=== PATIENT | female | born 1940 | race Caucasian/White ===

== ENCOUNTER → 2018-12-29 | Outpatient (CLI) | payer MEDICARE, SELFPAY | PROVIDERS: PCP Family Medicine; Visit Provider Nurse Practitioner Family | DX: E78.5 Hyperlipidemia, unspecified (principal); E55.9 Vitamin D deficiency, unspecified; R73.9 Hyperglycemia, unspecified | CPT/HCPCS: 85027; 36415; 80061; 80053; 82306; 83036 ==

== ENCOUNTER 2019-07-28 13:39 | Outpatient (CLI) | payer MEDICARE, SELFPAY ==
--- NOTE | ~2019-07-28 | MM_ITS ---
EXAMINATION: MM screening narendra BI w zack HISTORY: Screening mammogram TECHNIQUE: Craniocaudal and mediolateral oblique 3-D tomosynthesis images were obtained and synthetic 2-D images were generated. CAD analysis was submitted and interpreted. COMPARISON: Comparison to multiple prior studies sequentially, with oldest reviewed study dated 05/27. BREAST PARENCHYMAL COMPOSITION: There are scattered areas of fibroglandular density. FINDINGS: There is a new focal asymmetry in the upper outer quadrant of the right breast. The left br east is stable without evidence for malignancy. IMPRESSION: 1. New focal asymmetry upper outer quadrant of the right breast. 2. Additional mammographic views and possible breast ultrasound are recommended. BI-RADS Category 0: Incomplete: Needs additional imaging evaluation. Reviewed, dictated and finalized at location A. IMPRESSION: 1. New focal asymmetry upper outer quadrant of the right breast. 2. Additional mammographic views and possible breast ultrasound are recommended . BI-RADS Category 0: Incomplete: Needs additional imaging evaluation.
== END 2019-07-28 13:40 | disposition home or self-care (01) ==
LOC: ANHIMG 13:44
PROVIDERS: PCP Family Medicine; Visit Provider Family Medicine
DX: Z12.31 Encounter for screening mammogram for malignant neoplasm of breast (principal); R92.8 Other abnormal and inconclusive findings on diagnostic imaging of breast
CPT/HCPCS: 77063; 77067

== ENCOUNTER 2019-08-07 13:11 | Outpatient (CLI) | payer MEDICARE, SELFPAY ==
--- NOTE | ~2019-08-07 | MMUS_ITS ---
EXAMINATION: MM diagnostic mammo unilat RT, US breast RT limited HISTORY: New focal mammographic asymmetry reported in the upper outer quadrant of right breast on 07/03 screening mammogram TECHNIQUE: Additional 3-D tomosynthesis images of the right breast were performed and synthetic 2-D i mages were generated. Rolled medial and rolled lateral craniocaudal views. CAD analysis was submitted and interpreted. High resolution upper outer quadrant right breast ultrasound was performed. COMPARISON: 07/28/2019, 07/22/2018, 07/11/2015 bilateral digital screening mammogram examinations. FINDINGS: MAMMOGRAPHIC FINDINGS: No reproducible mass lesion is evident. There is suggestion of some focal architectural distortion in the outer mid right breast at approximately 9-10:00 7 cm deep to the nipple. Sonographic correlation is recommended. ULTRASOUND: There is approximately 4. 4,000,001 6.5 mm deep antiparallel hypoechogenicity with some focal shadowi ng in the right breast at 9:00 6 cm from the nipple. Ultrasound-guided biopsy is recommended. IMPRESSION: 1. Suspected mass at 9:00 6 cm from nipple with shadowing 2. Ultrasound-guided biopsy of 9:00 lesion is recommended. BI-RADS category 4, suspicious findings. Dr. Delacruz telephoned the report and ultrasound guided biopsy recommendation to Dr. Brambila's voicemail on 08/07/2019 at 1450 hours. Reviewed, dictated and finalized at location A. IMPRESSION: 1. Suspected mass at 9:00 6 cm from nipple with shadowing 2. Ultrasound-guided biopsy of 9:00 lesion is recommended. BI-RADS category 4, suspicious findings. Dr. Delacruz telephoned the report and ultrasound guided biopsy recommendation to Ruddy Brambila's voicemail on 08/07/2019 at 1450 hours.
== END 2019-08-07 13:12 | disposition home or self-care (01) ==
PROVIDERS: PCP Family Medicine; Visit Provider Family Medicine
DX: R92.8 Other abnormal and inconclusive findings on diagnostic imaging of breast (principal)
CPT/HCPCS: 76642; 77065

== ENCOUNTER 2019-08-18 08:47 | Outpatient (CLI) | payer MEDICARE, SELFPAY ==
--- NOTE | ~2019-08-18 | US_ITS ---
EXAMINATION: US breast RT limited HISTORY: Unspecified lump of the right breast. Patient presents for ultrasound-guided biopsy. TECHNIQUE: Targeted ultrasound of the outer right breast was performed. FINDINGS: The mass previously identified for biopsy was not identified. This was discussed with the p atient and a course of imaging follow-up was agreed upon. IMPRESSION: Previously described right breast mass not definitely seen. Follow-up right diagnostic mammogram and ultrasound in six months are recommended. BI-RADS category 3, probably benign findings. Reviewed, dictated and finalized at location A. IMPRESSION: Previously described right breast mass not definitely seen. Follow-up right ernie gnostic mammogram and ultrasound in six months are recommended. BI-RADS category 3, probably benign findings.
== END 2019-08-18 08:48 | disposition home or self-care (01) ==
LOC: ANHIMG 08:48
PROVIDERS: PCP Family Medicine; Visit Provider Nurse Practitioner
DX: N63.11 Unspecified lump in the right breast, upper outer quadrant (principal)
CPT/HCPCS: 76642

== ENCOUNTER 2019-09-23 15:23 | Outpatient (CLI) | payer MEDICARE, SELFPAY ==
[2019-09-23 16:57] LABS: Basophils Absolute Auto 0.1 K/mm3 (0.0-0.1); Basophils Percent Auto 0.4 % (0.2-1.2); Eosinophils Absolute Auto 0.1 K/mm3 (0-0.3); Eosinophils Percent Auto 0.9 % (0-4.4); Hematocrit 46.2 % (37.0-47.0); Immature Granulocyte Absolute 0.03 K/mm3 (0.00-0.031); Immature Granulocyte Percent A 0.3 % (0-0.5); Lymphocytes Absolute Auto 5.72 K/mm3 (0.9-3.2); Mean Corpuscular HGB Conc 32.5 g/dl (32-36); Mean Corpuscular Hemoglobin 31.3 pg (26-34); Mean Corpuscular Volume 96.3 fl (80-100); Mean Platelet Volume 10.7 fl (7.4-10.4); Monocytes Absolute Auto 0.9 K/mm3 (0.1-0.6); Monocytes Percent Auto 8.2 % (2.6-8.5); Neutrophils Absolute Auto 4.6 K/mm3 (1.3-6.7); Neutrophils Percent Auto 40.2 % (45.5-73.1); Platelet Count Result 263 k/mm3 (150-375); Red Cell Distribution Width 13.2 % (11.5-14.5); White Blood Count 11.4 K/mm3 (4.5-10.0)
[2019-09-23 17:04] LABS: Alanine Aminotransferase 33 U/L (4-35); Albumin Level 4.5 g/dL (3.5-5.1); Alkaline Phosphatase 76 U/L (38-126); Amylase 87 U/L (30-110); Anion Gap 14.3 mmol/L (7-16); Aspartate Amino Transferase 41 U/L (14-36); Bilirubin,Total 0.4 mg/dL (0.2-1.3); Blood Urea Nitrogen 17 mg/dL (7-17); Calcium 9.4 mg/dL (8.4-10.2); Carbon Dioxide 24 mmol/L (22-30); Chloride 107 mmol/L (98-107); Estimated Glomerular Filt Rate > 60; Glucose 127 mg/dL (65-105); Lipase 65 U/L (23-300); Potassium 4.3 mmol/L (3.4-5.0); Sodium 141 mmol/L (137-145)
== END 2019-09-23 15:24 | disposition home or self-care (01) ==
PROVIDERS: PCP Family Medicine; Visit Provider Nurse Practitioner
DX: R10.9 Unspecified abdominal pain (principal)
CPT/HCPCS: 36415; 80053; 82150; 83690; 85025

== ENCOUNTER 2019-09-29 13:54 | Outpatient (CLI) | payer MEDICARE, SELFPAY ==
--- NOTE | ~2019-09-29 | CT_ITS ---
EXAMINATION: CT abdomen pelvis w con EXAM DATE: 09/29/2019 14:31 INDICATION: Left lower quadrant pain. On antibiotics. History diverticulitis. TECHNIQUE: Spiral CT of the abdomen and pelvis was performed following intravenous injection of 100 m L Omnipaque 350. Axial, coronal and sagittal images were reviewed. The dose-length product (DLP) fo r this examination was 635.59 mGy-cm. The exposure was tailored according to patient size (auto mA e xposure control), and iterative reconstruction (ASIR) was used as additional dose reduction technique . Comparison is made to prior examination from 03/21/2018. FINDINGS: The liver, spleen, adrenal glands and pancreas are unremarkable. There are cholecystectomy clips. Portal and splenic veins are patent. Kidneys enhance symmetrically. There is no hydronephr osis. Small region of left renal cortical scarring likely result of cryoablation, without evidence of reoccurrence of previously seen renal cell cancer. The uterus is not identified and has likely been surgically resected. The bladder is unremarkable. There is no retroperitoneal or pelvic lymphadeno bentley. Small umbilical fat-containing hernia. Identified. There is moderate descending and sigmoid colonic diverticulosis, with equivocal mild infl ammation at the descending/sigmoid colonic junction, possible mild acute diverticulitis. No abscess o r perforation. The stomach and small bowel are unremarkable. There is expected amount of colonic st ool. No free intraperitoneal gas. The heart is normal in size. There are no pericardial or pleur al effusions. Left lower lobe 5 mm granuloma unchanged. Small pelvic sclerotic foci unchanged likel y bone islands. IMPRESSION: 1. Possible mild acute uncomplicated diverticulitis. 2. Interval left renal cryoablation changes without suspicion of local recurrence. Reviewed, dictated and finalized at location A. IMPRESSION: 1. Possible mild acute uncomplicated diverticulitis. 2. Interval left renal cryoablation changes without suspicion of local recurre nce.
== END 2019-09-29 13:55 | disposition home or self-care (01) ==
LOC: ANHIMG 13:57
PROVIDERS: PCP Family Medicine; Visit Provider Nurse Practitioner
DX: R10.9 Unspecified abdominal pain (principal)
CPT/HCPCS: 74177; Q9967

== ENCOUNTER 2019-11-21 00:42 | Outpatient (CLI) | payer MEDICARE, SELFPAY ==
[2019-11-21 18:37] LABS: SARS-CoV-2 RNA PCR Negative
== END 2019-11-21 00:43 | disposition home or self-care (01) ==
LOC: ANHCOVIDDT 00:43
PROVIDERS: PCP Family Medicine; Visit Provider Internal Medicine Gastroenterology
DX: Z01.818 Encounter for other preprocedural examination (principal); Z20.828 Contact with and (suspected) exposure to other viral communicable diseases
CPT/HCPCS: 87635; C9803; U0003

== ENCOUNTER 2019-11-24 01:08 | Day surgery (SDC) | payer MEDICARE, SELFPAY ==
[2019-11-16 12:56] VITALS: BMI 29.9
[2019-11-24 07:38] VITALS: BP 105/62; PULSE 82; RESP 16; TEMP 36.6; O2SAT 99; BMI 28.7
[2019-11-24] MEDS: LACTATED RINGERS 1,000 ML 150 ML IV CONT (07:49)
--- NOTE | 2019-11-24 08:05 | WPDANESEPPF ---
Anes - Initial Pre Proc Eval Procedure: Operation Date: 11/24/19 09:00 Proposed Procedures p Colonoscopy - Ranjit Tovar MD Date/Time: 11/24/19 08:05 Surgeon: Ranjit Tovar MD Pre Op Diagnosis: diverticulitis Patient Data Age: 79 Gender: F Height: 5 ft 5 in Weight: 78.3 kg Last Vital Signs Temp 98 F 11/24/19 07:38 Pulse 82 11/24/19 07:38 Resp 16 11/24/19 07:38 BP 105/62 11/24/19 07:38 Pulse Ox 99 11/24/19 07:38 Allergies Allergy/AdvReac Type Severity Reaction Status Date / Time Penicillins Allergy Intermediate unknown Verified 11/24/19 07:36 codeine Allergy Unknown Unknown Verified 11/24/19 07:36 Home Medications Medication Instructions Recorded Confirmed Type aspirin 81 mg tablet,delayed 81 mg PO DAILY 06/30/19 11/24/19 History release atorvastatin 20 mg tablet 20 mg PO DAILY 90 Days #90 tablet 06/30/19 11/24/19 Rx multivitamin 1 tablet PO DAILY 06/30/19 11/24/19 History omega-3 fatty acids [Fish Oil 1,000 mg PO DAILY 11/16/19 11/24/19 History Concentrate] Patient hx anesthesia problems: none Family hx anesthesia problems: none PMFSH Past Medical History Medical History (Updated 10/22/19 @ 10:56 by Ranijt Tovar MD) Arthralgia History of basal cell cancer (~2017) History of vitamin D deficiency Hyperlipidemia (~2017) LLQ pain Pain in left buttock Prediabetes (~2018) Renal cell carcinoma (~2018) Surgical History Surgical History History of cholecystectomy (~1994) History of hysterectomy (~1988) Social History Social History (Updated 06/30/19 @ 13:51 by Hailey BrambilaMD) Social History: moved from [place] to [place] 12/2017; Smoking status: Never smoker Second hand tobacco smoke exposure: Yes (family members smoke) Alcohol intake: current Alcohol use details: 1 PER MONTH Substance use: never Substance use type: does not use Living arrangements: alone Additional living arrangements comments[place] Gender identity (if verbalized by the patient): Female Spiritual care concerns: No Agree to blood products: Yes Anes - Eval Final PreProcedure Day of Procedure 11/24/19 08:05 Patient weight: overweight Heart: regular rate and rhythm Lungs: clear to auscultation Airway: Mallampati scale class III Neurological: alert and oriented Last oral intake: >/= 8 hours ASA classification: III Emergent: no Anesthetic plan: proceed Anesthesia type and monitoring: general GIVS and standard monitoring Informed Consent: The patient's anesthetic plan and its attendant risks and benefits were discussed with the patient/family/POA. Questions were solicited and answers provided to the satisfaction of the patient/family/POA.
--- NOTE | 2019-11-24 08:16 | PM.HPGS ---
History of Present Illness History of Present Illness Consent: Risks, benefits, and alternatives have been discussed and questions answered. Patient agrees to proceed with procedure. Chief complaint: diverticulitis Narrative: Marlee Angel is a 79 year old female with history of diverticulitis, last colonoscopy 7 years ago Review of Systems Constitutional: Constitutional: Denies headache(s) and Denies weakness Eyes: Eyes: Denies blurry vision ENT: Reports Normal hearing present, Denies headache(s) and Denies neck pain Cardiovascular: Cardiovascular: Denies chest pain and Denies dyspnea Respiratory: Respiratory: Denies dyspnea Gastrointestinal: Gastrointestinal: Reports no additional gastrointestinal complaints Genitourinary: Genitourinary: Denies dysuria Musculoskeletal: Musculoskeletal: Denies neck pain Integumentary/Breasts: Skin/Breast: Denies dry skin Neurologic: Reports Normal hearing present, Denies headache(s) and Denies weakness Psychiatric: Psychiatric: Denies anxiety Endocrine: Endocrine: Denies change in body appearance Hematologic/Lymphatic: Hematologic/Lymphatic: Denies easy bleeding Allergic/Immunologic: Allergic/Immunologic: Denies urticaria PMFSH Past Medical History Medical History (Updated 10/22/19 @ 10:56 by Ranjit Tovar MD) Arthralgia History of basal cell cancer (~2017) History of vitamin D deficiency Hyperlipidemia (~2017) LLQ pain Pain in left buttock Prediabetes (~2018) Renal cell carcinoma (~2018) Surgical History Surgical History History of cholecystectomy (~1994) History of hysterectomy (~1988) Social History Social History (Updated 06/30/19 @ 13:51 by Hailey BrambilaMD) Social History: moved from [place] to [place] 12/2017; Smoking status: Never smoker Second hand tobacco smoke exposure: Yes (family members smoke) Alcohol intake: current Alcohol use details: 1 PER MONTH Substance use: never Substance use type: does not use Living arrangements: alone Additional living arrangements comments: private apt [place] Gender identity (if verbalized by the patient): Female Spiritual care concerns: No Agree to blood products: Yes Meds Home Medications and Allergies Home Medications Medication Instructions Recorded Confirmed Type aspirin 81 mg tablet,delayed 81 mg PO DAILY 06/30/19 11/24/19 History release atorvastatin 20 mg tablet 20 mg PO DAILY 90 Days #90 tablet 06/30/19 11/24/19 Rx multivitamin 1 tablet PO DAILY 06/30/19 11/24/19 History omega-3 fatty acids [Fish Oil 1,000 mg PO DAILY 11/16/19 11/24/19 History Concentrate] Allergies Allergy/AdvReac Type Severity Reaction Status Date / Time Penicillins Allergy Intermediate unknown Verified 11/24/19 07:36 codeine Allergy Unknown Unknown Verified 11/24/19 07:36 Vital Signs Vital Signs - 24 hr 11/24/19 07:38 Temperature 98 F Pulse Rate 82 Respiratory Rate 16 Blood Pressure 105/62 Pulse Oximetry 99 Exam Const: General: comfortable and no acute distress HENMT: General nose exam: Normal nares present Eyes: General: appearance normal, both eyes and all related structures Neck: Neck: no JVD Resp: Auscultation: clear to auscultation bilaterally Cardio: Rate: regular rate Rhythm: regular rhythm GI: Inspection: non-distended GI Palp: Yes Soft to palpation Skin: General skin exam: normal color Neuro: General: gait normal Speech: normal speech Extrem: General: normal to inspection Psych: Mental Status: mental status grossly normal Assessment and Plan Assessment and plan (1) LLQ pain: Code(s): R10.32 - Left lower quadrant pain Status: Acute (2) Acute diverticulitis: Code(s): K57.92 - Diverticulitis of intestine, part unspecified, without perforation or abscess without bleeding Status: Acute Assessment and Plan:
[2019-11-24 08:41] VITALS: BP 89/46; PULSE 67; RESP 17; O2SAT 95
[2019-11-24 08:51] VITALS: BP 95/47; PULSE 67; RESP 17; O2SAT 95
[2019-11-24 09:01] VITALS: BP 97/52; PULSE 62; RESP 14; O2SAT 96
== END 2019-11-24 09:25 | disposition home or self-care (01) ==
PROVIDERS: PCP Family Medicine; Visit Provider Internal Medicine Gastroenterology
PROC: 0DJD8ZZ Inspection of Lower Intestinal Tract, Via Natural or Artificial Opening Endoscopic (ICD-10-PCS; CPT 45378; principal; 2019-11-24 09:00)
DX: K57.30 Diverticulosis of large intestine without perforation or abscess without bleeding (principal); K64.8 Other hemorrhoids; R73.03 Prediabetes; E78.5 Hyperlipidemia, unspecified; E55.9 Vitamin D deficiency, unspecified; Z85.528 Personal history of other malignant neoplasm of kidney; Z85.828 Personal history of other malignant neoplasm of skin
CPT/HCPCS: 45378; J2704; J7120

== ENCOUNTER 2020-02-11 11:40 | Outpatient (CLI) | payer MEDICARE, SELFPAY ==
--- NOTE | ~2020-02-11 | DEXA_ITS ---
Bone Density Report Name: Marlee Angel Age: 79 Sex: Female Ethnicity: White Date of : 1940 Indication: postmenopausal; prior fracture; hysterectomy; Referring Provider: Tiffany Hidalgo Study: Bone densitometry was performed. Exam Date: February 11, 2020 Accession number: [id number] Bone Density: Region BMD T-score Z-score Classification AP Spine (L1-L4) 1.092 0.4 3.0 Normal Femoral Neck (Left) 0.710 -1.3 1.0 Osteopenia Total Hip (Left) 0.950 0.1 2.0 Normal Total Hip Bilateral Avg 0.964 0.2 2.1 Normal Femoral Neck (Right) 0.819 -0.3 1.9 Normal Total Hip (Right) 0.977 0.3 2.2 Normal World Health Organization criteria for BMD impression classify patients as: Normal (T-score at or above -1.0), Osteopenia (T-score between -1.0 and -2.5), or Osteoporosis (T-score at or below -2.5). 10-year Fracture Risk(1): Major Osteoporotic Fracture 17% Hip Fracture 2.9% Reported Risk Factors: [place] (), Neck BMD=0.710, BMI=30.0, previous fracture (1) FRAX(R) Version 3.08. Fracture probability calculated for an untreated patient. Fracture probability may be lower if the patient has received treatment. Clinical Information Provided by Patient: Has had a low trauma fracture Has used the following medications: Vitamin D Has the following medical conditions: Hysterectomy Patient maximum height was 65 Menopause Age: 43 No regular weight bearing exercise Drinks caffeinated beverages Onset of menses at age 15 Number of children 3 Impression: The patient has low bone mass, based on the Left Femoral Neck T-score. The patient has an estimated ten-year risk of hip fracture of 2.9% and an estimated ten-year risk of major fracture of 17%, based on the WHO FRAX algorithm. The patient has risk factors, including: previous fracture. Discussion: BONE DENSITY IS LOW AT ONE OR MORE SKELETAL SITES. This patient's lowest T-score is low at one or more skeletal sites. It meets the World Health Organization's (WHO) criteria for ?low bone mass? (T-score between -1.0 and -2.5). The patient's 10-year risk of fracture as calculated by FRAX is less than the threshold where pharmacological therapy is recommended by the National Osteoporosis Foundation (NOF). However, all treatment decisions require clinical judgment and consideration of individual patient factors, including patient preferences, comorbidities, previous drug use, risk factors not captured in the FRAX model (e.g., frailty, falls, vitamin D deficiency, increased bone turnover, interval significant decline in bone density) and possible under or overestimation of fracture risk by FRAX. The patient should follow a healthful lifestyle (good nutrition with adequate calcium and vitamin D, and appropriate weight-bearing exercise). Follow-Up: Consider repeating this stud
--- NOTE | ~2020-02-11 | MMUS_ITS ---
EXAMINATION: MM diagnostic narendra RT w zack, US breast RT limited HISTORY: Follow-up right breast asymmetry TECHNIQUE: Additional 3-D tomosynthesis images of the right breast were performed and synthetic 2-D i mages were generated. CAD analysis was submitted and interpreted. High resolution right breast ultras ound was performed. COMPARISON: Comparison to multiple prior studies sequentially, with oldest reviewed study dated 07/01. BREAST PARENCHYMAL COMPOSITION: Breast composed of scattered areas of fibroglandular density. FINDINGS: MAMMOGRAPHIC FINDINGS: There are no suspicious masses, calcifications or architectural distortion in the right breast to sug gest malignancy. ULTRASOUND: Limited right breast ultrasound: Normal heterogeneous echotexture in the area of previously identified abnormality. No discrete solid or cystic mass. IMPRESSION: 1. No mammographic or sonographic evidence for malignancy in the right breast. 2. Routine yearly screening mammogram and regular clinical breast examination are recommended. BI-RADS CATEGORY 1 - NEGATIVE Reviewed, dictated and finalized at location A. DRAWING CHECKER IMPRESSION: 1. No mammographic or sonographic evidence for malignancy in the right breast. 2. Routine yearly screening mammogram and regular clinical breast examination a re recommended. BI-RADS CATEGORY 1 - NEGATIVE
== END 2020-02-11 11:41 | disposition home or self-care (01) ==
PROVIDERS: PCP Family Medicine; Visit Provider Nurse Practitioner Family
DX: Z78.0 Asymptomatic menopausal state (principal); N63.0 Unspecified lump in unspecified breast; R92.8 Other abnormal and inconclusive findings on diagnostic imaging of breast; M85.852 Other specified disorders of bone density and structure, left thigh
CPT/HCPCS: 76642; 77061; 77065; 77080; G0279

== ENCOUNTER 2020-08-02 15:43 | Outpatient (CLI) | payer MEDICARE, SELFPAY ==
--- NOTE | ~2020-08-02 | MM_ITS ---
EXAMINATION: MM screening [facility] BI w zack HISTORY: Screening TECHNIQUE: Craniocaudal and mediolateral oblique 3-D tomosynthesis images were obtained and synthetic 2-D images were generated. CAD analysis was submitted and interpreted. COMPARISON: Comparison to multiple prior studies sequentially, with oldest reviewed study dated 06/2014. BREAST PARENCHYMAL COMPOSITION: There are scattered areas of fibroglandular density. FINDINGS: There is no evidence of suspicious mass, calcification, or architectural distortion to sugg est malignancy in either breast. There has been no suspicious interval change. IMPRESSION: 1. No mammographic evidence of malignancy. 2. Recommend routine screening mammography in one year. BI-RADS Category 1: Negative Reviewed, dictated and finalized at location A.
== END 2020-08-02 15:44 | disposition home or self-care (01) ==
LOC: ANHIMG 15:47
PROVIDERS: PCP Family Medicine; Visit Provider Nurse Practitioner Family
DX: Z12.31 Encounter for screening mammogram for malignant neoplasm of breast (principal)
CPT/HCPCS: 77063; 77067

== ENCOUNTER 2020-11-24 18:12 | Emergency (ER) | payer MEDICARE, SELFPAY ==
--- NOTE | ~2020-11-24 | XR_ITS ---
EXAMINATION: XR ankle RT min 3V, XR foot RT 2V DATE: 11/24/2020 18:47 INDICATION: Right foot and ankle pain post fall with twisting injury. TECHNIQUE: 1. Anteroposterior, mortise, additional oblique and lateral view of the right ankle were obtained. 2. Dorsoplantar, two oblique and lateral views of the right foot were obtained. COMPARISON: None. FINDINGS: Right ankle: Normal alignment. Small ossific density along the lateral margin of the anterior process of the calca neus without definitive donor site equivocal for age indeterminate small avulsion fracture versus het erotopic ossification related to chronic sprain of one of the calcaneocuboid ligaments. Osteophyte al yomaira the medial margin of the medial malleolus with heterotopic ossicle near the tip consistent with s equela of chronic medial ankle sprain. No other lesions suspicious for fracture. Joint spaces appear relatively preserved. Moderate-sized plantar calcaneal spur with small Achilles calcaneal spur. Soft tissue swelling about the lateral malleolus and lateral hindfoot. No right ankle joint effusion. Right foot: Alignment is normal. Irregular cortical contours but without definitive sharp angulation or linear elena cency at the base of the second-fourth toes which could be either degenerative in etiology or sequela of fractures which would be more likely chronic than acute. No other lesions suspicious for fracture . 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 No significant soft tissue swelling at the forefoot near the bas e of the toes is also decreases suspicion for fracture at these locations. IMPRESSION: 1. Small calcific density near the lateral margin of the anterior process of the calcaneus equivocal for age indeterminate avulsion fracture versus heterotopic ossification related to chronic sprain of one of the calcaneocuboid ligaments. 2. Irregular cortical contours at the proximal metaphyses of the second-fifth proximal phalanges whic h has a more chronic appearance likely either degenerative or sequela of old trauma. Could not absolu tely exclude acute fracture though there is no significant surrounding soft tissue swelling. Correlat e for point tenderness at these locations. Reviewed, dictated and finalized at location A. IMPRESSION: 1. Small calcific density near the lateral margin of the anterior process of th e calcaneus equivocal for age indeterminate avulsion fracture versus heterotopi c ossification related to chronic sprain of one of the calcaneocuboid ligaments . 2. Irregular cortical contours at the proximal metaphyses of the second-fifth p roximal phalanges which has a more chronic appearance likely either degenerativ e or sequela of old trauma. Could not absolutely exclude acute fracture though there is no significant surrounding soft tissue swelling. Correlate for point t enderness at these locations.
--- NOTE | ~2020-11-24 | XR_ITS ---
EXAMINATION: XR hand LT min 3V DATE: 11/24/2020 18:47 INDICATION: Left hand pain post fall TECHNIQUE: Posteroanterior, oblique and lateral views of the left hand were obtained. COMPARISON: None. FINDINGS: Alignment is normal. No fracture. Polyarticular osteoarthritis, moderate to severe at the first carpo metacarpal joint and mild at the second and fifth distal interphalangeal joints. Soft tissues are unr emarkable. IMPRESSION: 1. 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 No acute osse ous abnormality. Reviewed, dictated and finalized at location A. IMPRESSION: 1. Polyarticular osteoarthritis, moderate to severe at the first carpometacarpa l joint. No acute osseous abnormality.
[2020-11-24 18:31] VITALS: BP 153/66; PULSE 70; RESP 18; TEMP 37.2; O2SAT 97
--- NOTE | 2020-11-24 18:37 | ED.GENADULT ---
HPI - General Adult General Chief complaint: Extremity Injury, Lower Stated complaint: r/ankle and left wrist Source: patient Mode of arrival: ambulatory Limitations: no limitations History of Present Illness HPI narrative: Pleasant 80 y/o female. PMHx HLD. Presents to ED today with acute complaints of RT ankle and LT hand pain after suffering a fall immediately [employer]. Pt reports to have been walking, 'tripped', and twisted right ankle . She tells me she broke her fall with her LT hand. No closed head injury, neck or back pain, LOC. No loss of extremity sensation or control. No additional acute c/o injury or illness has been relayed upon PE. Related Data Home Medications Medication Instructions Recorded Confirmed aspirin 81 mg tablet,delayed 81 mg PO DAILY 06/30/19 07/11/20 release multivitamin 1 tablet PO DAILY 06/30/19 07/11/20 omega-3 fatty acids [Fish Oil 1,000 mg PO DAILY 11/16/19 07/11/20 Concentrate] cholecalciferol (vitamin D3) 25 25 mcg PO DAILY 01/15/20 07/11/20 mcg (1,000 unit) capsule vitamin E 200 unit capsule 200 unit PO DAILY 07/11/20 07/11/20 Allergies Allergy/AdvReac Type Severity Reaction Status Date / Time Penicillins Allergy Intermediate unknown Verified 11/24/20 19:21 codeine Allergy Unknown Unknown Verified 11/24/20 19:21 Review of Systems Review of Systems: CONSTITUTIONAL: Denies fever, chills, sweats. EYES: Denies visual changes, redness, discharge. ENT: Denies rhinorrhea, congestion, sore throat, otalgia. CARDIOVASCULAR: Denies chest pain, palpitations, edema. RESPIRATORY: Denies dyspnea, wheezing, cough GASTROINTESTINAL: Denies abdominal pain, nausea, vomiting, diarrhea. GENITOURINARY: Denies dysuria, hematuria, abnormal discharge SKIN: Denies rash or itching. MUSCULOSKELETAL: RT ankle and LT hand pain. Denies acute back pain, neck pain, or myalgia. NEUROLOGIC: Denies numbness, or focal weakness. PSYCHIATRIC: Denies anxiety or depression. All systems reviewed & are unremarkable except as noted in HPI and below PMFSH Past Medical History Medical History Acute diverticulitis Arthralgia History of basal cell cancer (~2018) Hyperlipidemia (~2018) Osteopenia Prediabetes (~2018) Renal cell carcinoma (~2018) Surgical History Surgical History History of cholecystectomy (~1994) History of hysterectomy (~1988) Family History Family History Grandparent Cerebrovascular accident Father Family history of chronic obstructive pulmonary disease Mother Family history of chronic obstructive pulmonary disease Social History Social History Social History: moved from [place] to [place] 12/2017; Smoking status: Never smoker Second hand tobacco smoke exposure: Yes (family members smoke) Alcohol intake: current Alcohol use details: 1 PER MONTH Substance use: never Substance use type: does not use Additional living arrangements comments: private apt in [facility] Gender identity (if verbalized by the patient): Female Spiritual care concerns: No Agree to blood products: Yes Exam Narrative: GENERAL: This is a well-nourished, well-developed adult, in no apparent distress. HEAD: normocephalic, atraumatic. EYES: PERRL. Sclera clear/white. EARS: External ears normal. NOSE: External nose normal. THROAT: Mucous membranes moist. NECK: Neck supple, non-tender without lymphadenopathy, masses or thyromegaly. Full ROM cervical neck. CARDIOVASCULAR: Regular rate and rhythm without murmurs, gallops, or rubs. Good pulses RLE & LUE. RESPIRATORY: Clear to auscultation. Breath sounds equal bilaterally. No wheezes, rales, or rhonchi. GASTROINTESTINAL: Abdomen soft, non-tender, nondistended. Bowel soun
== END 2020-11-24 19:53 | disposition home or self-care (01) ==
PROVIDERS: Emergency Provider Nurse Practitioner Adult Health
DX: S93.401A Sprain of unspecified ligament of right ankle, initial encounter (principal); S96.911A Strain of unspecified muscle and tendon at ankle and foot level, right foot, initial encounter; W01.0XXA Fall on same level from slipping, tripping and stumbling without subsequent striking against object, initial encounter; S92.901A Unspecified fracture of right foot, initial encounter for closed fracture; X58.XXXA Exposure to other specified factors, initial encounter
CPT/HCPCS: 73130; 73610; 73620; 99213; G0463

== ENCOUNTER → 2021-09-25 12:15 | Outpatient (CLI) | payer MEDICARE, SELFPAY ==
--- NOTE | ~2021-09-25 | MM_ITS ---
EXAMINATION: MM screening narendra BI w zack HISTORY: Screening mammogram TECHNIQUE: Craniocaudal and mediolateral oblique 3-D tomosynthesis images were obtained and synthetic 2-D images were generated. CAD analysis was submitted and interpreted. COMPARISON: 08/02/2020 bilateral screening mammogram 02/11/2020 diagnostic right mammogram and limited right breast ultrasound 08/07/2019 limited right breast ultrasound limited right breast ultrasound 07/28/2019, 07/22/2018, 07/11/2015 bilateral screening mammogram examinations BREAST PARENCHYMAL COMPOSITION: There are scattered areas of fibroglandular density. FINDINGS: There is no evidence of suspicious mass, calcification, or architectural distortion to sugg est malignancy in either breast. There has been no suspicious interval change. IMPRESSION: 1. No mammographic evidence of malignancy. 2. Recommend routine screening mammography in one year. BI-RADS Category 1: Negative Reviewed, dictated and finalized at location A.
== END ==
PROVIDERS: PCP Family Medicine; Visit Provider Family Medicine
DX: Z12.31 Encounter for screening mammogram for malignant neoplasm of breast (principal)
CPT/HCPCS: 77063; 77067

== ENCOUNTER 2022-01-20 11:36 | Emergency (ER) | payer MEDICARE, SELFPAY ==
--- NOTE | ~2022-01-20 | XR_ITS ---
EXAMINATION: XR chest 2V DATE: 01/20/2022 12:30 INDICATION: Productive cough and fatigue TECHNIQUE: PA and lateral views of the chest were obtained. COMPARISON: None FINDINGS: The lungs are clear with no focal airspace opacities, pulmonary edema, pleural effusion or pneumothor ax. The cardiomediastinal silhouette is normal. Atherosclerotic calcific a cyst at the anterior aorti c arch. Likely cholecystectomy clips in the upper abdomen. Mild thoracic spondylosis. IMPRESSION: 1. No acute cardiopulmonary disease. Reviewed, dictated and finalized at location A. [facility]
[2022-01-20 11:46] VITALS: BP 135/54; PULSE 82; RESP 20; TEMP 36.6; O2SAT 97
--- NOTE | 2022-01-20 12:10 | ED.URI ---
HPI - URI/Sore Throat General Chief Complaint: Upper Respiratory Infection Stated Complaint: Cough,Congestion,Headache Time Seen by Provider: 01/20/22 12:55 Source: patient Mode of arrival: ambulatory Limitations: no limitations History of Present Illness HPI Narrative: Ms. Angel is a 81-year-old female patient presenting to the clinic today with complaints of cough, congestion, headache, and sore throat. She reports this has been going on for approximately 2 weeks. States that she started clindamycin, Tessalon Perles, and albuterol inhaler yesterday after calling her PCP for some prescriptions. MD elicited complaint: cough, sore throat, nasal congestion and other (Headache) Related Data Home Medications Medication Instructions Recorded Confirmed aspirin 81 mg tablet,delayed 81 mg PO DAILY 06/30/19 11/20/21 release (Adult Low Dose Aspirin) multivitamin 1 tablet PO DAILY 06/30/19 11/20/21 omega-3 fatty acids 1,000 mg 1,000 mg PO DAILY 11/16/19 11/20/21 capsule (Fish Oil Concentrate) vitamin E 200 unit capsule 200 unit PO DAILY 07/11/20 11/20/21 cholecalciferol (vitamin D3) 25 50 mcg PO DAILY 10/02/21 11/20/21 mcg (1,000 unit) capsule Saccharomyces boulardii 250 mg 250 mg PO DAILY 11/20/21 11/20/21 capsule (Daily Probiotic (S. boulardii)) Allergies Allergy/AdvReac Type Severity Reaction Status Date / Time Penicillins Allergy Intermediate unknown Verified 11/20/21 13:17 codeine Allergy Unknown Unknown Verified 11/20/21 13:17 Review of Systems Review of Systems: Pertinent positives per HPI. Patient denies any fever, chills, rash, headache, visual changes, dizziness, cough, shortness of breath, chest pain, palpitations, nausea, vomiting, diarrhea, constipation, abdominal pain, or any urinary issues. [facility] Past Medical History Medical History Acute diverticulitis Arthralgia History of basal cell cancer (~2017) Hx of renal cell carcinoma (~06/2018) Hyperlipidemia (~2017) Osteopenia Prediabetes (~2018) Surgical History Surgical History History of cholecystectomy (~1994) History of hysterectomy (~1988) Family History Family History Grandparent Cerebrovascular accident Father Family history of chronic obstructive pulmonary disease Mother Family history of chronic obstructive pulmonary disease Social History Social History Social History: moved from [place] to [place] 12/2017; Smoking status: Never smoker Second hand tobacco smoke exposure: Yes (family members smoke) Alcohol intake: current Substance use: never Substance use type: does not use Additional living arrangements comments: private apt in [facility] Gender identity (if verbalized by the patient): Female Spiritual care concerns: No Agree to blood products: Yes Comments At the time of my signature, I reviewed and agree with the nursing past medical, surgical, social, and family history. There is no relevant family history pertinent to the patient complaint. Exam Narrative: General: Well-developed, well nourished, in no apparent distress Head: Normocephalic, atraumatic Eyes: Pupils equally round and reactive to light bilaterally, EOM intact, sclera and conjunctive clear, no discharge, lids normal Ears: TMs intact and clear, ear canals clear, no drainage, grossly hearing normal. Nose: Nares patent, clear neck discharge, severe inflammation, mild maxillary sinus tenderness. Mouth: Oral pharynx without lesions or masses, good dentition, MMM. Postnasal drip Neck: Supple, trachea midline, no enlargement of anterior or posterior cervical nodes, no thyroid masses or goiter palpable. Cardio: Regular rate and rhythm, s1 and s2 normal, no murmur appreciated. Resp: Faint inspiratory
== END 2022-01-20 13:15 | disposition home or self-care (01) ==
PROVIDERS: Emergency Provider Nurse Practitioner Family; PCP Nurse Practitioner Family
DX: J32.9 Chronic sinusitis, unspecified (principal); J40 Bronchitis, not specified as acute or chronic; E78.5 Hyperlipidemia, unspecified; Z85.828 Personal history of other malignant neoplasm of skin
CPT/HCPCS: 71046; 87081; 87880; 99213; G0463

== ENCOUNTER → 2022-10-03 11:58 | Outpatient (CLI) | payer MEDICARE, SELFPAY ==
--- NOTE | ~2022-10-03 | DEXA_ITS ---
Bone Density Report Name: DELFINA BILLS Age: 82 Sex: Female Ethnicity: White Date of : 1940 Indication: postmenopausal; screening for osteoporosis; hysterectomy; Referring Provider: Monse West Study: Bone densitometry was performed. Exam Date: October 03, 2022 Accession number: [id number] Bone Density: Region BMD T-score Z-score Classification AP Spine (L1-L4) 1.069 0.2 2.9 Normal Femoral Neck (Left) 0.650 -1.8 0.5 Osteopenia Total Hip (Left) 0.902 -0.3 1.8 Normal Femoral Neck (Right) 0.857 0.1 2.4 Normal Total Hip (Right) 0.936 0.0 2.0 Normal Total Hip Mean 0.919 -0.2 1.9 Normal World Health Organization criteria for BMD impression classify patients as: Normal (T-score at or above -1.0), Osteopenia (T-score between -1.0 and -2.5), or Osteoporosis (T-score at or below -2.5). 10-year Fracture Risk(1): Major Osteoporotic Fracture 14% Hip Fracture 3.6% Reported Risk Factors: [place] (), Neck BMD=0.650, BMI=29.7 (1) FRAX(R) Version 3.08. Fracture probability calculated for an untreated patient. Fracture probability may be lower if the patient has received treatment. Clinical Information Provided by Patient: Has used the following medications: Vitamin D Has the following medical conditions: Hysterectomy Patient maximum height was 65 Menopause Age: 47 No regular weight bearing exercise Drinks caffeinated beverages Onset of menses at age 14 Number of children 3 Impression: The patient has low bone mass, based on the Left Femoral Neck T-score. The patient has an estimated ten-year risk of hip fracture of 3.6% and an estimated ten-year risk of major fracture of 14%, based on the WHO FRAX algorithm. Discussion: BONE DENSITY IS LOW AT ONE OR MORE SKELETAL SITES. THE PATIENT'S BMD AND CLINICAL RISK FACTORS CONTRIBUTE TO THIS PATIENT'S INCREASED RISK OF FRACTURE. This patient's lowest T-score is low at one or more skeletal sites. It meets the World Health Organization's (WHO) criteria for ?low bone mass? (T-score between -1.0 and -2.5). The patient's 10-year risk of hip fracture as calculated by FRAX exceeds the threshold where pharmacological therapy is recommended by the National Osteoporosis Foundation (NOF). However, all treatment decisions require clinical judgment and consideration of individual patient factors, including patient preferences, comorbidities, previous drug use, risk factors not captured in the FRAX model (e.g., frailty, falls, vitamin D deficiency, increased bone turnover, interval significant decline in bone density) and possible under or overestimation of fracture risk by FRAX. The patient should follow a healthful lifestyle (good nutrition with adequate calcium and vitamin D, and appropriate weight-bearing exercise). Follow-Up: Consider a rep
--- NOTE | ~2022-10-03 | MM_ITS ---
EXAMINATION: MM screening narendra BI w zack HISTORY: Screening mammogram TECHNIQUE: Craniocaudal and mediolateral oblique 3-D tomosynthesis images were obtained and synthetic 2-D images were generated. CAD analysis was submitted and interpreted. COMPARISON: 09/25/2021, 08/02/2020 bilateral screening mammogram examinations BREAST PARENCHYMAL COMPOSITION: There are scattered areas of fibroglandular density. FINDINGS: There is no evidence of suspicious mass, calcification, or architectural distortion to sugg est malignancy in either breast. There has been no suspicious interval change. IMPRESSION: 1. No mammographic evidence of malignancy. 2. Recommend routine screening mammography in one year. BI-RADS Category 1: Negative Reviewed, dictated and finalized at location A.
== END ==
PROVIDERS: PCP Family Medicine; Visit Provider Nurse Practitioner Family
DX: Z12.31 Encounter for screening mammogram for malignant neoplasm of breast (principal); Z78.0 Asymptomatic menopausal state; M85.852 Other specified disorders of bone density and structure, left thigh
CPT/HCPCS: 77063; 77067; 77080

== ENCOUNTER 2023-01-19 10:15 | Inpatient (IN) | payer MEDICARE, SELFPAY ==
[2023-01-19] VITALS (10 sets, daily range): BP systolic 108–149; BP diastolic 54–105; PULSE 73–102; RESP 11–20; TEMP 36.4–36.8; O2SAT 95–100; BMI 27.5
--- NOTE | ~2023-01-19 | CT_ITS ---
EXAMINATION: CT abdomen pelvis w con DATE: 01/22/2023 11:08 INDICATION: Diverticulitis with perforation. TECHNIQUE: Computed tomography (CT) of the abdomen and pelvis was performed with 100 mL Omnipaque 350 intravenous contrast. Automated exposure control and iterative reconstruction technique were employe d. The dose-length product was 705.99 mGy-cm. COMPARISON: CT abdomen and pelvis 01/19/2023, 09/29/2019 FINDINGS: The visualized portions of lung bases demonstrate mild atelectasis. There is a 5 mm nodule in left lower lobe, stable from 09/21/2019, likely benign. No pleural effusion. The heart size is norm al. No pericardial effusion. Calcifications in the liver and spleen are consistent with old granuloma tous disease. There are changes of cholecystectomy. The adrenal glands are normal. There is a [address] in right kidney. There are changes of left kidney ablation. There is an umbilical hernia containin g fat. There is wall thickening of the sigmoid colon with surrounding fat stranding and foci of extra luminal gas and trace extraluminal fluid. There are no dilated loops of bowel. The appendix is not vi sualized. There are no pathologically enlarged lymph nodes. There is severe lumbar spondylosis. IMPRESSION: 1. Acute sigmoid diverticulitis with microperforation, stable from 01/19/2023. No drainable abscess. Reviewed, dictated and finalized at location E. NG MACHINE OPERATOR
--- NOTE | ~2023-01-19 | CT_ITS ---
EXAMINATION: CT abdomen pelvis w con DATE: 01/19/2023 11:31 INDICATION: Low abdominal pain. TECHNIQUE: Computed tomography (CT) of the abdomen and pelvis was performed with 100 mL Omnipaque 350 intravenous contrast. Automated exposure control and iterative reconstruction technique were employe d. The dose-length product was 698.20 mGy-cm. COMPARISON: CT abdomen and pelvis 09/29/19 FINDINGS: The visualized portions of the lung bases demonstrate mild atelectasis and mild chronic shira g disease. No pleural effusion. The heart size is normal. No pericardial effusion. Calcifications in the liver and spleen are consistent with old granulomatous disease. 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 The pancreas and adrenal glands are normal. There is a 7 mm cyst in right kidney. There are johansen ges of ablation of left kidney. There is wall thickening of the sigmoid colon with adjacent fat stran ding, punctate foci of free extraluminal gas, and trace extraluminal fluid. There are scattered diver ticula in the colon. The appendix is not visualized. There are no pathologically enlarged lymph nodes . There are benign bone islands in the pelvis. There is severe lumbar spondylosis. IMPRESSION: 1. Acute sigmoid diverticulitis with microperforation. No drainable abscess. Reviewed, dictated and finalized at location A. [employer] OPHTHALMOLOGIST
[2023-01-19 10:49] LABS: Basophils Percent Auto 0.1 % (0.2-1.2); Eosinophils Absolute Auto 0.1 K/mm3 (0-0.3); Eosinophils Percent Auto 0.3 % (0-4.4); Hematocrit 43.5 % (37.0-47.0); Hemoglobin 13.7 g/dL (12.0-15.0); Immature Granulocyte Absolute 0.07 K/mm3 (0.00-0.031); Immature Granulocyte Percent A 0.5 % (0-0.5); Lymphocytes Absolute Auto 2.85 K/mm3 (0.9-3.2); Lymphocytes Percent Auto 19.3 % (18.3-44.2); Mean Corpuscular HGB Conc 31.5 g/dl (32-36); Mean Corpuscular Hemoglobin 29.8 pg (26-34); Mean Corpuscular Volume 94.8 fl (80-100); Mean Platelet Volume 9.3 fl (7.4-10.4); Monocytes Absolute Auto 1.3 K/mm3 (0.1-0.6); Neutrophils Absolute Auto 10.4 K/mm3 (1.3-6.7); Neutrophils Percent Auto 70.8 % (45.5-73.1); Platelet Count Result 357 k/mm3 (150-375); Red Blood Count 4.59 M/mm3 (4.2-5.4); Red Cell Distribution Width 13.2 % (11.5-14.5); White Blood Count 14.7 K/mm3 (4.5-10.0)
[2023-01-19 10:56] LABS: Appearance Urine Clear (Clear); Bacteria Urine None Seen /hpf; Bilirubin Urine Negative (Negative); Blood Urine Negative (Negative); Color Urine Dark Yellow (Yellow); Glucose Urine UA Negative (Negative); Ketones Urine Trace mg/dL (Negative); Leukocyte Esterase Ur Negative LEU/UL (Negative); Nitrate Urine Negative (Negative); Non Pathogenic Casts 0-2; Protein Urine Trace mg/dL (Negative); Squamous Epithelial Cell Urine Occasional /hpf (Few); WBC Urine 0-5 /hpf; pH Urine 6.5 (5.0-9.0)
[2023-01-19 11:00] LABS: Alanine Aminotransferase 19 U/L (6-35); Albumin Level 4.5 g/dL (3.5-5.1); Alkaline Phosphatase 84 U/L (38-126); Anion Gap 13 mmol/L (8-16); Aspartate Amino Transferase 25 U/L (14-36); Bilirubin,Total 0.7 mg/dL (0.2-1.3); Blood Urea Nitrogen 15 mg/dL (7-17); Calcium 9.9 mg/dL (8.4-10.2); Carbon Dioxide 24 mmol/L (22-30); Chloride 104 mmol/L (98-107); Estimated CRCL calculation 49 ml/min; Estimated Glomerular Filt Rate > 60; Glucose 136 mg/dL (65-110); Lipase 50 U/L (23-300); Potassium 4.1 mmol/L (3.4-5.0); Sodium 141 mmol/L (137-145)
[2023-01-19 11:11] LABS: Add Urine Microscopic? YES
--- NOTE | 2023-01-19 11:33 | ED.GENADULT ---
HPI - General Adult General Chief complaint: Abdominal Pain Stated complaint: abd pain Time Seen by Provider: 01/19/23 11:01 History of Present Illness HPI narrative: Marlee Angel is an 82 y/o female who presents with reported hx of diverticulitis and typically when she starts to get pain she starts antibiotics and she improves. A couple months ago she followed up with a Employee Relations Manager who believed that most of pt's pain was from constipation and started her on a stool regimen and increased her water intake. She states that she started to get lower abdominal pain that was off and on for 2 weeks she called her GI specialist but did not get a call back. She states that her pain is getting worse to her lower abdomen for the past two days. Reports feeling nauseated denies vomiting/ reports chills but has not had a fever that she knows. denies changes with urination/ last BM was today and has had 2-3 soft formed stool since about 3 AM. No previous abdominal surgeries. Related Data Home Medications Medication Instructions Recorded Confirmed aspirin 81 mg tablet,delayed 81 mg PO DAILY 06/30/19 01/19/23 release (Adult Low Dose Aspirin) multivitamin 1 tablet PO DAILY 06/30/19 01/19/23 omega-3 fatty acids 1,000 mg 1,000 mg PO DAILY 11/16/19 01/19/23 capsule (Fish Oil Concentrate) polyethylene glycol 3350 17 gram 17 g PO DAILY 01/07/23 01/19/23 oral powder packet Allergies Allergy/AdvReac Type Severity Reaction Status Date / Time Penicillins Allergy Intermediate unknown Verified 01/19/23 10:34 codeine Allergy Unknown Unknown Verified 01/19/23 10:34 Review of Systems Review of Systems: CONSTITUTIONAL: Denies fever, chills, or sweats. EYES: Denies visual changes, redness, or discharge. ENT: Denies rhinorrhea, congestion, sore throat, or otalgia. CARDIOVASCULAR: Denies chest pain, palpitations, or edema. RESPIRATORY: Denies cough or dyspnea. GASTROINTESTINAL: Reports lower abdominal pain, nausea,no vomiting, or diarrhea. GENITOURINARY: Denies dysuria or hematuria. SKIN: Denies rash or itching. MUSCULOSKELETAL: Denies back pain, joint pain, or myalgia. NEUROLOGIC: Denies headache, numbness, dizziness, or weakness. PSYCHIATRIC: Denies anxiety or depression. 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 Family History Family History Grandparent Cerebrovascular accident Father Family history of chronic obstructive pulmonary disease Mother Family history of chronic obstructive pulmonary disease Social History Social History Social History: moved from [place] to [place] 12/2017; Smoking status: Never smoker Second hand tobacco smoke exposure: Yes (family members smoke) Alcohol intake: never Alcohol use details: 1 PER MONTH Substance use: never Substance use type: does not use Lack of Transportation: No Lack of Food: Never True Current Housing: I Have Housing Concerned About Future Housing: No Difficulty Paying Gas/Electric Bills: No Difficulty Paying for Meds: No Currently Unemployed: No Education: High School Diploma/GED Difficulty w/ Childcare or Family Care: No Living arrangements: alone Additional living arrangements comments: private apt in [facility] Occupation/Education: [employer]
[2023-01-19] MEDS: metroNIDAZOLE 500 MG/ISO 100ML 500 MG/100 ML BAG 100 MG IVPB ×2 (13:53→21:33)
[2023-01-19] MEDS: PANTOPRAZOLE SODIUM IV 40 MG VIAL IV PUSH (13:53)
[2023-01-19] MEDS: levoFLOXacin 750 MG/D5W 150 ML 750 MG/150 ML BAG 100 MG IVPB (14:50)
[2023-01-19] MEDS: fentaNYL CITRATE INJ (*CRX) 100 MCG/2 ML VIAL 50 MCG IV PUSH (14:53)
--- NOTE | 2023-01-19 14:56 | PM.IMHP ---
H&P: HPI History of Present Illness Date/Time: 01/19/23 14:56 Chief Complaint: Abdominal pain Narrative: Patient is an 82-year-old female who presents emergency room for abdominal pain and constipation. Patient states that this has been going on quite a while and she has been taking MiraLax with no improvement. She has a history of diverticulitis in sees Dr. Tamez at [place] for such. Her last colonoscopy was in 2019 with no polyps. Her last bowel movement was today which consisted of soft stool but it was very hard to have a bowel movement. She states she had 9/10 pain while having a bowel movement and at rest it is only 5/10. She denies seeing any blood. She also denies vomiting, chest pain, shortness of breath, fevers or wounds. She has been a little nauseous but otherwise doing okay. She is on aspirin as a preventative but has no history of stroke or cardiovascular disease. Review of Systems Review of Systems: All systems reviewed & are unremarkable except as noted in HPI and below PMFSH Past Medical History Medical History Acute diverticulitis Arthralgia History of basal cell cancer (~2017) Hx of renal cell carcinoma (~06/2018) [facility] - [facility] Gonzalez Hyperlipidemia (~2017) Osteopenia Prediabetes (~2018) Slow transit constipation Surgical History Surgical History History of cholecystectomy (~1994) History of hysterectomy (~1988) 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 Family History Family History Grandparent Cerebrovascular accident Father Family history of chronic obstructive pulmonary disease Mother Family history of chronic obstructive pulmonary disease Social History Social History Social History: moved from [place] to [place] 12/2017; Smoking status: Never smoker Second hand tobacco smoke exposure: Yes (family members smoke) Alcohol intake: current Alcohol use details: 1 PER MONTH Substance use: never Substance use type: does not use Lack of Transportation: No Lack of Food: Never True Current Housing: I Have Housing Concerned About Future Housing: No Difficulty Paying Gas/Electric Bills: No Difficulty Paying for Meds: No Currently Unemployed: No Education: High School Diploma/GED Difficulty w/ Childcare or Family Care: No Living arrangements: alone Additional living arrangements comments[place] Occupation/Education: retired Gender identity (if verbalized by the patient): Female Spiritual care concerns: No Agree to blood products: Yes Meds Home Medications and Allergies Home Medications Medication Instructions Recorded Confirmed Type aspirin 81 mg tablet,delayed 81 mg PO DAILY 06/30/19 01/07/23 History release (Adult Low Dose Aspirin) multivitamin 1 tablet PO DAILY 06/30/19 01/07/23 History omega-3 fatty acids 1,000 mg 1,000 mg PO DAILY 11/16/19 01/07/23 History capsule (Fish Oil Concentrate) lisinopril 10 mg tablet 10 mg PO DAILY #90 tabs 07/11/22 01/07/23 Rx cholecalciferol (vitamin D3) 125 250 mcg PO DAILY 10/04/22 01/07/23 History mcg (5,000 unit) capsule polyethylene glycol 3350 17 gram 17 g PO DAILY 01/07/23 01/07/23 History oral powder packet atorvastatin 10 mg tablet 10 mg PO DAILY #30 tabs 01/14/23 Rx Allergies Allergy/AdvReac Type Severity Reaction Status Date / Time Penicillins Allergy Intermediate unknown Verified 01/19/23 10:34 codeine Allergy Unknown Unknown Verified 01/19/23 10:34 Vital Signs Vital Signs - 24 hr 01/19/23 10:34 Temperature 98.3 F Pulse Rate 102 H Respiratory Rate 16 Blood Pressure 140/105 H Pulse Oximetry 98 Ex
--- NOTE | 2023-01-19 15:00 | WPDCN ---
Assessment and Plan Assessment and plan (1) Diverticulitis of colon with perforation: Code(s): K57.20 - Diverticulitis of large intestine with perforation and abscess without bleeding Status: Acute Assessment and Plan: Patient appears to have an episode of acute sigmoid diverticulitis with micro perforation but no evidence of a persistent pelvic abscess. She is not septic. White blood cell count is mildly elevated 14,700. Will keep her NPO except for ice chips for now. She will need bowel rest and IV antibiotics. Will start Levaquin and Flagyl for IV antibiotic therapy. If her white blood cell count decreases to normal levels her pain is pretty broad then may consider starting on clear liquids tomorrow morning. No need for urgent or emergent surgical management at this time. HPI Data of Consult Date/Time: 01/19/23 15:00 Requesting Physician: Cr Medina MD Primary Care Provider: Emani West MD Consult Narrative Reason for consult: acute sigmoid diverticulitis with micro perforation but without pelvic abs Narrative: Marlee Angel is a 82 year old female who states she has been having some slowly worsening lower abdominal pain over the past 2 weeks. She does see a materials management manager at the [facility] for history chronic constipation. Medical management with hydration and daily MiraLax has improved constipation issues. She denies any fevers chills and had no nausea or vomiting. She had bowel movements this morning which were nonbloody. White blood cell count was mildly elevated 14,700. No fever or tachycardia. CT scan abdomen pelvis was performed showing mild to moderate inflammatory changes around the sigmoid colon the small foci of free air suggestive of microperforation. No pelvic abscess is noted. The patient has had clinical episodes of diverticulitis in the past but no complicated episodes requiring hospitalization. Her last colonoscopy was 3 years ago. At that time no suspicious polyps were removed. Her prior surgical history includes laparoscopic cholecystectomy and total abdominal hysterectomy. She has also had laparoscopic ablation of a renal cell cancer. Review of Systems Review of Systems: The remainder of the review of systems to include constitutional, HEENT, cardiovascular, respiratory, GI, , integumentary, musculoskeletal, endocrine, immunologic, hematologic, psychiatric, and neurologic are all negative except for which is mentioned above in the HPI. [facility] Past Medical History Medical History Acute diverticulitis Arthralgia History of basal cell cancer (~2017) Hx of renal cell carcinoma (~06/2018) [facility] Gonzalez Hyperlipidemia (~2017) Osteopenia Prediabetes (~2018) Slow transit constipation Surgical History Surgical History History of cholecystectomy (~1994) History of hysterectomy (~1988) 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 Family History Family History Grandparent Cerebrovascular accident Father Family history of chronic obstructive pulmonary disease Mother Family history of chronic obstructive pulmonary disease Social History Social History Social History: moved from [place] to [place] 12/2017; Smoking status: Never smoker Second hand tobacco smoke exposure: Yes (family members smoke) Alcohol intake: current Alcohol use details: 1 PER MONTH Substance use: never Substance use type: does not use Lack of Transportation: No Lack of Food: Never True Current Housing: I Have Housing Concerned About Future Housing: No Difficulty Paying Gas/Electric Bills: No Difficulty Paying for Meds: N
--- NOTE | 2023-01-19 16:00 | ADMGEN ---
This patient, Marlee Angel, was admitted to 3 [facility] Surg Room 305-01 @ 1600. Patient/family oriented to hospital policies and general routines including ID bracelet, bed and alarms, visiting hours, pain management, procedures, bathroom and other care routines, personal items, smoking policy, room service/diet, and visiting hours. Information on how to activate the Rapid Response Team has been discussed. Patient/Family are encouraged to report perceived risks to care and to ask questions if they do not understand what they are told or what they should do.
[2023-01-19] MEDS: DEXTROSE 5%/LACTATED RINGERS 1,000 ML 125 ML IV CONT (17:45)
[2023-01-19] MEDS: ACETAMINOPHEN 325 MG TABLET 650 MG PO (17:50)
[2023-01-19 19:03] LABS: Basophils Percent Auto 0.2 % (0.2-1.2); Eosinophils Percent Auto 0.2 % (0-4.4); Hematocrit 39.5 % (37.0-47.0); Hemoglobin 12.6 g/dL (12.0-15.0); Immature Granulocyte Absolute 0.05 K/mm3 (0.00-0.031); Immature Granulocyte Percent A 0.3 % (0-0.5); Lymphocytes Absolute Auto 2.85 K/mm3 (0.9-3.2); Lymphocytes Percent Auto 19.5 % (18.3-44.2); Mean Corpuscular HGB Conc 31.9 g/dl (32-36); Mean Corpuscular Hemoglobin 29.6 pg (26-34); Mean Corpuscular Volume 92.9 fl (80-100); Mean Platelet Volume 9.4 fl (7.4-10.4); Monocytes Absolute Auto 1.4 K/mm3 (0.1-0.6); Monocytes Percent Auto 9.4 % (2.6-8.5); Neutrophils Absolute Auto 10.3 K/mm3 (1.3-6.7); Neutrophils Percent Auto 70.4 % (45.5-73.1); Platelet Count Result 322 k/mm3 (150-375); Red Blood Count 4.25 M/mm3 (4.2-5.4); Red Cell Distribution Width 13.2 % (11.5-14.5); White Blood Count 14.6 K/mm3 (4.5-10.0)
[2023-01-19] MEDS: LACTATED RINGERS 1,000 ML 75 ML IV CONT (20:33)
[2023-01-20] MEDS: metroNIDAZOLE 500 MG/ISO 100ML 500 MG/100 ML BAG 100 MG IVPB ×3 (05:51→21:02)
[2023-01-20 06:05] VITALS: BP 122/53; PULSE 71; RESP 16; TEMP 36.2; O2SAT 98
--- NOTE | 2023-01-20 06:23 | PC.NURSE ---
Addendum entered by Joanne Mendoza RN 01/20/23 06:25: error wrong pt Original Note: pulsed IV fluids pt O2 sat 82%, place on 2 L NC, called MD Cheung.
[2023-01-20 07:41] LABS: Anion Gap 9 mmol/L (8-16); Blood Urea Nitrogen 11 mg/dL (7-17); Calcium 9.3 mg/dL (8.4-10.2); Carbon Dioxide 26 mmol/L (22-30); Chloride 105 mmol/L (98-107); Estimated CRCL calculation 49 ml/min; Estimated Glomerular Filt Rate > 60; Glucose 112 mg/dL (65-110); Sodium 140 mmol/L (137-145)
[2023-01-20] MEDS: OMEGA 3 POLYUNSAT FATTY ACIDS 1 GM CAP PO (08:06)
[2023-01-20] MEDS: ACETAMINOPHEN 325 MG TABLET 650 MG PO ×3 (08:06→21:46)
[2023-01-20] MEDS: lisinopriL 10 MG TABLET PO (08:06)
[2023-01-20] MEDS: MULTIVITAMINS THERAPEUTIC TAB (*BKC) 1 TABLET PO (08:06)
[2023-01-20] MEDS: ENOXAPARIN 40 MG/0.4 ML SYRINGE SUB-Q (08:06)
[2023-01-20] MEDS: PANTOPRAZOLE SODIUM IV 40 MG VIAL IV PUSH (08:06)
--- NOTE | 2023-01-20 10:45 | PM.PNGS ---
Progress Note: A&P Assessment and Plan (1) Diverticulitis of colon with perforation: Code(s): K57.20 - Diverticulitis of large intestine with perforation and abscess without bleeding Status: Acute Assessment and Plan: Clinical abdominal exam is better today but she is still mildly tender. No fever and no tachycardia. She had a small bowel movement which was loose but nonbloody. Electrolytes are normal this morning but white blood cell count is pending. Into white blood cell count normalizes we may go ahead start some clear liquids later today. Continue IV antibiotics and supportive management. Subjective Subjective Date/Time Seen: 01/20/23 10:45 Interval history: Patient states that her lower abdominal pain is better today. Still present however. Passing flatus having some gas pains and had a small loose bowel movement today which was nonbloody. No nausea or vomiting. No fever. Electrolytes are normal however a CBC and white blood cell count has not been done yet today. It is pending. Exam Const: General: comfortable and no acute distress Neck: Neck: supple Resp: Effort & Inspection: normal respiratory effort Auscultation: clear to auscultation bilaterally Cardio: Rate: regular rate Rhythm: regular rhythm GI: Other: Abdomen is soft and minimally distended. Still has some mild tenderness in the suprapubic region of the abdomen and less so in the left lower quadrant. No peritoneal signs are noted. Guarding noted. Neuro: Speech: normal speech Sensory Exam: normal sensation Psych: Mental Status: mental status grossly normal Affect: normal affect Objective Data Vital Signs Vital Signs: Vital Signs - 24 hr 01/19/23 12:10 01/19/23 13:02 01/19/23 14:01 Temperature Pulse Rate 78 82 87 Respiratory Rate 11 L 16 20 Blood Pressure 120/80 121/83 127/73 Pulse Oximetry 99 99 99 Oxygen Delivery 01/19/23 14:15 01/19/23 14:46 01/19/23 15:01 Temperature Pulse Rate 83 80 82 Respiratory Rate 16 16 16 Blood Pressure 149/72 H 132/69 136/65 Pulse Oximetry 100 99 96 Oxygen Delivery 01/19/23 15:47 01/19/23 16:00 01/19/23 20:00 Temperature Pulse Rate 85 Respiratory Rate 16 Blood Pressure 121/61 Pulse Oximetry 99 99 Oxygen Delivery Room Air Room Air 01/19/23 20:20 01/20/23 06:05 01/20/23 07:42 Temperature 36.4 C 36.2 C L Pulse Rate 73 71 Respiratory Rate 16 16 Blood Pressure 108/54 L 122/53 L Pulse Oximetry 95 98 Oxygen Delivery Room Air Intake/Output Intake/Output: Intake & Output 01/17/23 01/18/23 01/19/23 01/20/23 23:59 23:59 23:59 23:59 Intake Total 200 100 Balance 200 100 Meds/Results Medications: Active Medications Generic Name Dose Route Start Last Admin Trade Name Freq PRN Reason Stop Dose Admin Acetaminophen 650 mg 01/19/23 15:15 01/20/23 08:06 Acetaminophen 325 Mg Tablet PO 650 mg Q6H PRN Administration Mild Pain (1-5) Or Fever Enoxaparin Sodium 40 mg 01/20/23 09:00 01/20/23 08:06 Enoxaparin 40 Mg/0.4 Ml Syringe SUB-Q 40 mg DAILY TYE Administration Fentanyl Citrate 25 mcg 01/19/23 15:15 Fentanyl Citrate Inj (*Crx) 100 Mcg/2 Ml Vial IV PUSH Q4H PRN Pain Rated 7-10 Fish Oil 1 gm 01/20/23 09:00 01/20/23 08:06 [place] 3 Polyunsat Fatty Acids 1 Gm Cap PO 1 gm DAILY TYE Administration Levofloxacin/Dextrose 750 mg in 150 mls @ 100 mls/hr 01/19/23 15:10 Levaquin 750 Mg/D5w 150 Ml IVPB Q24H TYE Metronidazole 500 mg in 100 mls @ 100 mls/hr 01/19/23 22:00 01/20/23 05:51 Flagyl 500 Mg/Iso Soln 100 Ml IVPB 100 mls/hr Q8H TYE Administration Dextrose/Lactated Ringer's 1,000 mls @ 125 mls/hr 01/19/23 15:10 01/20/23 08:07 Dextrose 5%/Lactated Ringers IV CONT Not Given .Q8H TYE Lactated Ringer's 1,000 mls @ 75 mls/hr 01/19/23 20:15 01/19/23 20:33 Lr - Lactated Ringers Iv IV CONT 75 mls/hr .[id number] TYE Administration Lisino
[2023-01-20 11:04] LABS: Basophils Percent Auto 0.2 % (0.2-1.2); Eosinophils Percent Auto 0.3 % (0-4.4); Hemoglobin 12.2 g/dL (12.0-15.0); Immature Granulocyte Absolute 0.03 K/mm3 (0.00-0.031); Immature Granulocyte Percent A 0.3 % (0-0.5); Mean Corpuscular HGB Conc 31.3 g/dl (32-36); Mean Corpuscular Hemoglobin 29.7 pg (26-34); Mean Corpuscular Volume 94.9 fl (80-100); Mean Platelet Volume 9.9 fl (7.4-10.4); Monocytes Absolute Auto 1.3 K/mm3 (0.1-0.6); Monocytes Percent Auto 10.6 % (2.6-8.5); Neutrophils Absolute Auto 7.9 K/mm3 (1.3-6.7); Neutrophils Percent Auto 66.6 % (45.5-73.1); Platelet Count Result 339 k/mm3 (150-375); Red Blood Count 4.11 M/mm3 (4.2-5.4); Red Cell Distribution Width 13.4 % (11.5-14.5); White Blood Count 11.8 K/mm3 (4.5-10.0)
--- NOTE | 2023-01-20 12:36 | PM.IMPN ---
Progress Note: A&P Assessment and Plan (1) Diverticulitis of colon with perforation: Code(s): K57.20 - Diverticulitis of large intestine with perforation and abscess without bleeding Status: Acute Assessment and Plan: CT shows acute sigmoid diverticulitis with micro perforation with no drainable abscess Continue Levaquin Flagyl, NPO today, clear liquids tomorrow Improving (2) HTN (hypertension), benign: Code(s): I10 - Essential (primary) hypertension Status: Acute Assessment and Plan: Blood pressures reviewed 01/20 (3) Leukocytosis: Qualifiers: Leukocytosis type: unspecified Qualified Code(s): D72.829 - Elevated white blood cell count, unspecified Code(s): D72.829 - Elevated white blood cell count, unspecified Status: Acute Assessment and Plan: Improved with antibiotics, see above (4) Hx of renal cell carcinoma: Onset Date: ~06/2018 Code(s): Z85.528 - Personal history of other malignant neoplasm of kidney Status: Acute Assessment and Plan: Known hx, no treatment Plan DVT prophylaxis with Lovenox GI prophylaxis not indicated Code status full code Subjective Date/time seen: 01/20/23 12:36 Interval history: 82-year-old female with history of hyperlipidemia, diverticulitis is presenting with abdominal pain and constipation and currently being treated for acute diverticulitis. No overnight events noted. No chest pain or shortness of breath. No fevers or chills. She is still complaining of intermittent diarrhea with constipation as well as abdominal pain. Review of Systems Review of Systems: 12 point review of systems was assessed and was negative except as noted in the HPI Exam Narrative: General: No acute distress, alert and oriented per baseline HEENT: Atraumatic, normocephalic, mucous membranes moist CV: Regular rate and rhythm, S1, S2 Lungs: Clear to auscultation bilaterally, no rales or crackles noted, no wheezes, good air entry Abdomen: Soft, nontender, nondistended Extremities: Normal to inspection Skin: No rashes noted, no lesions or wounds seen Psych: Euthymic, normal affect Objective Data Vital Signs Vital Signs: Vital Signs - 24 hr 01/19/23 13:02 01/19/23 14:01 01/19/23 14:15 Temperature Pulse Rate 82 87 83 Respiratory Rate 16 20 16 Blood Pressure 121/83 127/73 149/72 H Pulse Oximetry 99 99 100 Oxygen Delivery 01/19/23 14:46 01/19/23 15:01 01/19/23 15:47 Temperature Pulse Rate 80 82 85 Respiratory Rate 16 16 16 Blood Pressure 132/69 136/65 121/61 Pulse Oximetry 99 96 99 Oxygen Delivery 01/19/23 16:00 01/19/23 20:00 01/19/23 20:20 Temperature 97.6 F Pulse Rate 73 Respiratory Rate 16 Blood Pressure 108/54 L Pulse Oximetry 99 95 Oxygen Delivery Room Air Room Air 01/20/23 06:05 01/20/23 07:42 Temperature 97.2 F L Pulse Rate 71 Respiratory Rate 16 Blood Pressure 122/53 L Pulse Oximetry 98 Oxygen Delivery Room Air Intake/Output Intake/Output: Intake & Output 01/17/23 01/18/23 01/19/23 01/20/23 23:59 23:59 23:59 23:59 Intake Total 200 100 Balance 200 100 Meds/Results Medications: Active Medications Generic Name Dose Route Start Last Admin Trade Name Caioq PRN Reason Stop Dose Admin Acetaminophen 650 mg 01/19/23 15:15 01/20/23 08:06 Acetaminophen 325 Mg Tablet PO 650 mg Q6H PRN Administration Mild Pain (1-5) Or Fever Enoxaparin Sodium 40 mg 01/20/23 09:00 01/20/23 08:06 Enoxaparin 40 Mg/0.4 Ml Syringe SUB-Q 40 mg DAILY TYE Administration Fentanyl Citrate 25 mcg 01/19/23 15:15 Fentanyl Citrate Inj (*Crx) 100 Mcg/2 Ml Vial IV PUSH Q4H PRN Pain Rated 7-10 Fish Oil 1 gm 01/20/23 09:00 01/20/23 08:06 [place] 3 Polyunsat Fatty Acids 1 Gm Cap PO 1 gm DAILY TYE Administration Levofloxacin/Dextrose 750 mg in 150 mls @ 100 mls/hr
[2023-01-20 14:00] VITALS: BP 128/59; PULSE 76; RESP 14; TEMP 36.7; O2SAT 99
[2023-01-20] MEDS: DEXTROSE 5%/LACTATED RINGERS 1,000 ML 125 ML IV CONT (15:23)
[2023-01-20 20:00] VITALS: O2SAT 99
[2023-01-20 21:03] VITALS: BP 133/65; PULSE 81; RESP 16; TEMP 37.8; O2SAT 98
--- NOTE | 2023-01-20 21:09 | PC.NURSE ---
pt request medication for nausea informed [employer]IC[employer] Lex Horton to place orders for Zofran
[2023-01-20 21:46] VITALS: TEMP 37.8
[2023-01-20] MEDS: ONDANSETRON INJ 4 MG/2 ML VIAL IV PUSH (21:46)
[2023-01-20 22:46] VITALS: TEMP 37.4
[2023-01-21] MEDS: ACETAMINOPHEN 325 MG TABLET 650 MG PO
[2023-01-21] MEDS: LACTATED RINGERS 1,000 ML 75 ML IV CONT (04:42)
[2023-01-21] MEDS: metroNIDAZOLE 500 MG/ISO 100ML 500 MG/100 ML BAG 100 MG IVPB ×3 (05:41→21:30)
--- NOTE | 2023-01-21 05:47 | PC.NURSE ---
gas x ordered for patients c/o gas pains, per MD Hart
[2023-01-21 06:00] VITALS: BP 143/66; PULSE 81; RESP 18; TEMP 36.9; O2SAT 97
--- NOTE | 2023-01-21 06:13 | PC.NURSE ---
charting error no tylenol given at 0000
[2023-01-21] MEDS: SIMETHICONE 80 MG TAB.CHEW PO ×3 (06:32→17:13)
[2023-01-21 07:15] LABS: Hemoglobin 11.8 g/dL (12.0-15.0); Mean Corpuscular HGB Conc 31.1 g/dl (32-36); Mean Corpuscular Hemoglobin 29.4 pg (26-34); Mean Corpuscular Volume 94.8 fl (80-100); Mean Platelet Volume 9.8 fl (7.4-10.4); Platelet Count Result 315 k/mm3 (150-375); Red Blood Count 4.01 M/mm3 (4.2-5.4); Red Cell Distribution Width 13.2 % (11.5-14.5); White Blood Count 12.8 K/mm3 (4.5-10.0)
[2023-01-21 07:28] LABS: Potassium 3.8 mmol/L (3.4-5.0)
[2023-01-21 07:29] LABS: Anion Gap 11 mmol/L (8-16); Blood Urea Nitrogen 11 mg/dL (7-17); Carbon Dioxide 24 mmol/L (22-30); Chloride 104 mmol/L (98-107); Estimated CRCL calculation 56 ml/min; Estimated Glomerular Filt Rate > 60; Glucose 110 mg/dL (65-110); Sodium 139 mmol/L (137-145)
[2023-01-21 08:29] VITALS: O2SAT 94
[2023-01-21] MEDS: PANTOPRAZOLE SODIUM IV 40 MG VIAL IV PUSH (09:37)
[2023-01-21] MEDS: lisinopriL 10 MG TABLET PO (09:37)
[2023-01-21] MEDS: ENOXAPARIN 40 MG/0.4 ML SYRINGE SUB-Q (09:37)
[2023-01-21] MEDS: OMEGA 3 POLYUNSAT FATTY ACIDS 1 GM CAP PO (09:37)
[2023-01-21] MEDS: MULTIVITAMINS THERAPEUTIC TAB (*BKC) 1 TABLET PO (09:37)
--- NOTE | 2023-01-21 10:47 | PM.PNGS ---
Progress Note: A&P Assessment and Plan (1) Diverticulitis of colon with perforation: Code(s): K57.20 - Diverticulitis of large intestine with perforation and abscess without bleeding Status: Acute Assessment and Plan: CT evidence of acute sigmoid diverticulitis with microperforation, no drainable abscess. Overall, her abdominal pain continues to improve. She still has lower abdominal tenderness on exam. WBC count up slightly to 12.8 today and had a low-grade fever last night. Will continue IV Levaquin and Flagyl Keep her on clear liquids today Repeat labs again tomorrow morning. If leukocytosis worsens, she is febrile, or her abdominal exam worsens, then we could consider repeating a CT scan of the abdomen and pelvis to re-evaluate. Plan I have discussed the patient's case and plan of care with Dr. East. Subjective Subjective Date/Time Seen: 01/21/23 10:47 Patient reports: no new complaints, feels better, pain is less, tolerating liquids well, flatus, bowel movement and fever (Temp max 100.1F last night) Interval history: This is an 82-year-old female who was admitted for acute diverticulitis with microperforation. Chart reviewed. She is seen this morning. Reports overall her abdominal pain has improved since admission. She is still having some cramping lower abdominal pain that she attributes to gas pains. This was relieved with simethicone. She is passing gas and has had a soft bowel movement this morning. No nausea or vomiting. Still feels bloated, but better. White blood cell count yesterday was 11.8 and up to 12.8 today. This morning was her first tray of clear liquids and she tolerated this well. Reportedly drinking plenty of fluids and finished her and try or tray. Review of Systems Review of Systems: All systems reviewed & are unremarkable except as noted in HPI and below Exam Const: General: comfortable and no acute distress Orientation/consciousness: patient oriented x3 GI: Inspection: other (mildly distended) GI Palp: Yes Soft to palpation, Yes Tenderness to palpation present (GI) (across her lower abdomen more focally in suprapubic area and LLQ) and Yes Guarding due to palpation present (GI) (suprapubic and LLQ) Auscultation: normal bowel sounds Objective Data Vital Signs Vital Signs: Vital Signs - 24 hr 01/20/23 14:00 01/20/23 21:03 01/20/23 20:00 Temperature 98.1 F 100.1 F H Pulse Rate 76 81 Respiratory Rate 14 16 Blood Pressure 128/59 L 133/65 Pulse Oximetry 99 98 99 Oxygen Delivery Room Air 01/20/23 21:46 01/20/23 22:46 01/21/23 06:00 Temperature 100.1 F H 99.3 F 98.4 F Pulse Rate 81 Respiratory Rate 18 Blood Pressure 143/66 H Pulse Oximetry 97 Oxygen Delivery 01/21/23 08:29 Temperature Pulse Rate Respiratory Rate Blood Pressure Pulse Oximetry 94 Oxygen Delivery Room Air Intake/Output Intake/Output: Intake & Output 01/18/23 01/19/23 01/20/23 01/21/23 23:59 23:59 23:59 23:59 Intake Total 200 1520 1540 Balance 200 1520 1540 Meds/Results Medications: Active Medications Generic Name Dose Route Start Last Admin Trade Name Freq PRN Reason Stop Dose Admin Acetaminophen 650 mg 01/19/23 15:15 01/21/23 00:00 Acetaminophen 325 Mg Tablet PO 650 mg Q6H PRN Administration Mild Pain (1-5) Or Fever Enoxaparin Sodium 40 mg 01/20/23 09:00 01/21/23 09:37 Enoxaparin 40 Mg/0.4 Ml Syringe SUB-Q 40 mg DAILY TYE Administration Fentanyl Citrate 25 mcg 01/19/23 15:15 Fentanyl Citrate Inj (*Crx) 100 Mcg/2 Ml Vial IV PUSH Q4H PRN Pain Rated 7-10 Fish Oil 1 gm 01/20/23 09:00 01/21/23 09:37 [place] 3 Polyunsat Fatty Acids 1 Gm Cap PO 1 gm DAILY TYE Administration Metronidazole 500 mg in 100 mls @ 100 mls/hr 01/19/23 22:00 01/21/23 06:41 Flagyl 500 Mg/Iso Soln 100 Ml IVPB Infused Q8H TYE Infusion Dextrose/Lactated Ringer's 1,000 mls @ 125 mls/hr 01/19/23 15:10
--- NOTE | 2023-01-21 11:22 | PM.IMPN ---
Progress Note: A&P Assessment and Plan (1) Diverticulitis of colon with perforation: Code(s): K57.20 - Diverticulitis of large intestine with perforation and abscess without bleeding Status: Acute Assessment and Plan: CT shows acute sigmoid diverticulitis with micro perforation with no drainable abscess Continue Levaquin Flagyl, FLD, ADAT Improving (2) HTN (hypertension), benign: Code(s): I10 - Essential (primary) hypertension Status: Acute Assessment and Plan: Blood pressures reviewed 01/21 (3) Leukocytosis: Qualifiers: Leukocytosis type: unspecified Qualified Code(s): D72.829 - Elevated white blood cell count, unspecified Code(s): D72.829 - Elevated white blood cell count, unspecified Status: Acute Assessment and Plan: Improved with antibiotics, see above (4) Hx of renal cell carcinoma: Onset Date: ~06/2018 Code(s): Z85.528 - Personal history of other malignant neoplasm of kidney Status: Acute Assessment and Plan: Known hx, no treatment Plan DVT prophylaxis with Lovenox GI prophylaxis not indicated Code status full code Subjective Date/time seen: 01/21/23 11:22 Interval history: 82-year-old female with history of hyperlipidemia, diverticulitis is presenting with abdominal pain and constipation and currently being treated for acute diverticulitis. No overnight events noted. No chest pain or shortness of breath. No fevers or chills. She is still complaining of intermittent diarrhea with constipation as well as abdominal pain. 01/21: much improved today, still with some residual abdominal discomfort and minimal diarrhea Review of Systems Review of Systems: 12 point review of systems was assessed and was negative except as noted in the HPI Exam Narrative: General: No acute distress, alert and oriented per baseline HEENT: Atraumatic, normocephalic, mucous membranes moist CV: Regular rate and rhythm, S1, S2 Lungs: Clear to auscultation bilaterally, no rales or crackles noted, no wheezes, good air entry Abdomen: Soft, mild TTP Extremities: Normal to inspection Skin: No rashes noted, no lesions or wounds seen Psych: Euthymic, normal affect Objective Data Vital Signs Vital Signs: Vital Signs - 24 hr 01/20/23 14:00 01/20/23 21:03 01/20/23 20:00 Temperature 98.1 F 100.1 F H Pulse Rate 76 81 Respiratory Rate 14 16 Blood Pressure 128/59 L 133/65 Pulse Oximetry 99 98 99 Oxygen Delivery Room Air 01/20/23 21:46 01/20/23 22:46 01/21/23 06:00 Temperature 100.1 F H 99.3 F 98.4 F Pulse Rate 81 Respiratory Rate 18 Blood Pressure 143/66 H Pulse Oximetry 97 Oxygen Delivery 01/21/23 08:29 01/21/23 08:00 Temperature Pulse Rate Respiratory Rate Blood Pressure Pulse Oximetry 94 Oxygen Delivery Room Air Room Air Intake/Output Intake/Output: Intake & Output 01/18/23 01/19/23 01/20/23 01/21/23 23:59 23:59 23:59 23:59 Intake Total 200 1520 1540 Balance 200 1520 1540 Meds/Results Medications: Active Medications Generic Name Dose Route Start Last Admin Trade Name Freq PRN Reason Stop Dose Admin Acetaminophen 650 mg 01/19/23 15:15 01/21/23 00:00 Acetaminophen 325 Mg Tablet PO 650 mg Q6H PRN Administration Mild Pain (1-5) Or Fever Enoxaparin Sodium 40 mg 01/20/23 09:00 01/21/23 09:37 Enoxaparin 40 Mg/0.4 Ml Syringe SUB-Q 40 mg DAILY TYE Administration Fentanyl Citrate 25 mcg 01/19/23 15:15 Fentanyl Citrate Inj (*Crx) 100 Mcg/2 Ml Vial IV PUSH Q4H PRN Pain Rated 7-10 Fish Oil 1 gm 01/20/23 09:00 01/21/23 09:37 [place] 3 Polyunsat Fatty Acids 1 Gm Cap PO 1 gm DAILY TYE Administration Metronidazole 500 mg in 100 mls @ 100 mls/hr 01/19/23 22:00 01/21/23 06:41 Flagyl 500 Mg/Iso Soln 100 Ml IVPB Infused Q8H TYE Infusion Dextrose/Lactated Ringer's 1,000 mls @ 8
[2023-01-21 14:00] VITALS: BP 140/58; PULSE 81; RESP 16; TEMP 36.7; O2SAT 98
[2023-01-21] MEDS: fentaNYL CITRATE INJ (*CRX) 100 MCG/2 ML VIAL 25 MCG IV PUSH (14:05)
[2023-01-21] MEDS: levoFLOXacin 750 MG/D5W 150 ML 750 MG/150 ML BAG 100 MG IVPB (14:06)
[2023-01-21] MEDS: ONDANSETRON INJ 4 MG/2 ML VIAL IV PUSH (17:13)
[2023-01-21] MEDS: DEXTROSE 5%/LACTATED RINGERS 1,000 ML 125 ML IV CONT (17:16)
[2023-01-21 22:25] VITALS: BP 119/44; PULSE 81; RESP 16; TEMP 36.4; O2SAT 98
[2023-01-22] MEDS: metroNIDAZOLE 500 MG/ISO 100ML 500 MG/100 ML BAG 100 MG IVPB (05:01)
[2023-01-22 06:00] VITALS: BP 129/51; PULSE 81; RESP 18; TEMP 36.2; O2SAT 96
[2023-01-22 06:36] LABS: Hematocrit 37.9 % (37.0-47.0); Mean Corpuscular HGB Conc 31.7 g/dl (32-36); Mean Corpuscular Hemoglobin 29.9 pg (26-34); Mean Corpuscular Volume 94.5 fl (80-100); Mean Platelet Volume 9.6 fl (7.4-10.4); Platelet Count Result 338 k/mm3 (150-375); Red Blood Count 4.01 M/mm3 (4.2-5.4); Red Cell Distribution Width 13.2 % (11.5-14.5); White Blood Count 12.5 K/mm3 (4.5-10.0)
[2023-01-22 06:54] LABS: Anion Gap 10 mmol/L (8-16); Blood Urea Nitrogen 8 mg/dL (7-17); Calcium 8.9 mg/dL (8.4-10.2); Carbon Dioxide 25 mmol/L (22-30); Chloride 105 mmol/L (98-107); Estimated CRCL calculation 56 ml/min; Estimated Glomerular Filt Rate > 60; Glucose 117 mg/dL (65-110); Sodium 140 mmol/L (137-145)
[2023-01-22] MEDS: lisinopriL 10 MG TABLET PO (08:43)
[2023-01-22] MEDS: ENOXAPARIN 40 MG/0.4 ML SYRINGE SUB-Q (08:43)
[2023-01-22] MEDS: MULTIVITAMINS THERAPEUTIC TAB (*BKC) 1 TABLET PO (08:43)
[2023-01-22] MEDS: PANTOPRAZOLE SODIUM IV 40 MG VIAL IV PUSH (08:43)
[2023-01-22] MEDS: OMEGA 3 POLYUNSAT FATTY ACIDS 1 GM CAP PO (08:43)
[2023-01-22] MEDS: SIMETHICONE 80 MG TAB.CHEW PO ×3 (08:43→18:07)
--- NOTE | 2023-01-22 10:37 | PM.IMPN ---
Progress Note: A&P Assessment and Plan (1) Diverticulitis of colon with perforation: Code(s): K57.20 - Diverticulitis of large intestine with perforation and abscess without bleeding Status: Acute Assessment and Plan: CT shows acute sigmoid diverticulitis with micro perforation with no drainable abscess Continue Levaquin Flagyl, FLD, ADAT Fevers resolved Improving, d/c soon once tolerating po, check imaging if patient worsens (2) HTN (hypertension), benign: Code(s): I10 - Essential (primary) hypertension Status: Acute Assessment and Plan: Blood pressures reviewed 01/22 (3) Leukocytosis: Qualifiers: Leukocytosis type: unspecified Qualified Code(s): D72.829 - Elevated white blood cell count, unspecified Code(s): D72.829 - Elevated white blood cell count, unspecified Status: Acute Assessment and Plan: Improved with antibiotics, see above (4) Hx of renal cell carcinoma: Onset Date: ~06/2018 Code(s): Z85.528 - Personal history of other malignant neoplasm of kidney Status: Acute Assessment and Plan: Known hx, no treatment Plan DVT prophylaxis with Lovenox GI prophylaxis not indicated Code status full code Subjective Date/time seen: 01/22/23 10:37 Interval history: 82-year-old female with history of hyperlipidemia, diverticulitis is presenting with abdominal pain and constipation and currently being treated for acute diverticulitis. No overnight events noted. No chest pain or shortness of breath. No fevers or chills. Much better, advancing diet, tolerating po intake. Review of Systems Review of Systems: 12 point review of systems was assessed and was negative except as noted in the HPI Exam Narrative: General: No acute distress, alert and oriented per baseline HEENT: Atraumatic, normocephalic, mucous membranes moist CV: Regular rate and rhythm, S1, S2 Lungs: Clear to auscultation bilaterally, no rales or crackles noted, no wheezes, good air entry Abdomen: Soft, mild TTP Extremities: Normal to inspection Skin: No rashes noted, no lesions or wounds seen Psych: Euthymic, normal affect Objective Data Vital Signs Vital Signs: Vital Signs - 24 hr 01/21/23 14:00 01/21/23 20:00 01/21/23 22:25 Temperature 98.1 F 97.5 F L Pulse Rate 81 81 Respiratory Rate 16 16 Blood Pressure 140/58 L 119/44 L Pulse Oximetry 98 98 Oxygen Delivery Room Air 01/22/23 06:00 Temperature 97.2 F L Pulse Rate 81 Respiratory Rate 18 Blood Pressure 129/51 L Pulse Oximetry 96 Oxygen Delivery Intake/Output Intake/Output: Intake & Output 01/19/23 01/20/23 01/21/23 01/22/23 23:59 23:59 23:59 23:59 Intake Total 200 2520 2370 220 Balance 200 2520 2370 220 Meds/Results Medications: Active Medications Generic Name Dose Route Start Last Admin Trade Name Freq PRN Reason Stop Dose Admin Acetaminophen 650 mg 01/19/23 15:15 01/21/23 00:00 Acetaminophen 325 Mg Tablet PO 650 mg Q6H PRN Administration Mild Pain (1-5) Or Fever Enoxaparin Sodium 40 mg 01/20/23 09:00 01/22/23 08:43 Enoxaparin 40 Mg/0.4 Ml Syringe SUB-Q 40 mg DAILY TYE Administration Fentanyl Citrate 25 mcg 01/19/23 15:15 01/21/23 14:05 Fentanyl Citrate Inj (*Crx) 100 Mcg/2 Ml Vial IV PUSH 25 mcg Q4H PRN Administration Pain Rated 7-10 Fish Oil 1 gm 01/20/23 09:00 01/22/23 08:43 [place] 3 Polyunsat Fatty Acids 1 Gm Cap PO 1 gm DAILY TYE Administration Metronidazole 500 mg in 100 mls @ 100 mls/hr 01/19/23 22:00 01/22/23 05:01 Flagyl 500 Mg/Iso Soln 100 Ml IVPB 100 mls/hr Q8H TYE Administration Levofloxacin/Dextrose 750 mg in 150 mls @ 100 mls/hr 01/21/23 15:00 01/21/23 15:40 Levaquin 750 Mg/D5w 150 Ml IVPB Infused Q48HR TYE Infusion Ibuprofen 800 mg in 200 mls @ 400 mls/hr 01/22/23 09:29 [place] 800 Mg/200 Ml IVPB Q6H PRN P
--- NOTE | 2023-01-22 11:14 | PM.PNGS ---
Progress Note: A&P Assessment and Plan (1) Diverticulitis of colon with perforation: Code(s): K57.20 - Diverticulitis of large intestine with perforation and abscess without bleeding Status: Acute Assessment and Plan: CT evidence of acute sigmoid diverticulitis with microperforation, no drainable abscess. Her abdominal pain has improved but she is still very tender in the suprapubic area. WBC count still at 12.5 today. We will get a repeat CT scan of the abdomen and pelvis with IV contrast to re-evaluate Continue IV Levaquin and Flagyl Continue clear liquids, may try advancing diet depending on CT results Plan I have discussed the patient's case and plan of care with Dr. East. Subjective Subjective Date/Time Seen: 01/22/23 11:14 Patient reports: no new complaints, pain is less, tolerating liquids well, flatus, bowel movement and afebrile Interval history: Patient reports her abdominal pain is better today. She is tolerating clear liquids. WBC still 12.5 today. No acute events overnight. Exam Const: General: comfortable and no acute distress Orientation/consciousness: patient oriented x3 GI: Inspection: non-distended GI Palp: Yes Soft to palpation, Yes Tenderness to palpation present (GI) (still with suprapubic tenderness and guarding in this area) and No Rebound tenderness present Auscultation: normal bowel sounds Objective Data Vital Signs Vital Signs: Vital Signs - 24 hr 01/21/23 14:00 01/21/23 20:00 01/21/23 22:25 Temperature 98.1 F 97.5 F L Pulse Rate 81 81 Respiratory Rate 16 16 Blood Pressure 140/58 L 119/44 L Pulse Oximetry 98 98 Oxygen Delivery Room Air 01/22/23 06:00 01/22/23 08:00 Temperature 97.2 F L Pulse Rate 81 Respiratory Rate 18 Blood Pressure 129/51 L Pulse Oximetry 96 Oxygen Delivery Room Air Intake/Output Intake/Output: Intake & Output 01/19/23 01/20/23 01/21/23 01/22/23 23:59 23:59 23:59 23:59 Intake Total 200 2520 2370 220 Balance 200 2520 2370 220 Meds/Results Medications: Active Medications Generic Name Dose Route Start Last Admin Trade Name Freq PRN Reason Stop Dose Admin Acetaminophen 650 mg 01/19/23 15:15 01/21/23 00:00 Acetaminophen 325 Mg Tablet PO 650 mg Q6H PRN Administration Mild Pain (1-5) Or Fever Enoxaparin Sodium 40 mg 01/20/23 09:00 01/22/23 08:43 Enoxaparin 40 Mg/0.4 Ml Syringe SUB-Q 40 mg DAILY TYE Administration Fentanyl Citrate 25 mcg 01/19/23 15:15 01/21/23 14:05 Fentanyl Citrate Inj (*Crx) 100 Mcg/2 Ml Vial IV PUSH 25 mcg Q4H PRN Administration Pain Rated 7-10 Fish Oil 1 gm 01/20/23 09:00 01/22/23 08:43 [place] 3 Polyunsat Fatty Acids 1 Gm Cap PO 1 gm DAILY TYE Administration Metronidazole 500 mg in 100 mls @ 100 mls/hr 01/19/23 22:00 01/22/23 05:01 Flagyl 500 Mg/Iso Soln 100 Ml IVPB 100 mls/hr Q8H TYE Administration Levofloxacin/Dextrose 750 mg in 150 mls @ 100 mls/hr 01/21/23 15:00 01/21/23 15:40 Levaquin 750 Mg/D5w 150 Ml IVPB Infused Q48HR TYE Infusion Ibuprofen 800 mg in 200 mls @ 400 mls/hr 01/22/23 09:29 Caldolor 800 Mg/200 Ml IVPB Q6H PRN Pain Rated 4-6 Lisinopril 10 mg 01/20/23 09:00 01/22/23 08:43 Lisinopril 10 Mg Tablet PO 10 mg DAILY TYE Administration Multivitamins Therapeutic 1 tablet 01/20/23 09:00 01/22/23 08:43 Multivitamins Therapeutic Tab (*Bkc) PO 1 tablet DAILY TYE Administration Ondansetron HCl 4 mg 01/20/23 21:10 01/21/23 17:13 Ondansetron Inj 4 Mg/2 Ml Vial IV PUSH 4 mg Q4H PRN Administration Nausea And Vomiting Pantoprazole Sodium 40 mg 01/20/23 09:00 01/22/23 08:43 Pantoprazole Sodium Iv 40 Mg Vial IV PUSH 40 mg QAM TYE Administration Simethicone 80 mg 01/21/23 06:08 01/22/23 08:43 Simethicone 80 Mg Tab.Chew PO 80 mg QID PRN Administration Gas Discomfort Labs Labs: Laboratory Results - last 24 hr 01/22/23 0
[2023-01-22 14:00] VITALS: BP 126/58; PULSE 73; RESP 15; TEMP 36.1; O2SAT 100
[2023-01-22] MEDS: metroNIDAZOLE 500 MG TABLET PO ×2 (15:25→21:24)
[2023-01-22] MEDS: levoFLOXacin 750 MG TABLET PO (15:28)
[2023-01-22] MEDS: IBUPROFEN IV 800 MG/200 ML 800 MG/200 ML BAG 400 MG IVPB (18:11)
[2023-01-22 22:00] VITALS: BP 125/63; PULSE 73; RESP 16; TEMP 35.8; O2SAT 97
[2023-01-23] MEDS: SIMETHICONE 80 MG TAB.CHEW PO ×3 (05:22→15:36)
[2023-01-23] MEDS: metroNIDAZOLE 500 MG TABLET PO ×2 (05:22→15:36)
[2023-01-23 05:45] VITALS: BP 121/65; PULSE 74; RESP 18; TEMP 36; O2SAT 99
[2023-01-23 06:59] LABS: Hematocrit 36.7 % (37.0-47.0); Hemoglobin 11.7 g/dL (12.0-15.0); Mean Corpuscular HGB Conc 31.9 g/dl (32-36); Mean Corpuscular Hemoglobin 30.2 pg (26-34); Mean Corpuscular Volume 94.6 fl (80-100); Mean Platelet Volume 9.7 fl (7.4-10.4); Platelet Count Result 333 k/mm3 (150-375); Red Blood Count 3.88 M/mm3 (4.2-5.4); Red Cell Distribution Width 13.3 % (11.5-14.5); White Blood Count 9.7 K/mm3 (4.5-10.0)
[2023-01-23 07:12] LABS: Anion Gap 8 mmol/L (8-16); Blood Urea Nitrogen 7 mg/dL (7-17); Calcium 9.1 mg/dL (8.4-10.2); Carbon Dioxide 28 mmol/L (22-30); Chloride 104 mmol/L (98-107); Estimated CRCL calculation 49 ml/min; Estimated Glomerular Filt Rate > 60; Glucose 113 mg/dL (65-110); Potassium 3.7 mmol/L (3.4-5.0); Sodium 140 mmol/L (137-145)
[2023-01-23 08:48] VITALS: O2SAT 99
[2023-01-23] MEDS: lisinopriL 10 MG TABLET PO (09:44)
[2023-01-23] MEDS: OMEGA 3 POLYUNSAT FATTY ACIDS 1 GM CAP PO (09:44)
[2023-01-23] MEDS: MULTIVITAMINS THERAPEUTIC TAB (*BKC) 1 TABLET PO (09:44)
[2023-01-23] MEDS: levoFLOXacin 750 MG TABLET PO (09:44)
[2023-01-23] MEDS: PANTOPRAZOLE SODIUM IV 40 MG VIAL IV PUSH (09:46)
[2023-01-23] MEDS: ENOXAPARIN 40 MG/0.4 ML SYRINGE SUB-Q (09:46)
--- NOTE | 2023-01-23 09:51 | PM.PNGS ---
Progress Note: A&P Assessment and Plan (1) Diverticulitis of colon with perforation: Code(s): K57.20 - Diverticulitis of large intestine with perforation and abscess without bleeding Status: Acute Assessment and Plan: Patient is much improved clinically today. Her abdominal exam is pretty benign. White blood cell count has normalized. He was switched over to oral antibiotics yesterday and remained afebrile. We will go ahead and advance her to a low-fiber diet today. If she tolerates this she may discharge home later today from a surgery standpoint. She does not need to follow up with Dr. East in the office. I discussed with her the the option of an elective sigmoid colon resection but since she has not had recurrent hospitalizations or complicated episodes of diverticulitis she can also choose observation for now. At this point she has chosen continue observation and nonsurgical management and so she will not need to follow up to see me in the office. She did have a colonoscopy 3 years ago. If she wishes to get another colonoscopy rule out to this is a undiagnosed colon cancer then she can get a colonoscopy done and referred to her primary care physician. I think the chances of her having a colon cancer that is on diagnosis very low given she has no prior history of colon polyps and has no risk factors for colon cancer. Plus she had a colonoscopy 3 years ago. She can follow with her primary care physician as needed as well. Prescriptions for Levaquin and Flagyl have been sent to her pharmacy. She needs to complete a 10 day course of these oral antibiotics. Subjective Subjective Date/Time Seen: 01/23/23 09:51 Interval history: Patient is doing well today. Minimal to no suprapubic or left lower quadrant pain. She has been switched over to oral antibiotics and white blood cell count is normal today. CT scan yesterday revealed no interval development of a pelvic abscess with stable to slightly improved mild inflammatory changes around the sigmoid colon consistent with diverticulitis. No fevers or chills. She is tolerating a full liquid diet. Exam Const: General: comfortable and no acute distress Neck: Neck: supple Resp: Effort & Inspection: normal respiratory effort Auscultation: clear to auscultation bilaterally Cardio: Rate: regular rate Rhythm: regular rhythm GI: Other: Abdomen is soft and nondistended. Minimal tenderness to palpation in suprapubic region of the abdomen and left lower quadrant. No peritoneal signs no masses. Neuro: General: gait normal Speech: normal speech Sensory Exam: normal sensation Extrem: General: normal to inspection Psych: Mental Status: mental status grossly normal Affect: normal affect Objective Data Vital Signs Vital Signs: Vital Signs - 24 hr 01/22/23 14:00 01/22/23 22:00 01/23/23 05:45 Temperature 36.1 C L 35.8 C L 36.0 C L Pulse Rate 73 73 74 Respiratory Rate 15 16 18 Blood Pressure 126/58 L 125/63 121/65 Pulse Oximetry 100 97 99 Oxygen Delivery 01/23/23 08:48 Temperature Pulse Rate Respiratory Rate Blood Pressure Pulse Oximetry 99 Oxygen Delivery Room Air Intake/Output Intake/Output: Intake & Output 01/20/23 01/21/23 01/22/23 01/23/23 23:59 23:59 23:59 23:59 Intake Total 2520 2370 2140 572 Balance 2520 2370 2140 572 Meds/Results Medications: Active Medications Generic Name Dose Route Start Last Admin Trade Name Freq PRN Reason Stop Dose Admin Acetaminophen 650 mg 01/19/23 15:15 01/21/23 00:00 Acetaminophen 325 Mg Tablet PO 650 mg Q6H PRN Administration Mild Pain (1-5) Or Fever Enoxaparin Sodium 40 mg 01/20/23 09:00 01/23/23 09:46 Enoxaparin 40 Mg/0.4 Ml Syringe SUB-Q 40 mg DAILY TYE Administration Fentanyl Citrate 25 mcg 01/19/23 15:15 01/21/23 14:05 Fentanyl Citrate Inj (*Crx) 100 Mcg/2 Ml Vial IV PUSH 25 mcg Q4H PRN Administration Pain Rated 7-10 Fish Oil 1
--- NOTE | 2023-01-23 10:13 | PM.IMPN ---
Progress Note: A&P Assessment and Plan (1) Diverticulitis of colon with perforation: Code(s): K57.20 - Diverticulitis of large intestine with perforation and abscess without bleeding Status: Acute Assessment and Plan: Patient presents with abdominal pain. CT of the abdomen pelvis shows acute sigmoid diverticulitis with micro perforation and no drainable abscess. Patient was started on Levaquin and Flagyl. General surgery was consulted. She had low-grade fever a fevers have resolved. She had elevated white count which has normalized. She has been started on clear liquid diet and we are advancing as tolerated. She is passing stooling and gas. Repeat CT of the abdomen pelvis again shows acute sigmoid diverticulitis with microperforation. Appreciate general surgery input. Continue antibiotics. (2) HTN (hypertension), benign: Code(s): I10 - Essential (primary) hypertension Status: Acute Assessment and Plan: Patient's blood pressure was reviewed on 01/23 Blood pressure remains well controlled. Will continue to follow. (3) Leukocytosis: Qualifiers: Leukocytosis type: unspecified Qualified Code(s): D72.829 - Elevated white blood cell count, unspecified Code(s): D72.829 - Elevated white blood cell count, unspecified Status: Acute Assessment and Plan: As above. White count has normalized. (4) Hx of renal cell carcinoma: Onset Date: ~06/2018 Code(s): Z85.528 - Personal history of other malignant neoplasm of kidney Status: Acute Assessment and Plan: [facility] She states that it was a small lesion and was removed surgically. Plan DVT prophylaxis with Lovenox GI prophylaxis not indicated Code status full code Subjective Date/time seen: 01/23/23 10:13 Interval history: 82yofemale with history of hyperlipidemia, diverticulitis is presenting with abdominal pain and constipation and found to have acute diverticulitis with perforation. Assuming care. Chart reviewed. Patient is complaining of ?gas pains?. Abdomen is tender but improved overall. No fever or chills. No chest pain or shortness of breath. She is having small loose stools and occasional diarrhea Exam Narrative: AF 96.8 121/65 74 18 99% ra Gen - NARD Chest - CTA bilaterally, nml RR CV - RRR S1/S2 Abd -soft. Lower abdominal tenderness guarding. Positive bowel sounds Ext - No pedal edema Psych - Nml mood and affect Skin - Warm and dry Objective Data Vital Signs Vital Signs: Vital Signs - 24 hr 01/22/23 14:00 01/22/23 22:00 01/23/23 05:45 Temperature 97.0 F L 96.4 F L 96.8 F L Pulse Rate 73 73 74 Respiratory Rate 15 16 18 Blood Pressure 126/58 L 125/63 121/65 Pulse Oximetry 100 97 99 Oxygen Delivery 01/23/23 08:48 Temperature Pulse Rate Respiratory Rate Blood Pressure Pulse Oximetry 99 Oxygen Delivery Room Air Intake/Output Intake/Output: Intake & Output 01/20/23 01/21/23 01/22/23 01/23/23 23:59 23:59 23:59 23:59 Intake Total 2520 2370 2140 572 Balance 2520 2370 2140 572 Meds/Results Medications: Active Medications Generic Name Dose Route Start Last Admin Trade Name Freq PRN Reason Stop Dose Admin Acetaminophen 650 mg 01/19/23 15:15 01/21/23 00:00 Acetaminophen 325 Mg Tablet PO 650 mg Q6H PRN Administration Mild Pain (1-5) Or Fever Enoxaparin Sodium 40 mg 01/20/23 09:00 01/23/23 09:46 Enoxaparin 40 Mg/0.4 Ml Syringe SUB-Q 40 mg DAILY TYE Administration Fentanyl Citrate 25 mcg 01/19/23 15:15 01/21/23 14:05 Fentanyl Citrate Inj (*Crx) 100 Mcg/2 Ml Vial IV PUSH 25 mcg Q4H PRN Administration Pain Rated 7-10 Fish Oil 1 gm 01/20/23 09:00 01/23/23 09:44 [place] 3 Polyunsat Fatty Acids 1 Gm Cap PO 1 gm DAILY TYE Administration Ibuprofen 800 mg in 200 mls @ 400 mls/hr 01/22/23 09:29 01/03
[2023-01-23 14:00] VITALS: BP 149/62; PULSE 85; RESP 18; TEMP 37; O2SAT 100
--- NOTE | 2023-01-23 15:04 | PM.DS ---
DS: Admitting Diagnosis Discharge Date 01/23/23 Admitting Diagnosis Abdominal pain DS: Discharge Diagnosis Discharge Diagnosis (1) Diverticulitis of colon with perforation: Code(s): K57.20 - Diverticulitis of large intestine with perforation and abscess without bleeding Status: Acute (2) HTN (hypertension), benign: Code(s): I10 - Essential (primary) hypertension Status: Acute (3) Leukocytosis: Qualifiers: Leukocytosis type: unspecified Qualified Code(s): D72.829 - Elevated white blood cell count, unspecified Code(s): D72.829 - Elevated white blood cell count, unspecified Status: Acute (4) Hx of renal cell carcinoma: Onset Date: ~06/2018 Code(s): Z85.528 - Personal history of other malignant neoplasm of kidney Status: Acute DS: Summary Hospital Course Reason for hospitalization: 82yofemale with history of hyperlipidemia, diverticulitis is presenting with abdominal pain and constipation and found to have acute diverticulitis with perforation. Please see H&P for details Hospital Course: Patient presents with abdominal pain.? CT of the abdomen pelvis shows acute sigmoid diverticulitis with micro perforation and no drainable abscess.? Patient was started on Levaquin and Flagyl.? General surgery was consulted.? She had low-grade fever and fevers have resolved.? She had elevated white count which has normalized.? She was NPO. When she improved, we started her on clear liquid diet and we advanced as tolerated.? She was passing stooling and gas. Repeat CT of the abdomen pelvis again shows acute sigmoid diverticulitis with microperforation. Pain was reasonable. She overall did well and was able to be discharged home on 01/23/23 Status at Discharge Cognitive/behavioral status at discharge: stable Time Spent with Patient Time attestation: Total time spent providing and/or coordinating discharge services: 55 minutes Time spent: Greater than 30 minutes Exam Narrative: AF 96.8 121/65 74 18 99% ra Gen - NARD Chest - CTA bilaterally, nml RR CV - RRR S1/S2 Abd -soft. Lower abdominal tenderness guarding. Positive bowel sounds Ext - No pedal edema Psych - Nml mood and affect Skin - Warm and dry DS: Data Data Completed and Pending Labs on day of discharge: Labs from last 24 hours 01/23/23 06:20 WBC 9.7 RBC 3.88 L Hgb 11.7 L Hct 36.7 L MCV 94.6 MCH 30.2 MCHC 31.9 L RDW 13.3 Plt Count 333 MPV 9.7 Sodium 140 Potassium 3.7 Chloride 104 Carbon Dioxide 28 Anion Gap 8 BUN 7 Creatinine 0.80 Estim Creat Clear Calc 49 Estimated GFR > 60 Glucose 113 H Calcium 9.1 Discharge Plan Discharge Attending physician on discharge: Agustín Brown Consulting providers: Fransico East Discharging Clinician: Agustín Brown Anticipated Discharge Date/Time: 01/23/23 15:12 Patient Disposition: Home, Self-Care Activity: unlimited Diet: low fiber Discharge Instructions: Patient may discharge home today after tolerating low-fiber diet. Patient stay on low-fiber diet for about 2 weeks and then 2 high-fiber diet. No activity restrictions. Patient will be discharged on 2 oral antibiotics which have been sent to her pharmacy. Complete the whole 10 day course of oral antibiotics. No need to follow up with Dr. East in the office unless she wishes to discuss an elective sigmoid colon resection for her diverticulitis or she has recurrent symptoms. Patient can follow-up with her primary care physician. A colonoscopy was recommended to her if she wants to make sure that the recent episode of colitis was due to diverticulitis and not a colon cancer. I think it is very unlikely that she has developed colon cancer however without a colonoscopy this would be an educated guess. She will think about it and colonoscopy and will contact her GI doctor she wishes to get one. Don't strain to have bowel movement
== END 2023-01-23 16:55 | disposition home or self-care (01) | DRG 392 ==
LOC: ANHED 11:16 → ANH3MEDSUR 14:46
PROVIDERS: Emergency Medicine; Nurse Practitioner Family; Surgery; Admitting Provider Internal Medicine; Emergency Provider Nurse Practitioner Family; PCP Family Medicine; Visit Provider Internal Medicine
DX: K57.20 Diverticulitis of large intestine with perforation and abscess without bleeding (principal); E78.5 Hyperlipidemia, unspecified; I10 Essential (primary) hypertension; D72.829 Elevated white blood cell count, unspecified; K59.09 Other constipation; Z85.828 Personal history of other malignant neoplasm of skin; Z85.528 Personal history of other malignant neoplasm of kidney; Z90.49 Acquired absence of other specified parts of digestive tract; Z90.710 Acquired absence of both cervix and uterus; Z90.5 Acquired absence of kidney; Z79.82 Long term (current) use of aspirin; Z88.0 Allergy status to penicillin
CPT/HCPCS: 36415; 74177; 80048; 80053; 81001; 83690; 85025; 85027; 96374; 99285; A9270; C9113; J1650; J1741; J1836; J1956; J2405; J3010; J7120; J7121; Q9967

== ENCOUNTER → 2023-05-06 08:05 | Outpatient (CLI) | payer MEDICARE, SELFPAY ==
--- NOTE | ~2023-05-06 | US_ITS ---
EXAMINATION: US pelvic complete DATE: 05/06/2023 08:20 INDICATION: Pelvic pain. Cystocele, unspecified. TECHNIQUE: Multiple transabdominal sonographic images of the pelvis were obtained. COMPARISON: CT abdomen and pelvis 01/22/23 FINDINGS: The bladder is not well distended. The uterus is absent. The ovaries are not visualized. There is no ascites. IMPRESSION: 1. Absent uterus. 2. Ovaries not visualized. Reviewed, dictated and finalized at location E. [employer]
== END ==
PROVIDERS: PCP Family Medicine; Visit Provider Nurse Practitioner Family
DX: N81.10 Cystocele, unspecified (principal); R10.2 Pelvic and perineal pain
CPT/HCPCS: 76856

== ENCOUNTER 2023-05-17 10:06 | Outpatient (CLI) | payer MEDICARE, SELFPAY ==
--- NOTE | ~2023-05-17 | XR_ITS ---
Clinical Indication: Renal cell carcinoma PA and lateral views of the chest: Comparison: 01/20/2022 Findings: The lungs are clear, without evidence of focal consolidation or pleural effusion. Cardiome diastinal silhouette is within normal limits. Bones and soft tissues are unremarkable. Impression: Normal chest. Reviewed, dictated and finalized at [facility]. Impression: Normal chest.
== END 2023-05-17 10:07 ==
PROVIDERS: PCP Family Medicine
DX: C64.2 Malignant neoplasm of left kidney, except renal pelvis (principal)
CPT/HCPCS: 71046

== ENCOUNTER 2024-01-25 10:20 | Emergency (ER) | payer MEDICARE, SELFPAY ==
--- NOTE | ~2024-01-25 | XR_ITS ---
EXAMINATION: XR chest 2V DATE: 01/25/2024 11:30 INDICATION: 3 days of cough TECHNIQUE: PA and lateral views of the chest were obtained. COMPARISON: Chest radiograph dated 05/17/2023 FINDINGS: The lungs are clear with no focal airspace opacities, pulmonary edema, pleural effusion or pneumothor ax. Heart size is normal. Calcified mediastinal lymph nodes consistent with old granulomatous disease . Mild thoracic spondylosis with chronic mild anterior wedging of a few mid thoracic vertebral bodies . Cholecystectomy clips in the right upper quadrant. IMPRESSION: 1. No acute cardiopulmonary disease. Reviewed, dictated and finalized at location A. ASSEMBLER
[2024-01-25 10:32] VITALS: BP 169/69; PULSE 77; RESP 18; TEMP 36.7; O2SAT 99
--- NOTE | 2024-01-25 11:17 | ED_ITS ---
HPI - URI/Sore Throat General Chief Complaint: Upper Respiratory Infection Stated Complaint: cold symptoms Time Seen by Provider: 01/25/24 11:17 Source: patient, RN notes reviewed and old records reviewed Mode of arrival: ambulatory Limitations: no limitations History of Present Illness HPI Narrative: 83-year-old female presents to the [facility] with complaints of a 3 day history of nasal congestion, sore throat, dry cough. Did a telehealth visit with primary yesterday, was prescribed Tessalon Stef, states they were not helping. States that she did take a DayQuil Treatments prior to arrival: cold medicine Related Data Home Medications Medication Instructions Recorded Confirmed aspirin 81 mg tablet,delayed 81 mg PO DAILY 06/30/19 01/25/24 release (Adult Low Dose Aspirin) multivitamin 1 tablet PO DAILY 06/30/19 01/25/24 Allergies Allergy/AdvReac Type Severity Reaction Status Date / Time Penicillins Allergy Intermediate unknown Verified 01/25/24 10:50 codeine Allergy Unknown Unknown Verified 01/25/24 10:50 prochlorperazine Allergy nerve pain Verified 01/25/24 10:50 [From Compazine] Review of Systems Review of Systems: All systems reviewed & are unremarkable except as noted in HPI and below Constitutional: Constitutional: Reports no additional constitutional complaints ENT: Reports as per HPI Cardiovascular: Cardiovascular: Reports no additional cardiovascular complaints, Denies chest pain and Denies dyspnea Respiratory: Respiratory: Reports as per HPI, Denies chest congestion, Reports cough and Denies dyspnea Gastrointestinal: Gastrointestinal: Reports no additional gastrointestinal complaints, Denies abdominal pain, Denies nausea and Denies vomiting Musculoskeletal: Musculoskeletal: Reports no additional musculoskeletal complaints Integumentary/Breasts: Skin/Breast: Reports system reviewed and no additional complaints, except as docu PMFSH Past Medical History Medical History Arthralgia Diverticulitis of colon with perforation (~07/2023) Heat rash History of basal cell cancer (~2017) Hx of renal cell carcinoma (~06/2018) [facility] Gonzalez Hyperlipidemia (~2017) Osteopenia Pelvic pain in female Prediabetes (~2018) Slow transit constipation Surgical History Surgical History History of cholecystectomy (~1994) History of hysterectomy (~1988) History of laparotomy (~08/2023) status post sigmoidectomy with end-to-end colorectal anastomosis, small-bowel resection with primary anastomosis and temporary diverting loop ileostomy due to complicated diverticulitis 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 Status post reversal of ileostomy (~11/2023) Family History Family History Grandparent Cerebrovascular accident Father Family history of chronic obstructive pulmonary disease Mother Family history of chronic obstructive pulmonary disease Social History Social History Social History: moved from [place] to [place] 12/2017; Smoking status: Never smoker Second hand tobacco smoke exposure: Yes (family members smoke) Alcohol intake: never Alcohol use details: 1 PER MONTH Substance use: never Substance use type: does not use Lack of Transportation: No Lack of Food: Never True Current Housing: I Have Housing Concerned About Future Housing: No Difficulty Paying Gas/Electric Bills: No Difficulty Paying for Meds: No Currently Unemployed: No Education: High School Diploma/GED Difficulty w/ Childcare or Family Care: No Living arrangements: alone Additional living arrangements comments: [place] Occupation/Education: retired Gender identity (if verbalized by the patient): Female Spiritual care concerns: No Agree to blood products: Yes Comments At the time of my signature, I reviewed and agree with the nursing past medical, surgical, social, and family history. There is no relevant family history pertinent to the patient complaint. Exam Const: General: cooperative, healthy appearing, comfortable, no acute distress, well developed, alert and well nourished Nutritional Appearance: well nourished Orientation/consciousness: patient oriented x3 Limitations: no limitations HENMT: Head: normal to inspection Ears: hearing grossly normal bilaterally, external ears normal, TM's normal bilaterally, EAC's normal, mastoids normal and no periauricular adenopathy Face/Nose/Sinus: Normal external nose present, normal facial exam and face symmetric Face and sinus: normal facial exam and face symmetric Mouth: Yes Normal oral and palatal mucosa present, Yes lip normal and Yes tongue normal Throat: posterior oropharynx normal, uvula midline, postnasal drainage and no uvular edema Eyes: General: appearance normal, both eyes and all related structures Alignment and Position: alignment normal Periorbital: periorbital findings normal Neck: Neck: normal visual inspection, full ROM, no lymphadenopathy and no meningeal signs Chest: Chest palpation & inspection: normal inspection of the chest Resp: Effort & Inspection: normal respiratory effort and able to speak in complete sentences Auscultation: clear to auscultation bilaterally, no crackles, no rales, no rhonchi and no wheezes Cardio: Rate: regular rate Skin: General skin exam: normal color and no rashes or lesions noted Lesions: no lesions Rashes: no rashes Wounds: no wounds Neuro: General: patient oriented x3, gait normal, tone normal, moves all extremities and no meningeal signs Cognition (Neuro): normal cognition Speech: normal speech Gait exam (Neuro): Normal gait present Extrem: General: normal to inspection, full ROM, capillary refill normal and normal gait Psych: Appearance: grossly normal and well kempt Mental Status: mental status grossly normal Speech and movement: Normal speech and movement present and Clear speech present Affect: normal affect Attitude: cooperative Course Course Level of Care: Express Care Visit Vital Signs Vital signs: Vital Signs Temperature 98.0 F 01/25/24 10:32 Pulse Rate 77 01/25/24 10:32 Respiratory Rate 18 01/25/24 10:32 Blood Pressure 169/69 H 01/25/24 10:32 Pulse Oximetry 99 01/25/24 10:32 Oxygen Delivery Room Air 01/25/24 10:32 Temperature 98.0 F 01/25/24 10:32 Pulse Rate 77 01/25/24 10:32 Respiratory Rate 18 01/25/24 10:32 Blood Pressure 169/69 H 01/25/24 10:32 Pulse Oximetry 99 01/25/24 10:32 Oxygen Delivery Room Air 01/25/24 10:32 Reviewed MDM - URI/Sore Throat MDM Narrative Medical decision making narrative: Patient sitting comfortably in exam room. Nontoxic, vitals stable except blood pressure mildly elevated. Patient with URI symptoms, flu, COVID are negative. Chest x-ray negative. Exam with no acute findings other than postnasal drainage. Patient appropriate for outpatient treatment and follow-up Discharge instructions reviewed with patient, as well as provided in writing per nursing staff. The instructions also include specific and strict return/GO TO THE ER as well as f/u information. All questions have been answered, and the patient deny any further questions with discharge and discharge plan. Some parts of this dictation were generated by voice recognition software and may contain typographical and/or grammatical inaccuracies. Differential Diagnosis Differential diagnosis: Likely upper respiratory infection, otitis media, sinusitis, viral infection, bronchitis, influenza and pharyngitis Lab Data Labs: Lab Results 01/25/24 Range/Units 11:47 POC Influenza A Ag Negative (Negative) POC Influenza B Ag Negative (Negative) POC SARS CoV-2 Ag Negative (Negative) Reviewed Imaging Data Radiologist's impression: EXAMINATION: XR chest 2V DATE: 01/25/2024 11:30 INDICATION: 3 days of cough TECHNIQUE: PA and lateral views of the chest were obtained. COMPARISON: Chest radiograph dated 05/17/2023 FINDINGS: The lungs are clear with no focal airspace opacities, pulmonary edema, pleural effusion or pneumothorax. Heart size is normal. Calcified mediastinal lymph nodes consistent with old granulomatous disease. Mild thoracic spondylosis with chronic mild anterior wedging of a few mid thoracic vertebral bodies. Cholecystectomy clips in the right upper quadrant. IMPRESSION: 1. No acute cardiopulmonary disease. Critical Care Time Critical Care Time Critical Care Time: No Discharge Plan Discharge Clinical Impression: Upper respiratory infection, viral, PND (post-nasal drip) Patient Disposition: Home, Self-Care Condition: Stable Instructions: Antibiotic Form, Upper Respiratory Infection (ED), Postnasal Drip (DC) Additional Instructions: Your rapid COVID test were negative Your rapid flu test was negative Your chest x-ray did not show signs of a pneumonia. Your symptoms are likely due to a viral illness, which is not treated with antibiotics. Viral symptoms typically last 7-10 days, cough and other symptoms can linger for several weeks. It is very important that you do treat your symptoms -Alternate Tylenol and Motrin per package directions for fever or pain. -Antihistamine medication such as Benadryl at night and Zyrtec/Claritin/Debra during the day can help improve symptoms. -doing daily nasal irrigations can help relieve pressure your sinuses. Things like a Neti pot -Use Flonase twice a day for 5 days then daily to help reduce the inflammation and dry up your sinuses. -You can also use Mucinex. Be sure to drink plenty of water with this medication at least 8 ounces with every dose and it is important to drink 8 to 10 glasses of water per day. Water is a natural decongestant -Eat and drink things that are easy to swallow, like tea or soup, or popsicles. -Oral rinses such as: Salt water gargles and/or may use topical anesthetic (eg. Chloraseptic spray) or lozenges to relieve dryness or throat pain). -Frequent hand washing or hand cognos tm1 developer is one of the best ways to prevent spread of infection. -Using a vaporizer or humidifier at night will also help thin secretions and help with coughing up phlegm. -Follow up with primary care provider in 7-10 days if condition is not improving - For new or worsening symptoms go directly to the nearest ER Patient Language: Slovak Prescriptions: No Action aspirin [Adult Low Dose Aspirin] 81 mg tablet,delayed release (DR/EC) 81 mg PO DAILY multivitamin Tablet 1 tablet PO DAILY atorvastatin 10 mg tablet 10 mg PO DAILY Qty: 90 1RF lisinopril 10 mg tablet 10 mg PO DAILY Qty: 90 1RF Follow-up/Referrals: Monse West MD [Primary Care Provider] - 2 Weeks ([facility] care follow up blood pressure check. 169/69) Time of Disposition: 11:45
[2024-01-25 11:48] LABS: EDCOVIDSCREEN Negative (Negative); EDINFLUASCREEN Negative (Negative); EDINFLUBSCREEN Negative (Negative)
== END 2024-01-25 11:48 | disposition home or self-care (01) ==
PROVIDERS: Emergency Provider Nurse Practitioner; PCP Family Medicine
DX: J06.9 Acute upper respiratory infection, unspecified (principal); B97.89 Other viral agents as the cause of diseases classified elsewhere; Z79.82 Long term (current) use of aspirin; Z20.822 Contact with and (suspected) exposure to COVID-19
CPT/HCPCS: 71046; 87426; 87804; 99213; G0463

== ENCOUNTER 2024-05-13 15:05 | Outpatient (CLI) | payer MEDICARE, SELFPAY ==
--- NOTE | ~2024-05-13 | MM_ITS ---
EXAMINATION: MM screening narendra BI w zack HISTORY: Screening mammogram, family history of breast cancer in her daughter. TECHNIQUE: Craniocaudal and mediolateral oblique 3-D tomosynthesis images were obtained and synthetic 2-D images were generated. CAD analysis was submitted and interpreted. COMPARISON: 10/03/2022, 09/25/2021 BREAST PARENCHYMAL COMPOSITION:Not Dense. There are scattered areas of fibroglandular density. FINDINGS: No suspicious mass, calcification, or architectural distortion are identified in either jean ast to suggest malignancy. There has been no suspicious interval change. IMPRESSION: No mammographic evidence of malignancy. Recommend routine screening mammography in one year. BI-RADS Category 1: Negative Reviewed, dictated and finalized at location .
== END 2024-05-13 15:06 | disposition home or self-care (01) ==
PROVIDERS: PCP Family Medicine; Visit Provider Family Medicine
DX: Z12.31 Encounter for screening mammogram for malignant neoplasm of breast (principal)
CPT/HCPCS: 77063; 77067

== ENCOUNTER 2024-06-28 13:22 | Emergency (ER) | payer MEDICARE, SELFPAY ==
--- OUTSIDE RECORDS SUMMARY | 2024-06-28 13:26 | XMS_ITS | Clinical Summary ---
Author Organization [facility] Care Team Providers Care Barge Engineer Name Role Phone Unavailable Primary Care Provider Unavailabl e Social History Tobacco Use Types Packs/Day Years Used Date Smoking Tobacco: Never Assessed Comments Unknown Sex and Gender Information Value Date Recorded Sex Assigned at Not on file Legal Sex Female 11:55 AM PACKAGE CHECKER Gender Identity Not on file Sexual Orientation Not on file Plan of Treatment Health Maintenance Due Date Last Done Comments DEXA Bone Density 1940 Hepatitis C Virus (HCV) Screening 1940 TdaP Immunization 1940 Pneumococcal Immunization (5 0+ years) (1 of 1 - PCV) 1992 Zoster Immunization (1 of 2) 1992 Respiratory Syncytial Virus (RSV) Immunization (Adult) (1 - 1-dose 75+ series) 2017 Influenza Immunization (#1) 2023 SARS-COV-2 Immunization ( - season) 2023 Hepatitis B Immunization Aged Out No longer eligible based on patient's age to complete this topic Meningococcal Immunization (ACWY) Aged Out No longer eligible based on patient's age to complete this topic Rotavirus Immunization Aged Out No lo nger eligible based on patient's age to complete this topic
--- OUTSIDE RECORDS SUMMARY | 2024-06-28 13:26 | XMS_ITS | Referral Summary ---
Author Organization [facility] Address [facility] [place] [address] Care Team Providers Care Personnel Administrator Name Role Phone Balta Perry MD Unavailable [phone] Emani West MD Primary Care Provider Allergies Active Allergy Reactions Criticality Noted Date Comments Codeine Rash,Headache,Nausea only Medium Prochlorperazine Other (See comments) Low 4 Restlessness, Akathisia reaction even with benadryl co-treatment Penicillins Rash,Headache Medium 02/27/2023 Per Omari ERNST previously tolerated pip-tazo, allergy was a rash years ago to an unknown penicillin so ok to override and give Augmentin 09/01/23 Ritu PharmD Medications multivitamin capsuleIndicati ons:Vitamin Deficiency Prevention Take 1 capsule by mouth nightly Active aspirin 81 mg tabletIndicatio ns:prevention of thrombosis Take 1 tablet (81 mg total) by mouth nightly Active atorvastatin (LIPITOR) 10 mg tabletIndicatio ns:hyperlipidem ia Take 1 tablet (10 mg total) by mouth nightly 4 Active acetaminophen (TYLENOL) 500 mg tabletIndicatio ns:Pain Take 2 tablets (1,000 mg total) by mouth every 6 (six) hours as needed for pain 4 Active famotidine (PEPCID) 20 mg tabletIndicatio ns:Dyspepsia Take 1 tablet (20 mg total) by mouth 2 (two) times a day 60 tablet 4 10/07/19 25 Active omeprazole (PriLOSEC) 20 mg capsuleIndicati ons:Treatment of Non-Bleeding Gastric Disorder Take 1 capsule (20 mg total) by mouth daily 30 capsule 4 10/07/19 25 Active Additional Information Patient taking differently:20 mg oralDaily (early AM), Indications: Treatment of Non-Bleeding Gastric Disorder, Informant: Self, Reported on 11/18/2023 loperamide (IMODIUM) 2 mg capsuleIndicati ons:high output ileostomy Take 2 capsules (4 mg total) by mouth 4 (four) times a day (with meals and nightly) 240 capsule 4 Active sodium chloride 0.9% injection Infuse 10 mL into a venous catheter 2 (two) times a day 4 Active Additional Information Patient taking differently:10 mL intravenous 2 times daily,Indications: line care, Informant: Self, Reported on 11/18/2023 pxunwk-dzs-rrc- Rk-celob-hhixnf 35-20-5 mEq/20 mL solution Infuse 1,800 mL into a venous catheter daily 150ml/hr SEE IV ORDERS 4 Active Additional Information Patient taking differently:1,800 mL intravenousNightly, 150ml/hr SEE IV ORDERS,Indications: TPN, Informant: Self, Reported on 11/18/2023 busPIRone (BUSPAR) 5 mg tabletIndicatio ns:Generalized Anxiety Disorder Take 1 tablet (5 mg total) by mouth reading tutor before breakfast 4 Active lisinopriL (PRINIVIL,ZESTR IL) 10 mg tabletIndicatio ns:hypertension ,pt to take if systolic above 120 Take 1 tablet (10 mg total) by mouth daily as needed (HTN) 4 Active diphenoxylate-a tropine (LomotiL) 2.5-0.025 mg per tabletIndicatio ns:diarrhea Take 2 tablets by mouth 4 (four) times a day as needed for diarrhea Active traMADoL (ULTRAM) 50 mg tablet Take 1 tablet (50 mg total) by mouth every 6 (six) hours as needed for pain 7 tablet 4 Active Active Problems Problem Noted Date Diagnosed Date Ileostomy in place 11/08/2023 Nausea 09/18/2023 Assessment & Plan (10/05/2023 5:04 PM CDT): She tells me her nausea is all but gone. She describes it only as a little and occasionally . She still will have ondansetron 8 mg every 8 hours for nausea, likewise we will continue omeprazole 20 mg p.o. b.i.d.. She tells me that she is now eating 100%. I have messaged the GI fellow asking his consideration is stopping the intravenous TPN. I will await a response. Assessment & Plan (10/04/2023 12:50 PM CDT): This continues to wax and wane. Follow up with her surgeon, continue omeprazole, and ondansetron. Assessment & Plan (10/01/2023 4:12 PM CDT): Improved, continue famotidine and Zofran. Assessment & Plan (09/26/2023 10:24 AM CDT): Nausea controlled with day Zofran/Pepcid. Continue. Assessment & Plan (09/23/2023 11:11 AM CDT): Continues to have nausea. Will day zofran 8mg TID. Start Pepcid 20mg BID. Monitor. Assessment & Plan (09/20/2023 2:13 PM CDT): Persistent. Cont rx zofran. Assessment & Plan (09/18/2023 4:43 PM CDT): This is been persistent since her initial surgery. No current vomiting. Continue ondansetron 4 mg every 6 hours p.r.n. nausea. Mixed hyperlipidemia 09/18/2023 Assessment & Plan (10/05/2023 5:03 PM CDT): Continue atorvastatin Assessment & Plan (10/04/2023 12:44 PM CDT): This is currently stable. Please continue atorvastatin Assessment & Plan (09/18/2023 4:44 PM CDT): Continue atorvastatin 10 mg at HS Essential hypertension 09/18/2023 Assessment & Plan (10/05/2023 5:03 PM CDT): This remains stable. We will continue to monitor the trending of her vital signs and continue to hold lisinopril. Assessment & Plan (10/04/2023 12:45 PM CDT): This is currently stable and chronic. We have held her lisinopril because her blood pressure was trending low. For example in October 01 the reading was 96/53. Today are blood pressure is 137/66 without the lisinopril. Assessment & Plan (10/01/2023 4:10 PM CDT): This is currently stable. Continue lisinopril 10 mg daily and monitor vital signs. Assessment & Plan (09/20/2023 1:54 PM CDT): This is stable, cont to monitor vs. Cont to hold lisinopril. Assessment & Plan (09/18/2023 4:45 PM CDT): This is chronic stable. Monitor vital signs daily and observe for trend. Continue lisinopril 10 mg daily. Severe protein-calorie malnutrition 09/02/2023 Assessment & Plan (10/04/2023 12:49 PM CDT): Her oral intake continues to do be variable. Our dietitian is completing a 96 hour calorie count today. Her nausea continues to wax and wane. We will continue Jimmy Citron 8 mg every 8 hours p.r.n., we will continue TPN. This will be arranged through her home health agency to run 12 hours per day from p.m. to a.m.. Each 1800 mL bag we will contain 1313 calories, 80 g amino acids, 292 g of dextrose, 50 g of intra lipids, and also 90 mEq of sodium, 20 mEq of potassium, 4.6 mEq calcium, 20 mEq of magnesium, 20 millimoles of phosphorus, and 1 unit of trace elements. Recent labs are available in [facility] including labs obtained October 02. These labs were stable indicating an improvement in hemoglobin hematocrit, and a slight but stable elevation of liver function testing. Assessment & Plan (10/01/2023 4:12 PM CDT): Her nausea has improved although it continues to come and go. She does have Zofran for symptom. She also notes that she is eating a good portion of each meal tray. I have asked the dietitian to begin a linear calorie count for 72 hours. I have also messaged her surgeon to see when and if the TPN could be discontinued. In the interim we will continue to monitor labs, continue the TPN and the plan is for her to follow up with surgery for reversal of her colostomy. Assessment & Plan (09/26/2023 10:26 AM CDT): Patient is eating 75-100% of her meals. Nausea controlled. Albumin/Protein WNL. Weight controlled. She had surgery appt 09/24 & was told to continue on TPN for another 6 weeks. Unsure if provider aware of her PO intake. Have reached out via [employer] chat to inform & clarify TPN plan. If is to continue for another 6 weeks will need to start teaching for dcp. Assessment & Plan (09/23/2023 11:06 AM CDT): Continue TPN. Issue with order - admin is addressing. She will fu with Surgery 09/24. Assessment & Plan (09/20/2023 1:56 PM CDT): This is unchanged; cont IV TPN. Cont zofran for nausea. Increase zofran dosing to 8mg per dose. Assessment & Plan (09/18/2023 4:41 PM CDT): Continue intravenous TPN and follow up labs were ordered. Dietary consult to follow. Diverticulitis of both large and small intestine with perforation without bleeding 04/18/2023 Assessment & Plan (10/07/2023 10:09 AM CDT): With colostomy. Has had multiple hospitalization r/t nausea, malnutrition, high output. Continue Pecpid, PPI, Zofran day for Nausea; Continue Lomitol, Imodium, Fiber for high output. Fu with Surgery as arranged. HH RN for IV supplies. Continue TPN & PICC care per Surgery. Assessment & Plan (10/05/2023 5:05 PM CDT): This is subacute and healing. She is awaiting a surgical appointment in early November to discuss reversal. She tells me her stools are controlled on the current regimen of Lomotil and loperamide. Likewise she is taking Metamucil to provide form to her stools. Assessment & Plan (10/04/2023 12:53 PM CDT): She has had problems with loose unformed stools. She is currently stabilized with loperamide, Lomotil, and psyllium bid. She reports that in the past 2 days it has been formed and infrequent. She tells me prior to increasing psyllium 2 b.i.d. it was p ouring Assessment & Plan (09/23/2023 11:05 AM CDT): With colostomy in place. Fu with Dr. Moura 09/24. Continues to have high outpt liquid stools. Continue Lomotil 2 tabs qid, Imodium 2 caps QID + Fiber. Assessment & Plan (09/18/2023 4:44 PM CDT): Nursing to follow ostomy care. Continue Lomotil 2 tablets q.i.d., loperamide 2 caps a.c. and HS, and Metamucil 1 packet b.i.d.. Malignant neoplasm of left kidney 05/10/2022 Assessment & Plan (10/04/2023 12:51 PM CDT): To follow up with her primary care physician Assessment & Plan (09/18/2023 4:42 PM CDT): This is a chronic problem, not currently active Assessment & Plan (05/10/2022 1:13 PM SALES ATTENDANT): -s/p left partial nephrectomy on 06/18/18. Doing well since then and no complaints. -CT showing GONZALEZ. Xray notes 6mm right upper lung opacity overlying right 1st rib/clavicle and recommended repeat PA/lateral chest xray within 1 month. PLAN: -Will have repeat imaging done. If still concerning findings possible referral to pulm or PCP for further management. Opacity of lung on imaging study 05/10/2022 Palpitations 04/30/2018 PVC's (premature ventricular contractions) 04/30 Lumbago 10/23/2011 Resolved Problems Problem Noted Date Diagnosed Date Resolved Date Rash 09/23/2023 10/07/2023 Assessment & Plan (09/23/2023 11:12 AM CDT): Vaginal burning/rawness. Start Miconazole TID. Monitor. Hyperkalemia 09/20/2023 09/26/2023 Assessment & Plan (09/23/2023 10:57 AM CDT): Normalized. Kcl changed to TPN. Continue to monitor. Continue hold Lisinopril - BP stable. Assessment & Plan (09/20/2023 2:12 PM CDT): Today's lab reviewed. K 5.9; spoke w stef Macias and we agreed to decrease the TPN KCL from 60meq to 20meq; repeat lab Saturday. Will hold GAVIN lisinopril. Assessment & Plan (09/20/2023 2:08 PM CDT): Today's lab reviewed w K 5.9; The TPN K content had been reduced from 60meq/L to 20meq/L and the gavin is on hold. Repeat lab for Saturday. I spoke w pharmacist (TEE Bianchi; He confirmed that the current regimen includes to 20meq KCL. Abdominal pain 09/09/2023 09/23/2023 Assessment & Plan (09/20/2023 2:12 PM CDT): resolved Assessment & Plan (09/18/2023 4:41 PM CDT): She reports this to be resolved. Vomiting 08/30/2023 09/18/2023 Diverticulitis 04/15/2023 09/23/2023 Acute postoperative abdominal pain 04/15/2023 09/23/2023 Chronic idiopathic constipation 08/16/2022 09/23/2023 Renal mass 04/14/2018 10/07/2023 Knee pain 01/09/2013 09/23/2023 Immunizations Immunization Administration Dates Next Due Pfizer SARS-CoV-2 Monovalent Vaccination (12+ Yrs) PURPLE 04/29/2020,04/08/2020 Social History Tobacco Use Types Packs/Day Years Used Date Smoking Tobacco: Never Passive Smoke Exposure: Past Smokeless Tobacco: Never Tobacco Cessation:Counseling Given: Not Answered Alcohol Use Standard Drinks/Week Comments Yes 0 (1 standard drink = 0.6 oz pur e alcohol) rare OASIS D0700: Social Isolation Answer Da te Recorded Frequency of experiencing loneliness or isolatio n Never 09/08/2023 OASIS A1250: Transportation Answer Date Recorded Lack of Transportation (Medical) No 09/08/2023 Lack of Transportation (Non-Medical) No 09/08/2023 Patient Unable or Declines to Respond No 09/08/2023 OASIS B1300: Health Literacy Answer [place] e Recorded Frequency of needing help to read materials from doctor or pharmacy Never 09/08/2023 [facility] Utilities Answer Date Recorded In the past 12 months has e [employer], [employer], oil, or water [employer] threatened to shut off services in your home? No 09/12/2023 Social Connection and Isolat ion Panel [NHANES] Answer Date Recorded In a typical week, how many times do you talk on the phone with family, friends, or neighbors? More than three times a week 09/12/2023 How often do you get togethe r with friends or relatives? More than three times a week 09/12/2023 How often do you attend chur or taoism services? More than 4 times per year 09/12/2023 Do you belong to any clubs o r organizations such as temple groups, unions, fraternal or athletic groups, or school groups? Yes 09/12/2023 How often do you attend meet ings of the clubs or organizations you belong to? More than 4 times per year 09/12/2023 Are you , , di vorced, , never , or living with a partner? 09/12/2023 AUDIT-C Answer Date Recorded Q1: How often do you have a drink containing alcohol? Never 11/29/2023 Q2: How many drinks containi ng alcohol do you have on a typical day when you are drinking? Patient does not drink Q3: How often do you have si x or more drinks on one occasion? Never 11/29/2023 Overall Financial Resource Strain (CARDIA) Answe r Date Recorded How hard is it for you to pa y for the very basics like food, housing, medical care, and heating? Not hard at all 09/12/2023 PHQ-2 Answer Date Recorded PHQ-2 Total Score 0 09/12/2023 Hunger Vital Sign Answer Date Recorded Within the past 12 months, y ou worried that your food would run out before you got the money to buy more. Never true 09/12/19 24 Within the past 12 months, t he food you bought just didn't last and you didn't have money to get more. Never true 09/12/2023 PRAPARE - Transportation Answer Date Re corded In the past 12 months, has l ack of transportation kept you from medical appointments or from getting medications? No 09/01 In the past 12 months, has l ack of transportation kept you from meetings, work, or from getting things needed for daily living? No 09/12/2023 Housing Stability Vital Sign Answer [place] Recorded In the last 12 months, was t here a time when you were not able to pay the mortgage or rent on time? No 07/01/2023 In the last 12 months, how many places have you lived? 1 07/01/2023 In the last 12 months, was t here a time when you did not have a steady place to sleep or slept in a [place] (including now)? No 07/01/2023 Housing Stability Vital Sign Answer [place] Recorded In the last 12 months, was t here a time when you were not able to pay the mortgage or rent on time? No 09/12/2023 In the past 12 months, how m any times have you moved where you were living? 0 09/12/2023 At any time in the past 12 m [facility], were you homeless or living in a [place] facility (including now)? No 09/12/2023 Personal Safety Answer Date Recorded Have you ever been in or are you currently in a harmful physical or emotional relationship or is someone making you feel afraid or unsafe? Denies 11/29/2023 Comments No Sex and Gender Information Value Date Recorded Sex Assigned at Not on file Legal Sex Female 3:59 AM SALES ATTENDANT Gender Identity Female 05/03/2022 2:17 PM SALES ATTENDANT Sexual Orientation Not on file Last Filed Vital Signs Vital Sign Reading Time Taken Comments Blood Pressure 150/82 01/01/2024 10:45 AM CDT Pulse 70 01/01/2024 10:45 AM CDT Temperature 36.9 C (98.5 F) 12/01/2023 2:55 PM CDT Respiratory Rate 16 12/01/2023 2:55 PM CDT Oxygen Saturation 98% 01/01/2024 10:45 AM CDT Inhaled Oxygen Concentration - - Weight 77.1 kg (170 lb) 01/01/2024 10:45 AM CDT Height 165.1 cm (5' 5 ) 01/01/2024 10:45 AM CDT Body Mass Index 28.29 01/01/2024 10:45 AM CDT Plan of Treatment Not on file Goals Goal Patient Goal Type Associated Problems Recent Progress Patient-Stated? Author Colorectal Pre-Surgical Steps Care Plan Colorectal Pre-Surgical Plan Fela Hernandez RN Additional Health Concerns Active Problems Noted Date Diagnosed Date Colorectal Pre-Surgical Plan 11/08/2023 Insurance [employer] CHOICE MEDICARE PPO MEDICARE [facility] HU[employer] CHOICE MEDICARE PPO [employer] CHOICE MEDICARE PPO Advance Directives For more information, please contact: [phone] Documents on File Type Date Recorded Patient Restrictive Preparation Operator Expl anation ADVANCE DIRECTIVE 08/13/2023 5:56 AM Power of Assisted Living Home Director-Medical * Full Code (Latest Code Status on File) Date Activated Date Inactivated Comments 11/29/2023 11:45 AM 12/01/2023 9:48 PM * Full Code Date Activated Date Inactivated Comments 09/10/2023 1:39 AM 09/17/2023 7:53 PM * Full Code Date Activated Date Inactivated Comments 08/30/2023 4:29 AM 09/06/2023 8:17 PM * Full Code Date Activated Date Inactivated Comments 08/13/2023 3:25 PM 08/23/2023 8:22 PM * Full Code Date Activated Date Inactivated Comments 06/28/2023 8:30 PM 07/04/2023 4:25 PM Care Teams Personnel Administrator Relationship Specialty Start Date End Date Emain West MD [facility] [address] [address] PCP - General Family Practice 08/30/23 Balta Perry MD [phone] [place] [address] Surgeon Colon and Rectal Surgery 03/21/23
--- OUTSIDE RECORDS SUMMARY | 2024-06-28 13:26 | XMS_ITS | Encounter Summary ---
Author Organization [facility] Address [facility] [place] [address] Care Team Providers Care Reel Cart Operator Name Role Phone Balta Perry MD Primary Care Provider [phone] Emani West MD Primary Care Provider Encounter Details Date Type Department Care Team (Late st Contact Info) Description 10/15/2023 Therapy Plan [facility] [address] [facility] [place], [place] [id number] Balta Perry MD [address], [place] [id number] Social History Tobacco Use Types Packs/Day Years Used Date Smoking Tobacco: Never Assessed Comments Unknown Sex and Gender Information Value Date Recorded Sex Assigned at Not on file Legal Sex Female 4:01 PM CDT Gender Identity Not on file Sexual Orientation Not on file documented as of this encounter Plan of Treatment Not on file documented as of this encounter Visit Diagnoses Diagnosis Adjustment and management of vascular access device- Primary Fitting and adjustment of other device documented in this encounter Care Teams Reel Cart Operator Relationship Specialty Start Date End Date Balta Perry MD [address] [facility] [place] [facility] [phone] [place] [address] PCP - General COLON/RECTAL SURGERY 10/14/23 01/08/24 Emani West MD [address] [facility] [place] [address] PCP - General FAMILY PRACTICE 01/09/24 documented as of this encounter
--- OUTSIDE RECORDS SUMMARY | 2024-06-28 13:26 | XMS_ITS | Encounter Summary ---
Author Organization [facility] Address [address] [place] [address] Phone Care Team Providers Care Press Tender Star Signal Name Role Phone Yann Pineda MD Primary Care Provider [phone] Emani West MD Primary Care Provider Balta Perry MD Unavailable [phone] Balta Perry MD Primary Care Provider Emani West MD Primary Care Provider Encounter Details Date Type Department Care Team (Latest Contact Info) Description 03/17/2018 Orders Only [facility] Scanning, Provider Social History Tobacco Use Types Packs/Day Years Used Date Smoking Tobacco: Never Comments Unknown Sex and Gender Information Value Date Recorded Sex Assigned at Not on file Legal Sex Female 3:59 AM RN LAB Gender Identity Female 05/03/2022 2:17 PM RN LAB Sexual Orientation Not on file documented as of this encounter Plan of Treatment Not on file documented as of this encounter Procedures Procedure Name Priority Date/Time Associated Diagnosis Comments CARDIOLOGY DOCUMENT SCAN 03/17/2018 documented in this encounter Results * SCAN - CARDIOLOGY (03/17/2018) Anatomical Region Laterality Modality Other us Provider Scanning CV CARDIAC SERVICES PROCEDURES Final Result documented in this encounter Visit Diagnoses Not on filedocumented in this encounter Additional Health Concerns Infection Onset Date Last Indicated Resolved Time C. difficile suspected 07/01/2023 07/01/202306/30 10:48 AM CDT Exposure, COVID-19 Comment:09/11/2023- Patient exposed to positive neighbor, 09/08/23. Will remain on Isolation for 10 days. Monitor for s/sx. If s/sx develop, test patient. A negative test cannot be used to d/c Isolation prior to 10 days. Faith Watson 09/08/2023 09/11/2023 09/19/2023 3:05 AM C DT C. difficile suspected 09/09/2023 09/09/202309/09 4:40 AM CDT documented as of this encounter Care Teams Press Tender Star Signal Relationship Specialty Start Date End Date Yann Pineda MD [address] [place] [address] PCP - General Family Practice 03/21/18 05/04/20 Emani West MD [address] [place] [address] PCP - General 05/05/20 08/22/23 Balta Perry MD [address] [facility] [phone] [place] [address] PCP - General Colon and Rectal Surgery 08/23/2308/28 Emani West MD [facility] [address] [place] [address] [place] [id number] PCP - General Family Practice 08/30/23 Balta Perry MD [phone] [place] [address] Surgeon Colon and Rectal Surgery 03/21/23 documented as of this encounter
--- OUTSIDE RECORDS SUMMARY | 2024-06-28 13:26 | XMS_ITS | Clinical Summary ---
Author Organization [facility] Address [address] [place] [address] Care Team Providers Care Accounting Officer Name Role Phone Balta Perry MD Unavailable [phone] Emani West MD Primary Care Provider Allergies Active Allergy Reactions Criticality Noted Date Comments Codeine Rash,Headache,Nausea only Medium Prochlorperazine Other (See comments) Low 4 Restlessness, Akathisia reaction even with benadryl co-treatment Penicillins Rash,Headache Medium 02/27/2023 Per Omari ERNST previously tolerated pip-tazo, allergy was a rash years ago to an unknown penicillin so ok to override and give Augmentin 09/01/23 Anthonys PharmD Medications multivitamin capsuleIndicati ons:Vitamin Deficiency Prevention [...] line care, Informant: Self, Reported on 11/18/2023 yecdgi-exq-dej- Hr-xrlpr-szinup 35-20-5 mEq/20 mL solution Infuse 1,800 mL into a venous catheter daily 150ml/hr SEE IV ORDERS 4 Active Additional Information Patient taking differently:1,800 mL intravenousNightly, 150ml/hr SEE IV ORDERS,Indications: TPN, Informant: Self, Reported on 11/18/2023 busPIRone (BUSPAR) 5 mg tabletIndicatio ns:Generalized Anxiety Disorder Take 1 tablet (5 mg total) by mouth fermentation manager before breakfast 4 Active lisinopriL (PRINIVIL,ZESTR IL) [...] trace elements. Recent labs are available in [employer] including labs obtained October 02. These labs [...] her PO intake. Have reached out via [employer] chat to inform & clarify TPN plan. 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 Doing [...] SARS-CoV-2 Monovalent Vaccination (12+ Yrs) PURPLE 04/29/2020,04/08/2020 Surgical History Surgery Date Site/Laterality Comments HYSTERECTOMY W/ BILATERAL SALPINGOOPHORECTOMY CHOLECYSTECTOMY CATARACT EXTRACTION PARTIAL NEPHRECTOMY 03/04/2018 - 03/03/2019 Left COLONOSCOPY 03/04/2018 - 03/03/2019 COLONOSCOPY 05/14/2023 Medical History Medical History Date Comments Anxiety Hyperlipidemia Renal cell carcinoma (HCC) 2019 Foot fracture left foot Hypertension Diverticulitis PONV (postoperative nausea a nd vomiting) Endorses PONV after left nephrectomy 2018 Nausea 09/18/2023 Mixed hyperlipidemia 09/18/2023 Essential hypertension 09/18/2023 Family History Medical History Relation Name Comments Breast cancer Child No Known Problems Daughter 1 No Known Problems Daughter 2 Car Accident Daughter 3 Alcohol abuse Father Emphysema Father Heart defect Father Emphysema Mother Uterine cancer Other sister Diabetes type II Sister Anesthesia problems Neg Hx Celiac disease Neg Hx Colon cancer Neg Hx Inflammatory bowel disease Neg Hx Malig Hyperthermia Neg Hx Pseudochol deficiency Neg Hx Stomach cancer Neg Hx Relation Name Status Comments Child Daughter 1 Alive Daughter 2 Alive Daughter 3 Father Mother Other sister Alive Sister Social History Tobacco Use Types Packs/Day Years [...] materials from doctor or pharmacy Never 09/08/[address] [facility] Utilities Answer Date Recorded In the past 12 months has th e electric, gas, oil, or water company threatened to shut off services in your [...] 09/12/2023 How often do you attend chur ch or yazdanism services? More than 4 times per year 09/12/2023 Do you belong to any clubs o r organizations such as moravian groups, unions, fraternal or athletic groups, or [...] place to sleep or slept in a fpc (including now)? No 07/01/2023 Housing Stability Vital Sign Answer [place] e Recorded In the last 12 months, was t here a time when you were not able to pay the mortgage or rent on time? No 09/12/2023 In the past 12 months, how m any times have you moved where you were living? 0 09/12/2023 At any time in the past 12 m [facility], were you homeless or living in a fpc (including now)? No 09/12/2023 Personal Safety Answer Date Recorded Have you ever been in or are you currently in a harmful physical or emotional relationship or is someone making you feel afraid or unsafe? Denies 11/29/2023 Comments No Sex and Gender Information Value Date Recorded Sex Assigned at Not on file Legal Sex Female 3:59 AM BELT AND LINK ASSEMBLY SUPERVISOR Gender Identity Female 05/03/2022 2:17 PM BELT AND LINK ASSEMBLY SUPERVISOR Sexual Orientation Not on file Obstetrics History Last Filed Vital Signs Vital Sign Reading [...] 01/01/2024 10:45 AM CDT Plan of Treatment Health Maintenance Due Date Last Done Comments Osteoporosis Screening-Bone Density Scan 1940 Hepatitis B Screening 1960 Zoster Vaccine (1 of 2) 1992 Well Visit 65+ 05/25/2007 Covid-19 Vaccine (3 - 2023-2 5 season) 2023 04/29/2020, 04/08/2020 Influenza Vaccine (#1) 2023 9, 11/02/2017, 12/22/2015, Additional history exists Depression Screening 09/08/2024 09/09/2023, 08/29/19 24 Fall Risk Assessment 11/30/2024 12/01/2023 DTaP/Tdap/Td Vaccine (3 - Td or Tdap) 07/09/2027 07/08/2017, 07/08/2017 Pneumococcal vaccine 65+ Completed 017, 03/10/2016, 05/07/2014, Additional history exists Goals Goal Patient Goal Type Associated Problems Recent Progress Patient-Stated? Author Colorectal Pre-Surgical Steps Care Plan Colorectal Pre-Surgical Plan Fela Hernandez RN Additional Health Concerns Active Problems Noted Date Diagnosed Date Colorectal Pre-Surgical Plan 11/08/2023 Insurance HU[employer]NA CHOICE MEDICARE PPO MEDICARE [facility] HUMANA CHOICE MEDICARE PPO HUMANA CHOICE MEDICARE PPO Advance Directives For more information, please contact: [phone] Documents on File Type Date Recorded Patient Desk Sergeant Expl anation ADVANCE DIRECTIVE 08/13/2023 5:56 AM Power of Assembler [employer] * Full Code (Latest Code Status on [...] 8:30 PM 07/04/2023 4:25 PM Care Teams Accounting Officer Relationship Specialty Start Date End Date Emani West MD [address] [place] [address] [address] PCP - General Family Practice 08/30/23 Balta Perry MD [phone] [place] [address] Surgeon Colon and Rectal Surgery 03/21/23
--- OUTSIDE RECORDS SUMMARY | 2024-06-28 13:26 | XMS_ITS | Encounter Summary ---
Author Organization [facility] Address [address] [place] [address] Phone Care Team Providers Care Supervisor Whipped Topping Name Role Phone Yann Pineda MD Primary Care Provider [phone] Emani West MD Primary Care Provider Balta Perry MD Unavailable [phone] Balta Perry MD Primary Care Provider Emani West MD Primary Care Provider Encounter Details Date Type Department Care Team (Latest Contact Info) Description 03/21/2018 Orders Only [facility] Scanning, Provider Social History Tobacco Use Types Packs/Day Years Used Date Smoking Tobacco: Never Comments Unknown Sex and Gender Information Value Date Recorded Sex Assigned at Not on file Legal Sex Female 3:59 AM GLOBE TESTER Gender Identity Female 05/03/2022 2:17 PM GLOBE TESTER Sexual Orientation Not on file documented as of this encounter Plan of Treatment Not on file documented as of this encounter Procedures Procedure Name Priority Date/Time Associated Diagnosis Comments CARDIOLOGY DOCUMENT SCAN 03/21/2018 documented in this encounter Results * SCAN - CARDIOLOGY (03/21/2018) Anatomical Region Laterality Modality Other us Provider Scanning CV CARDIAC SERVICES PROCEDURES Edited Result - Final documented in this encounter Visit Diagnoses Not [...] documented as of this encounter Care Teams Supervisor Whipped Topping Relationship Specialty Start Date End Date Yann Pineda MD [address] [place] [address] PCP - General Family Practice 03/21/18 05/04/20 Emnai West MD [address] [place] [address] PCP - General 05/05/20 08/22/23 Balta Perry MD [address] [facility] [phone] [place] [address] PCP - General Colon and Rectal Surgery 08/23/2308/28 Emani West MD [facility] [place] [address] [place] [address] PCP - General Family Practice 08/30/23 Balta Perry MD [phone] [place] [address] Surgeon Colon and Rectal Surgery 03/21/23 documented as of this encounter
--- OUTSIDE RECORDS SUMMARY | 2024-06-28 13:26 | XMS_ITS | Encounter Summary ---
Author Organization [facility] Address [address] [place] [address] Phone Care Team Providers Care Fleet Dispatch Manager Name Role Phone Yann Pineda MD Primary Care Provider [phone] Emani West MD Primary Care Provider Balta Perry MD Unavailable [phone] Balta Perry MD Primary Care Provider Emani West MD Primary Care Provider Encounter Details Date Type Department Care Team (Latest Contact Info) Description 04/01/2018 Orders Only [facility] Scanning, Provider Social History Tobacco Use Types Packs/Day Years Used Date Smoking Tobacco: Never Comments Unknown Sex and Gender Information Value Date Recorded Sex Assigned at Not on file Legal Sex Female 3:59 AM ACADEMIC PROGRAM SPECIALIST Gender Identity Female 05/03/2022 2:17 PM ACADEMIC PROGRAM SPECIALIST Sexual Orientation Not on file documented as of this encounter Plan of Treatment Not on file documented as of this encounter Procedures Procedure Name Priority Date/Time Associated Diagnosis Comments CARDIOLOGY DOCUMENT SCAN 04/01/2018 documented in this encounter Results * SCAN - CARDIOLOGY (04/01/2018) Anatomical Region Laterality Modality Other us Provider [...] documented as of this encounter Care Teams Fleet Dispatch Manager Relationship Specialty Start Date End Date Yann Pineda MD [address] [place] [address] PCP - General Family Practice 03/21/18 05/04/20 Emani West MD [address] [place] [address] PCP - General 05/05/20 08/22/23 Balta Perry MD [address] [facility] [phone] [place] [address] PCP - General Colon and Rectal Surgery 08/23/2308/28 Emani West MD [facility] [address] [address] [place] [address] PCP - General Family Practice 08/30/23 Balta Perry MD [phone] [place] [address] Surgeon Colon and Rectal Surgery 03/21/23 documented as of this encounter
--- OUTSIDE RECORDS SUMMARY | 2024-06-28 13:26 | XMS_ITS | Continuity of Care Document ---
Author Organization [facility] Address [address] [place] [address] [place] [address] Phone Care Team Providers Care Hospitality Housekeeper Name Role Phone Unavailable Unavailable Unavailable Advance Directives Directive Yes / No Effective Date File Name No Information Encounters Encounter Description Practice Location Reason(s) For Visit Diagnoses Date Provider Providers Copied on Encounter [facility], [address], [place], [place], [id number], [place] tel:[phone] [facility] No Information [phone] No Information Family History Family Member Type Diagnosis Age At Onset No Information Payers Payer name Insurance type Covered libertarian ID Authoriza tion(s) No Information Social History Type Description Quantity Date Captured Comments Sex Female Smoking Status No Information Chief Complaint And Reason For Visit No Information Reason For Referral Reason For Referral No Information History Of Present Illness Encounter Date Complaint History Of Prese nt Illness No Information Functional Status Date Functional Assessmen t No Information Instructions Date Instruction Additional Infor mation No Information Assessments Type Assessment Date No Information Patient Care Teams Name Effective Dates (start - stop) Status Members No Information
--- OUTSIDE RECORDS SUMMARY | 2024-06-28 13:26 | XMS_ITS | Encounter Summary ---
Author Organization [facility] Address [address] [facility] [place] [address] Care Team Providers Care Detonator Maker Name Role Phone Emani West MD Primary Care Provider Encounter Details Date Type Department Care Team (Late st Contact Info) Description 05/10/2022 Lab Requisition [facility] D[facility] Lab [address] [place] [id number] Samy Montesinos MD [address] [facility] [place] [address] Social History Tobacco Use Types Packs/Day Years Used Date Smoking Tobacco: Never Assessed Comments Unknown Sex and Gender Information Value Date Recorded Sex Assigned at Not on file Legal Sex Female 5:08 AM DRYWALL WORKER Gender Identity Not on file Sexual Orientation Not on file documented as of this encounter Plan of Treatment Not on file documented as of this encounter Procedures Procedure Name Priority Date/Time Associated Diagnosis Comments DERMATOPATHOLOGY Routine 05/09/2022 12:0 0 AM DRYWALL WORKER documented in this encounter Results * DERMATOPATHOLOGY (05/09/2022 12:00 AM DRYWALL WORKER) Case Report Dermatopathology Report Case: [id number] Authorizing Provider: Samy Montesinos MD Collected: 05/09/2022 12:00 AM Ordering Location: [facility] Care DermPath Lab Received: 05/10/2022 04:26 PM Pathologist: Karrie Pace MD Specimens: A) - Skin, right shoulder B) - Skin, right dorsum hand 10:57 AM [facility] Final Diagnosis Specimen A. SKIN, right shoulder: LICHEN PLANUS-LIKE KERATOSIS (BENIGN LICHENOID KERATOSIS) (L82.1) Specimen B. 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 The specimen consists of a shave biopsy measuring 10x6x1 mm. Jar 0. Specimen B: Received is one formalin filled container labeled with the patient's name and designated right dorsum hand. The specimen consists of a shave biopsy measuring 5x4x1 mm. Jar 0. 10:57 AM [facility] Microscopic Description Specimen A. SKIN, right shoulder: The epidermis is mildly acanthotic. There is a lichenoid infiltrate with vacuolar changes of basilar keratinocytes and scattered necrotic keratinocytes. Specimen B. SKIN, right dorsum hand: The epidermis is mildly acanthotic. There is a lichenoid infiltrate with vacuolar changes of basilar keratinocytes and scattered necrotic keratinocytes. 10:57 AM [facility] Disclaimer An external and internal positive and negative controls are appropriate for the histochemical, immunohistochemical and immunofluorescence stain(s) in this case (if any), except where stated explicitly. The performance characteristics of the stain(s) cited in this report were developed and its performance characteristic determined by the Dermatopathology Laboratory at [facility], directed by Dr. Hali Avitia. These tests need not be, and therefore are not, approved by the [place] Food and Drug Administration. The tests are used for clinical purposes. Billing Codes Specimen Charges Stain Charges 42691 37786 1 1 10:57 AM [facility] Embedded Images 10:57 AM [facility] Pathology/Cytology TISSUE SPECIMEN FROM SKIN / Unknown 05/09/2022 05/10/2022 4:26 PM DRYWALL WORKER Miscellaneous samples (specimen) TISSUE SPECIMEN FROM SKIN / Unknown 05/09/2022 05/10/2022 4:26 PM DRYWALL WORKER us Samy Montesinos MD LAB - PATHOLOGY/CYTOLOGY ORDER UNIQUE Final Result DERMATOPATHOLOGY LABORATORY [facility] - Department of Dermatology [facility] Specialized Medicine [address] [place] [address], [address] [phone] documented in this encounter Visit Diagnoses Not on filedocumented in this encounter Care Teams Detonator Maker Relationship Specialty Start Date End Date Emani West MD [address] [place] [address] PCP - General Family Medicine 08/14/23 documented as of this encounter
--- OUTSIDE RECORDS SUMMARY | 2024-06-28 13:26 | XMS_ITS | Clinical Summary ---
Author Organization [facility] Address [address] [place] [address] Care Team Providers Care Chip Crusher Operator Name Role Phone Emani West MD Primary Care Provider Source Comments [facility],non-owned Affiliates and Associated Physician Practices is amultiple site organization consisting of ambulatory clinics and hospital sitesin [place], [place], [place] and [place]. This disclosure is being madepursuant to the Care Everywhere program and may not contain all information available regarding this patient. Last updated 17.[facility] Social History Tobacco Use Types Packs/Day Years Used Date Smoking Tobacco: Never Assessed Comments Unknown Sex and Gender Information Value Date Recorded Sex Assigned at Not on file Legal Sex Female 5:08 AM CONTRACTING ENGINEER Gender Identity Not on file Sexual Orientation Not on file Plan of Treatment Health Maintenance Due Date Last Done Comments BONE DENSITY TESTING 1942 DTAP/TDAP/TD VACCINES (1 - Tdap) 1961 PNEUMOCOCCAL VACCINE 50+ (1 of 1 - PCV) 1992 ZOSTER VACCINE (1 of 2) 1992 Respiratory Syncytial Virus (RSV) Vaccine Pt: or over 60 yrs (1 - 1-dose 75+ series) 2017 COVID-19 VACCINE ( - 2023-2 5 season) 2023 04/29/2020, 04/08/2020 DEPRESSION SCREENING 03/04/2024 MEDICARE AWV CALENDAR YEAR 2024 INFLUENZA VACCINE (Season Ended) 2024 HEPATITIS B VACCINE Aged Out No longe r eligible based on patient's age to complete this topic HIB VACCINE Aged Out No longer eligi ble based on patient's age to complete this topic HPV VACCINE Aged Out No longer eligi ble based on patient's age to complete this topic MENINGOCOCCAL (Group B) VACCINE SHARED DECISION-MAKING Aged Out No longer eligible based on patient's age to complete this topic MENINGOCOCCAL GROUPS A/C/Y/W VACCINE Aged Out No longer eligible b ased on patient's age to complete this topic Insurance MEDICARE MEDICARE ADV HMO & PPO HUMANA HUMANA HUMANA Care Teams Chip Crusher Operator Relationship Specialty Start Date End Date Emani West MD [address] [place] [address] PCP - General Family Medicine 08/14/23
--- OUTSIDE RECORDS SUMMARY | 2024-06-28 13:26 | XMS_ITS ---
Author Organization [facility] Address [address] [place] [address] Care Team Providers Care Hris Coordinator Name Role Phone Balta Perry MD Unavailable [phone] Emani West MD Primary Care Provider Active Problems Problem Noted Date Diagnosed Date [...] trace elements. Recent labs are available in [employer] including labs obtained October 02. These labs [...] her PO intake. Have reached out via [employer] chat to inform & clarify TPN plan. [...] active Assessment & Plan (05/10/2022 1:13 PM SOLE CEMENTER): -s/p left partial nephrectomy on 06/18/18. Doing [...] PVC's (premature ventricular contractions) 04/30 Lumbago 10/23/2011 Current Treatment and Therapy Plans No current plan information found. Past Treatment and Therapy Plans No past plan information found. Lifetime Dose Tracking * Chemical Lifetime Dose Automatic Entry Manual Entr y Fluoro Time 1.5 minutes 1.5 minutes 0 minutes Air kerma at the reference point (Ka,r) 145.4 mGy 1 45.4 mGy 0 mGy DLP 9,374 mGycm 9,374 mGycm 0 mGycm Resolved Problems Problem Noted Date Diagnosed Date Resolved Date Rash 09/23/2023 10/07/2023 Assessment & Plan (09/23/2023 11:12 AM CDT): Vaginal burning/rawness. Start Miconazole TID. Monitor. Hyperkalemia 09/20/2023 09/26/2023 Assessment & Plan (09/23/2023 10:57 AM CDT): Normalized. Kcl changed to TPN. Continue to monitor. Continue hold Lisinopril - BP stable. Assessment & Plan (09/20/2023 2:12 PM CDT): Today's lab reviewed. K 5.9; spoke w pharm Gilberto and we agreed to decrease the TPN KCL from 60meq to 20meq; repeat lab Saturday. Will hold GAVIN lisinopril. Assessment & Plan (09/20/2023 2:08 PM CDT): Today's lab reviewed w K 5.9; The TPN K content had been reduced from 60meq/L to 20meq/L and the gavin is on hold. Repeat lab for Saturday. I spoke w pharmacist (OMNICAARACELI) Arias; He confirmed that the current regimen includes [...]
--- OUTSIDE RECORDS SUMMARY | 2024-06-28 13:26 | XMS_ITS | Clinical Summary ---
Author Organization [facility] Address [address] [place] [address] Care Team Providers Care Rug Dry Room Attendant Name Role Phone Emani West MD Primary Care Provider Active Problems Problem Noted Date Diagnosed Date Adjustment and management of vascular access dev ice 10/15/2023 Resolved Problems Problem Noted Date Diagnosed Date Resolved Date On total parenteral nutrition (TPN) 10/15/2023 10/21/2023 Social History Tobacco Use Types Packs/Day Years Used Date Smoking Tobacco: Never Assessed Comments Unknown Sex and Gender Information Value Date Recorded Sex Assigned at Not on file Legal Sex Female 4:01 PM CDT Gender Identity Not on file Sexual Orientation Not on file Last Filed Vital Signs Vital Sign Reading Time Taken Comments Blood Pressure 128/52 10/15/2023 3:18 PM CDT Pulse 76 10/15/2023 3:18 PM CDT Temperature 36.9 C (98.5 F) 10/15/2023 3:18 PM CDT Respiratory Rate 16 10/15/2023 3:18 PM CDT Oxygen Saturation 99% 10/15/2023 3:18 PM CDT Inhaled Oxygen Concentration - - Weight - - Height - - Body Mass Index - - Plan of Treatment Health Maintenance Due Date Last Done Comments Annual Medicare Wellness Visit 05/25/2007 Dexa Scan (General) 05/25/2007 COVID-19 Vaccine ( season) 2023 11/26/2022, 03/13/2022, 08/02/2021, Additional history exists PHQ-2 (Physician Hurt) 03/04/2024 DTaP, Tdap and Td Vaccines (2 - Td or Tdap) 07/09/2027 07/08/2017, 07/08/2017 Pneumococcal Vaccine: 50+ Years Completed 09/01/2016, 03/10/2016, 05/07/2014, Additional history exists Zoster Vaccines Completed 02/18/2021, 12/19/2020 RSV Immunization or 60+ Years Completed 11/10/2022 Meningococcal B Vaccine Aged Out No l onger eligible based on patient's age to complete this topic Meningococcal Vaccine Aged Out No duran kishore eligible based on patient's age to complete this topic RSV Immunizations Under 20 Months Aged Out No longer eligible based on patient's age to complete this topic Insurance HUMANA Care Teams Rug Dry Room Attendant Relationship Specialty Start Date End Date Emani West MD [address] [facility] [address] [place], [place] [id number] PCP - General FAMILY PRACTICE 01/09/24
--- NOTE | 2024-06-28 13:27 | ED.GENADULT ---
HPI - General Adult General Chief complaint: Upper Respiratory Infection Stated complaint: covid Time Seen by Provider: 06/28/24 13:27 Source: patient Mode of arrival: ambulatory Limitations: no limitations History of Present Illness HPI narrative: 84-year-old female patient presents to the [facility] with complaints of cold symptoms. Patient states she tested positive the Saturday before and was treated with the PACS clove id. Patient states that she tested herself after she completed the Paxil of it and she was COVID negative. Patient states she started having symptoms again today and she tested herself at home and tested positive again for COVID. Patient is complaining of runny nose, congestion, a mild cough and chills and body aches. Related Data Home Medications ?Medication ?Instructions ?Recorded ?Confirmed ?Last Taken ?Type aspirin 81 mg tablet,delayed 81 mg PO DAILY 06/30/19 01/25/24 01/18/23 21:00 History release (Adult Low Dose Aspirin) multivitamin 1 tablet PO DAILY 06/30/19 01/25/24 01/19/23 09:00 History Allergies Allergy/AdvReac Type Severity Reaction Status Date / Time Penicillins Allergy Intermediate unknown Verified 06/28/24 13:32 codeine Allergy Unknown Unknown Verified 06/28/24 13:32 prochlorperazine (From Allergy nerve pain Verified 06/28/24 13:32 Compazine) Review of Systems Review of Systems: CONSTITUTIONAL: Positive fever, chills, body aches, denies sweats. EYES: Denies visual changes, redness, or discharge. ENT: positive rhinorrhea, congestion, sore throat, denies otalgia. CARDIOVASCULAR: Denies chest pain, palpitations, or edema. RESPIRATORY: positive cough , denies dyspnea. GASTROINTESTINAL: Denies abdominal pain, nausea, vomiting, or diarrhea. GENITOURINARY: Denies dysuria or hematuria. SKIN: Denies rash or itching. MUSCULOSKELETAL: Denies back pain, joint pain, or myalgia. NEUROLOGIC: Denies headache, numbness, or weakness. PSYCHIATRIC: Denies anxiety or depression. [facility] Past Medical History Medical History Heat rash Pelvic pain in female Diverticulitis of colon with perforation (~07/2023) Slow transit constipation Hx of renal cell carcinoma (~06/2018) Matt Gonzalez Osteopenia Prediabetes (~2018) History of basal cell cancer (~2017) Hyperlipidemia (~2017) Arthralgia Surgical History Surgical History Status post reversal of ileostomy (~11/2023) History of laparotomy (~08/2023) status post sigmoidectomy with end-to-end colorectal anastomosis, small-bowel resection with primary anastomosis and temporary diverting loop ileostomy due to complicated diverticulitis 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 History of cholecystectomy (~1994) History of hysterectomy (~1988) Family History Family History Grandparent Cerebrovascular accident Father Family history of chronic obstructive pulmonary disease Mother Family history of chronic obstructive pulmonary disease Social History Social History Social History: moved from [place] to [place] 12/2017; Smoking status: Never smoker Second hand tobacco smoke exposure: Yes (family members smoke) Alcohol intake: never Alcohol use details: 1 PER MONTH Substance use: never Substance use type: does not use Lack of Transportation: No Lack of Food: Never True Current Housing: I Have Housing Concerned About Future Housing: No Difficulty Paying Gas/Electric Bills: No Difficulty Paying for Meds: No Currently Unemployed: No Education: High School Diploma/GED Difficulty w/ Childcare or Family Care: No Living arrangements: alone Additional living arrangements comments: [place] Occupation/Education: retired Gender identity (if verbalized by the patient): Female Spiritual care concerns: No Agree to blood products: Yes Comments At the time of my signature I agree with nursing past medical history, surgical, social, and family history. There is no relevant family history pertinent to the presenting complaint. Exam Narrative: GENERAL: Well-appearing, well-nourished, and in no acute distress. HEAD: Normocephalic, atraumatic. EYES: PERRLA and EOMI. ENT: Nares clear, no rhinorrhea or epistaxis. Mucous membranes moist. posterior pharynx with no erythema, tonsillar enlargement, exudates or lesions present. Bilateral TMs are clear no erythema edema or foreign bodies the canal. Some postnasal drip noted to posterior pharynx. NECK: Supple. No lymphadenopathy CHEST: Clear to auscultation. No respiratory distress. HEART: Regular rate and rhythm. No murmur heard. Normal peripheral pulses. ABDOMEN: Soft, nontender, nondistended, normal active bowel sounds. EXTREMITIES: Normal range of motion. No edema. SKIN: Warm, dry, no rash. NEURO: No focal deficits. Alert and oriented x3. Course Course Level of Care: Express Care Visit Vital Signs Vital signs: Vital Signs Temperature 37.2 C 06/28/24 13:34 Pulse Rate 108 H 06/28/24 13:34 Respiratory Rate 18 06/28/24 13:34 Blood Pressure 150/83 H 06/28/24 13:34 Pulse Oximetry 97 06/28/24 13:34 Oxygen Delivery Room Air 06/28/24 13:34 Temperature 37.2 C 06/28/24 13:34 Pulse Rate 108 H 06/28/24 13:34 Respiratory Rate 18 06/28/24 13:34 Blood Pressure 150/83 H 06/28/24 13:34 Pulse Oximetry 97 06/28/24 13:34 Oxygen Delivery Room Air 06/28/24 13:34 Vital signs reviewed. The patient has been informed that they may have pre-hypertension or Hypertension based on a BP reading in the department. I recommend that the patient call the primary care provider listed on their discharge instructions or a physician of their choice this week to arrange follow up for further evaluation of possible pre-hypertension or Hypertension Medical Decision Making MDM Narrative Medical decision making narrative: Discussed with patient that she did test positive again for COVID today in the clinic. Discussed with her that there is a chance for some people after being treated with Paxlovid have a COVID rebound effect. Some most of the time the symptoms come back and are not as severe as the 1st round of COVID however because she is already completed the 5 day course of Paxlovid she will not need another round of PACs slow but but rather treat her symptoms until the virus has run its course. Discussed with patient again if she has worsening chest pain or shortness of breath that she needs to go to the ER for further evaluation and treatment. Patient verbalized understanding and we did discuss about [id number] medications that she can use to treat her symptoms. Differential Diagnosis Differential Diagnosis: Differential diagnosis: Allergic rhinitis, chronic sinusitis, tonsillitis, acute sinusitis, infectious mononucleosis, seasonal influenza, pertussis, diphtheria, meningococcal disease, viral syndrome, viral bronchitis, RSV, COVID-19 Vital Signs Vital Signs: Vital Signs Temperature 37.2 C 06/28/24 13:34 Pulse Rate 108 H 06/28/24 13:34 Respiratory Rate 18 06/28/24 13:34 Blood Pressure 150/83 H 06/28/24 13:34 Pulse Oximetry 97 06/28/24 13:34 Oxygen Delivery Room Air 06/28/24 13:34 Temperature 37.2 C 06/28/24 13:34 Pulse Rate 108 H 06/28/24 13:34 Respiratory Rate 18 06/28/24 13:34 Blood Pressure 150/83 H 06/28/24 13:34 Pulse Oximetry 97 06/28/24 13:34 Oxygen Delivery Room Air 06/28/24 13:34 Lab Data Labs: Lab Results 06/28/24 Range/Units 13:52 POC Influenza A Ag Pending POC Influenza B Ag Pending POC SARS CoV-2 Ag Pending Critical Care Time Critical Care Time Critical Care Time: No Discharge Plan Discharge Clinical Impression: COVID-19 Patient Disposition: Home Condition: Stable Instructions: Antibiotic Form, COVID-19 (Coronavirus Disease 2019) (ED) Additional Instructions: COVID-19 is a contagious respiratory illness caused by a virus that spreads from person to person. The virus is transmitted through respiratory droplets from coughing, sneezing, talking or laughing. Droplets not blocked by masks can travel up to 6 feet. Masks are meant to decrease the chance of you spreading the virus to others. COVID-19 is usually a self-limited illness with most people experiencing mild to moderate respiratory illness and recovery without requiring special treatment. While most patients have mild to moderate symptoms, some can develop serious illness that requires hospitalization. This may develop after a week of illness. INSTRUCTIONS Personal Care Rest Drink plenty of fluids (non-alcoholic) Acetaminophen (Tylenol?) 650 mg every 6 hours and/or Ibuprofen (Advil?) 600 mg every 6-8 hours as needed to reduce fever, aches or other pains Treat any bothersome symptoms with [id number] medication Limit the spread to others Isolate yourself as completely as possible. Visit the Stop the Spread General COVID FAQs for additional information. When to seek further evaluation: Feeling short of breath or having trouble breathing Persistent pain or pressure in the chest New confusion or inability to become fully awake Bluish lips or face Symptoms last over 10 days and get worse instead of better Patient Language: Cypriot Prescriptions: No Action aspirin [Adult Low Dose Aspirin] 81 mg tablet,delayed release (DR/EC) 81 mg PO DAILY multivitamin Tablet 1 tablet PO DAILY lisinopril 10 mg tablet 10 mg PO DAILY Qty: 90 1RF atorvastatin 10 mg tablet See Rx Instructions .ROUTE .COMPLEX Qty: 90 3RF Dose Instruction: TAKE 1 TABLET EVERY DAY Rx Instructions: TAKE 1 TABLET EVERY DAY Follow-up/Referrals: Monse West MD [Primary Care Provider] - Time of Disposition: 13:56
--- OUTSIDE RECORDS SUMMARY | 2024-06-28 13:29 | XMS_ITS | Continuity of Care Document ---
Author Organization [facility] Address [address] [place] [address] [place] [address] Phone Care Team Providers Care Clinical Research Manager Name Role Phone Unavailable Unavailable Unavailable Advance Directives Directive Yes / No Effective Date File Name No Information Encounters Encounter Description Practice Location Reason(s) For Visit Diagnoses Date Provider Providers Copied on Encounter [facility], [address] [place], [place], [id number], [place] tel:[phone] [facility] No Information [phone] No Information Family [...]
[2024-06-28 13:34] VITALS: BP 150/83; PULSE 108; RESP 18; TEMP 37.2; O2SAT 97
[2024-06-28 13:54] LABS: EDCOVIDSCREEN Positive (Negative); EDINFLUASCREEN Negative (Negative); EDINFLUBSCREEN Negative (Negative)
== END 2024-06-28 13:59 | disposition home or self-care (01) ==
PROVIDERS: Emergency Provider Nurse Practitioner Family; PCP Family Medicine
DX: U07.1 COVID-19 (principal); E78.5 Hyperlipidemia, unspecified; R73.03 Prediabetes; M85.80 Other specified disorders of bone density and structure, unspecified site; Z85.528 Personal history of other malignant neoplasm of kidney; Z90.5 Acquired absence of kidney
CPT/HCPCS: 87426; 87804; 99212; G0463

== ENCOUNTER 2024-07-10 13:38 | Outpatient (CLI) | payer MEDICARE, SELFPAY ==
--- OUTSIDE RECORDS SUMMARY | 2024-07-10 13:42 | XMS_ITS | Encounter Summary ---
Author Organization [facility] Address [address] [place] [address] Care Team Providers Care Client Portfolio Manager Name Role Phone Emani West MD Primary Care Provider Encounter Details Date Type Department Care Team (Late st Contact Info) Description 05/10/2022 Lab Requisition [facility] DermPath Lab [address] [place] [id number] Samy Montesinos MD [address] [facility] [place] [address] Social History Tobacco Use Types Packs/Day Years Used Date Smoking Tobacco: Never Assessed Comments Unknown Sex and Gender Information Value Date Recorded Sex Assigned at Not on file Legal Sex Female 5:08 AM LEGAL OPERATIONS MANAGER Gender Identity Not on file Sexual Orientation Not on file documented as of this encounter Plan of Treatment Not on file documented as of this encounter Procedures Procedure Name Priority Date/Time Associated Diagnosis Comments DERMATOPATHOLOGY Routine 05/09/2022 12:0 0 AM LEGAL OPERATIONS MANAGER documented in this encounter Results * DERMATOPATHOLOGY (05/09/2022 12:00 AM LEGAL OPERATIONS MANAGER) Case Report Dermatopathology Report Case: [id number] Authorizing Provider: Samy Montesinos MD Collected: 05/09/2022 12:00 AM Ordering Location: [facility] Care DermPath Lab Received: 05/10/2022 04:26 PM Pathologist: Karrie Pace MD Specimens: A) - Skin, right shoulder B) - Skin, right dorsum hand 10:57 AM [facility] D[facility]MAT[facility]Y [facility]OR[facility] Final Diagnosis Specimen A. SKIN, right shoulder: LICHEN PLANUS-LIKE KERATOSIS (BENIGN LICHENOID KERATOSIS) (L82.1) Specimen B. 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 Jar 0. 10:57 AM [facility]ERMATOPATH[facility]Y [facility] Microscopic Description Specimen A. SKIN, right shoulder: The epidermis is mildly acanthotic. There is a lichenoid infiltrate with vacuolar changes of basilar keratinocytes and scattered necrotic keratinocytes. Specimen B. SKIN, right dorsum hand: The epidermis is mildly acanthotic. There is a lichenoid infiltrate with vacuolar changes of basilar keratinocytes and scattered necrotic keratinocytes. 10:57 AM [facility] DERMATOPATH[facility]Y [facility] Disclaimer An external and internal positive and negative controls are appropriate for the histochemical, immunohistochemical and immunofluorescence stain(s) in this case (if any), except where stated explicitly. The performance characteristics of the stain(s) cited in this report were developed and its performance characteristic determined by the Dermatopathology Laboratory at [facility], directed by Dr. Hali Avitia. These tests need not be, and therefore are not, approved by the [place] Food and Drug Administration. The tests are used for clinical purposes. Billing Codes Specimen Charges Stain Charges 25971 57838 1 1 10:57 AM [facility] DERMATOPATH[facility]Y [facility] Embedded Images 10:57 AM [facility]MATOPATH[facility] Pathology/Cytology TISSUE SPECIMEN FROM SKIN / Unknown 05/09/2022 05/10/2022 4:26 PM LEGAL OPERATIONS MANAGER Miscellaneous samples (specimen) TISSUE SPECIMEN FROM SKIN / Unknown 05/09/2022 05/10/2022 4:26 PM LEGAL OPERATIONS MANAGER us Samy Montesinos MD LAB - PATHOLOGY/CYTOLOGY ORDER UNIQUE Final Result DERMATOPATHOLOGY LABORATORY [facility] - Department of Dermatology [facility] [address] [place] [address], [address] [phone] documented in this encounter Visit Diagnoses Not on filedocumented in this encounter Care Teams Client Portfolio Manager Relationship Specialty Start Date End Date Emani West MD [address] [place] [address] PCP - General Family Medicine 08/14/23 documented as of this encounter
--- OUTSIDE RECORDS SUMMARY | 2024-07-10 13:42 | XMS_ITS | Encounter Summary ---
Author Organization [facility] Address [address] [place] [address] Phone Care Team Providers Care Topographical Engineer Name Role Phone Yann Pineda MD Primary Care Provider [phone] Emani West MD Primary Care Provider Balta Perry MD Unavailable [phone] Balta Perry MD Primary Care Provider Emani West MD Primary Care Provider Encounter Details Date Type Department Care Team (Latest Contact Info) Description 03/21/2018 Orders Only [facility] Scanning, Provider Social History Tobacco Use Types Packs/Day Years Used Date Smoking Tobacco: Never Comments Unknown Sex and Gender Information Value Date Recorded Sex Assigned at Not on file Legal Sex Female 3:59 AM 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 MARROW TRANSPLANT Gender Identity Female 05/03/2022 2:17 PM REGISTERED NURSE BONE MARROW TRANSPLANT Sexual Orientation Not on file documented as [...] documented as of this encounter Care Teams Topographical Engineer Relationship Specialty Start Date End Date Yann Pineda MD [address] [place] [address] PCP - General Family Practice 03/21/18 05/04/20 Emani West MD [address] [place] [address] PCP - General 05/05/20 08/22/23 Balta Perry MD [address] [facility] [phone] [place] [address] PCP - General Colon and Rectal Surgery 08/23/2308/28 Emani West MD [facility] [place] [address] PCP - General Family Practice 08/30/23 Balta Perry MD [address] [facility] [id number] [place] [address] Surgeon Colon and Rectal Surgery 03/21/23 documented as of this encounter
--- OUTSIDE RECORDS SUMMARY | 2024-07-10 13:42 | XMS_ITS | Clinical Summary ---
Author Organization [facility] Care Team Providers Care Automatic Developer Name Role Phone Unavailable Primary Care Provider Unavailabl e Social History Tobacco Use Types Packs/Day Years Used Date Smoking Tobacco: Never Assessed Comments Unknown Sex and Gender Information Value Date Recorded Sex Assigned at Not on file Legal Sex Female 11:55 AM SWIMMING POOL ATTENDANT Gender Identity Not on file Sexual Orientation [...]
--- OUTSIDE RECORDS SUMMARY | 2024-07-10 13:42 | XMS_ITS | Clinical Summary ---
Author Organization [facility] Address [address] [place] [address] Care Team Providers Care Environmental Compliance Engineer Name Role Phone Emani West MD Primary Care Provider Source Comments [facility],non-owned Affiliates and Associated Physician Practices is amultiple site organization consisting of ambulatory clinics and hospital sitesin [place], [place], [place] and [place]. This disclosure is being madepursuant to the Care Everywhere program and may not contain all information available regarding this patient. Last updated 17.[facility] [employer] Social History Tobacco Use Types Packs/Day Years Used Date Smoking Tobacco: Never Assessed Comments Unknown Sex and Gender Information Value Date Recorded Sex Assigned at Not on file Legal Sex Female 5:08 AM COLLABORATING SUPERVISING PHYSICIAN Gender Identity Not on file Sexual Orientation [...] & PPO HUMANA HUMANA HUMANA Care Teams Environmental Compliance Engineer Relationship Specialty Start Date End Date Emani West MD [address] [place] [address] PCP - General Family Medicine 08/14/23
--- OUTSIDE RECORDS SUMMARY | 2024-07-10 13:42 | XMS_ITS | Encounter Summary ---
Author Organization [facility] Address [address] [place] [address] Phone Care Team Providers Care Renewable Energy Broker Name Role Phone Yann Pineda MD Primary Care Provider [phone] Emani West MD Primary Care Provider Balta Perry MD Unavailable [phone] Balta Perry MD Primary Care Provider Emani West MD Primary Care Provider Encounter Details Date Type Department Care Team (Latest Contact Info) Description 04/01/2018 Orders Only [facility] Scanning, Provider Social History Tobacco Use Types Packs/Day Years Used Date Smoking Tobacco: Never Comments Unknown Sex and Gender Information Value Date Recorded Sex Assigned at Not on file Legal Sex Female 3:59 AM FURNACE PUNCHER Gender Identity Female 05/03/2022 2:17 PM FURNACE PUNCHER Sexual Orientation Not on file documented as [...] documented as of this encounter Care Teams Renewable Energy Broker Relationship Specialty Start Date End Date Yann Pineda MD [address] [place] [address] PCP - General Family Practice 03/21/18 05/04/20 Emani West MD [address] [place] [address] PCP - General 05/05/20 08/22/23 Balta Perry MD [address] [facility] [phone] [place] [address] PCP - General Colon and Rectal Surgery 08/23/2308/28 Emani West MD [facility] [facility] [address] [facility] [address] [place] [address] PCP - General Family Practice 08/30/23 Balta Perry MD [id number] [place] [address] Surgeon Colon and Rectal Surgery 03/21/23 documented as of this encounter
--- OUTSIDE RECORDS SUMMARY | 2024-07-10 13:42 | XMS_ITS | Encounter Summary ---
Author Organization [facility] Address [address] [place] [address] Phone Care Team Providers Care Momd Teacher Name Role Phone Yann Pineda MD Primary Care Provider [phone] Emani West MD Primary Care Provider Balta Perry MD Unavailable [phone] Balta Perry MD Primary Care Provider Emani West MD Primary Care Provider Encounter Details Date Type Department Care Team (Latest Contact Info) Description 03/17/2018 Orders Only [facility] Scanning, Provider Social History Tobacco Use Types Packs/Day Years Used Date Smoking Tobacco: Never Comments Unknown Sex and Gender Information Value Date Recorded Sex Assigned at Not on file Legal Sex Female 3:59 AM HOT DIP PLATING SUPERVISOR Gender Identity Female 05/03/2022 2:17 PM HOT DIP PLATING SUPERVISOR Sexual Orientation Not on file documented as [...] documented as of this encounter Care Teams Momd Teacher Relationship Specialty Start Date End Date Yann Pineda MD [address] [place] [address] PCP - General Family Practice 03/21/18 05/04/20 Emani West MD [address] [place] [address] PCP - General 05/05/20 08/22/23 Balta Perry MD [address] [facility] [phone] [place] [address] PCP - General Colon and Rectal Surgery 08/23/2308/28 Emani West MD [facility] [facility] [address] [place] [address] PCP - General Family Practice 08/30/23 Balta Perry MD [phone] [place] [address] Surgeon Colon and Rectal Surgery 03/21/23 documented as of this encounter
--- OUTSIDE RECORDS SUMMARY | 2024-07-10 13:43 | XMS_ITS ---
Author Organization [facility] Address [address] [place] [address] Care Team Providers Care Web Publisher Name Role Phone Balta Perry MD Unavailable [phone] Emani West MD Primary Care Provider Active [...] trace elements. Recent labs are available in [employer] including labs obtained October 02. These labs [...] her PO intake. Have reached out via [employer] chat to inform & clarify TPN plan. [...] active Assessment & Plan (05/10/2022 1:13 PM SIGNALMAN): -s/p left partial nephrectomy on 06/18/18. Doing [...]
--- OUTSIDE RECORDS SUMMARY | 2024-07-10 13:43 | XMS_ITS | Clinical Summary ---
Author Organization [facility] Address [address] [place] [id number] Care Team Providers Care Sales And Service Technician Name Role Phone Balta Perry MD Unavailable [phone] Emani West MD Primary Care Provider Allergies [...] line care, Informant: Self, Reported on 11/18/2023 [id number]- Sb-nwgez-pzkwml 35-20-5 mEq/20 mL solution Infuse 1,800 mL into a venous catheter daily 150ml/hr SEE IV ORDERS 4 Active Additional Information Patient taking differently:1,800 mL intravenousNightly, 150ml/hr SEE IV ORDERS,Indications: TPN, Informant: Self, Reported on 11/18/2023 busPIRone (BUSPAR) 5 mg tabletIndicatio ns:Generalized Anxiety Disorder Take 1 tablet (5 mg total) by mouth tobacco cutter before breakfast 4 Active lisinopriL (PRINIVIL,ZESTR [place]) [...] trace elements. Recent labs are available in Instant [facility] including labs obtained October 02. These labs [...] her PO intake. Have reached out via Data Maid chat to inform & clarify TPN plan. 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 Doing [...] materials from doctor or pharmacy Never 09/08/2023 [facility] Utilities Answer Date Recorded In the [...] often do you attend chur ch or religion services? More than 4 times per year 09/12/2023 Do you belong to any clubs o r organizations such as taoism groups, unions, fraternal or athletic groups, or [...] place to sleep or slept in a longterm (including now)? No 07/01/2023 Housing Stability Vital Sign Answer [place] e Recorded In the last 12 months, was t here a time when you were not able to pay the mortgage or rent on time? No 09/12/2023 In the past 12 months, how m any times have you moved where you were living? 0 09/12/2023 At any time in the past 12 m [facility], were you homeless or living in a longterm (including now)? No 09/12/2023 Personal Safety Answer Date Recorded Have you ever been in or are you currently in a harmful physical or emotional relationship or is someone making you feel afraid or unsafe? Denies 11/29/2023 Comments No Sex and Gender Information Value Date Recorded Sex Assigned at Not on file Legal Sex Female 3:59 AM BUSINESS MANAGER Gender Identity Female 05/03/2022 2:17 PM BUSINESS MANAGER Sexual Orientation Not on file Obstetrics History [...] - 2023-2 5 season) 2023 04/29/2020, 04/08/2020 Depression Screening 09/08/2024 09/09/2023, 08/29/19 Influenza Vaccine (Season Ended) 2024 11/11/2018, 11/02/2017, 12/22/2015, Additional history exists Fall Risk Assessment 11/30/2024 12/01/2023 DTaP/Tdap/Td Vaccine [...] 11/08/2023 Insurance [employer] CHOICE MEDICARE PPO MEDICARE [facility] HU[employer]NA CHOICE MEDICARE PPO HU[employer] CHOICE MEDICARE PPO Advance Directives For more information, please contact: [phone] Documents on File Type Date Recorded Patient House Coordinator Expl anation ADVANCE DIRECTIVE 08/13/2023 5:56 AM Power of Candy Spreader Helper-Medical * Full Code (Latest Code Status on [...] 8:30 PM 07/04/2023 4:25 PM Care Teams Sales And Service Technician Relationship Specialty Start Date End Date Emani West MD [address] [place] [address] [address] PCP - General Family Practice 08/30/23 Balta Perry MD [phone] [place] [address] Surgeon Colon and Rectal Surgery 03/21/23
--- OUTSIDE RECORDS SUMMARY | 2024-07-10 13:43 | XMS_ITS | Clinical Summary ---
Author Organization [facility] Address [address] [place] [address] Care Team Providers Care Welding Manager Name Role Phone Emani West MD [...] 03/13/2022, 08/02/2021, Additional history exists PHQ-2 (Physician Lime) 03/04/2024 DTaP, Tdap and Td Vaccines (2 [...] complete this topic Insurance HU[employer]NA Care Teams Welding Manager Relationship Specialty Start Date End Date Emani West MD [address] [facility] [address] [place], [place] [id number] PCP - General FAMILY PRACTICE 01/09/24
--- OUTSIDE RECORDS SUMMARY | 2024-07-10 13:43 | XMS_ITS | Referral Summary ---
Author Organization [facility] Address [facility] [place] [address] Care Team Providers Care Jig Boring Machine Set Up Operator Name Role Phone Balta Perry MD Unavailable [phone] Emani West MD Primary Care Provider Allergies [...] line care, Informant: Self, Reported on 11/18/2023 [id number]- Pd-qbnpa-alzydo 35-20-5 mEq/20 mL solution Infuse 1,800 mL into a venous catheter daily 150ml/hr SEE IV ORDERS 4 Active Additional Information Patient taking differently:1,800 mL intravenousNightly, 150ml/hr SEE IV ORDERS,Indications: TPN, Informant: Self, Reported on 11/18/2023 busPIRone (BUSPAR) 5 mg tabletIndicatio ns:Generalized Anxiety Disorder Take 1 tablet (5 mg total) by mouth wildlife photographer before breakfast 4 Active lisinopriL (PRINIVIL,ZESTR [place]) [...] trace elements. Recent labs are available in [facility] including labs obtained October 02. These labs [...] her PO intake. Have reached out via 2,[id number] chat to inform & clarify TPN plan. [...] malnutrition, high output. 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 [...] materials from doctor or pharmacy Never 09/08/2023 [facility] Utilities Answer Date Recorded In the past 12 months has e [employer], [employer], oil, or water [employer] threatened to shut off services in your [...] How often do you attend chur or zoroastrianism services? More than 4 times per year 09/12/2023 Do you belong to any clubs o r organizations such as presybeterian groups, unions, fraternal or athletic groups, or [...] place to sleep or slept in a custodial (including now)? No 07/01/2023 Housing Stability Vital Sign Answer [place] e Recorded In the last 12 months, was t here a time when you were not able to pay the mortgage or rent on time? No 09/12/2023 In the past 12 months, how m any times have you moved where you were living? 0 09/12/2023 At any time in the past 12 m [facility], were you homeless or living in a custodial (including now)? No 09/12/2023 Personal Safety Answer Date Recorded Have you ever been in or are you currently in a harmful physical or emotional relationship or is someone making you feel afraid or unsafe? Denies 11/29/2023 Comments No Sex and Gender Information Value Date Recorded Sex Assigned at Not on file Legal Sex Female 3:59 AM TRACK LAYING SUPERVISOR Gender Identity Female 05/03/2022 2:17 PM TRACK LAYING SUPERVISOR Sexual Orientation Not on file Last Filed [...] 11/08/2023 Insurance HU[employer]NA CHOICE MEDICARE PPO MEDICARE [facility] HU[employer]NA CHOICE MEDICARE PPO [employer] CHOICE MEDICARE PPO Advance Directives For more information, please contact: [phone] Documents on File Type Date Recorded Patient Journalism Instructor Expl anation ADVANCE DIRECTIVE 08/13/2023 5:56 AM Power of Manager Office Services-Medical * Full Code (Latest Code Status on [...] 8:30 PM 07/04/2023 4:25 PM Care Teams Jig Boring Machine Set Up Operator Relationship Specialty Start Date End Date Emani West MD [facility] [address] [address] PCP - General Family Practice 08/30/23 Balta Perry MD [phone] [place] [address] Surgeon Colon and Rectal Surgery 03/21/23
--- OUTSIDE RECORDS SUMMARY | 2024-07-10 13:43 | XMS_ITS | Encounter Summary ---
Author Organization [facility] Address [facility] [place] [address] Care Team Providers Care Labor Crew Supervisor Name Role Phone Balta Perry MD Primary Care Provider [phone] Emani West MD Primary Care Provider Encounter Details Date Type Department Care Team (Late st Contact Info) Description 10/15/2023 Therapy Plan [facility] One Day Services [address] [facility] [place], [place] [id number] Balta Perry MD [address] [place], [place] [id number] Social History Tobacco Use Types Packs/Day Years [...] device documented in this encounter Care Teams Labor Crew Supervisor Relationship Specialty Start Date End Date Balta Perry MD [address] [facility] [phone] [place] [address] PCP - General COLON/RECTAL SURGERY 10/14/23 01/08/24 Emani West MD [address] [facility] [address] [place] [address] PCP - General FAMILY PRACTICE 01/09/24 documented as of this encounter
--- OUTSIDE RECORDS SUMMARY | 2024-07-10 13:43 | XMS_ITS | Continuity of Care Document ---
Author Organization [facility] Address [address] [place] [address] [place] [address] Phone Care Team Providers Care Radial Drill Operator For Plastic Name Role Phone Unavailable Unavailable Unavailable Advance Directives Directive Yes / No Effective Date File Name No Information Encounters Encounter Description Practice Location Reason(s) For Visit Diagnoses Date Provider Providers Copied on Encounter [facility], [address] [place], [place], [id number], [place] tel:[phone] [facility] [facility] No Information 9200 0 No Information Family History Family Member Type Diagnosis Age At Onset No Information Payers Payer name Insurance type Covered democrat ID Authoriza tion(s) No Information Social History [...]
[2024-07-10 20:02] LABS: Vitamin D 25 Hydroxy 55.1 ng/mL
[2024-07-10 20:22] LABS: Basophils Percent Auto 0.4 % (0.2-1.2); Eosinophils Absolute Auto 0.2 K/mm3 (0-0.3); Eosinophils Percent Auto 1.4 % (0-4.4); Hematocrit 45.7 % (37.0-47.0); Hemoglobin 14.7 g/dL (12.0-15.0); Immature Granulocyte Absolute 0.03 K/mm3 (0.00-0.031); Immature Granulocyte Percent A 0.3 % (0-0.5); Lymphocytes Absolute Auto 3.84 K/mm3 (0.9-3.2); Lymphocytes Percent Auto 35.6 % (18.3-44.2); Mean Corpuscular HGB Conc 32.2 g/dl (32-36); Mean Corpuscular Hemoglobin 29.8 pg (26-34); Mean Corpuscular Volume 92.5 fl (80-100); Monocytes Absolute Auto 1.1 K/mm3 (0.1-0.6); Monocytes Percent Auto 9.8 % (2.6-8.5); Neutrophils Absolute Auto 5.7 K/mm3 (1.3-6.7); Neutrophils Percent Auto 52.5 % (45.5-73.1); Platelet Count Result 295 k/mm3 (150-375); Red Blood Count 4.94 M/mm3 (4.2-5.4); Red Cell Distribution Width 14.3 % (11.5-14.5); White Blood Count 10.8 K/mm3 (4.5-10.0)
[2024-07-10 20:32] LABS: Alanine Aminotransferase 51 U/L (6-35); Albumin Level 4.4 g/dL (3.5-5.1); Alkaline Phosphatase 87 U/L (38-126); Anion Gap 10 mmol/L (4-12); Aspartate Amino Transferase 53 U/L (14-36); Bilirubin,Total 0.4 mg/dL (0.2-1.3); Blood Urea Nitrogen 20 mg/dL (7-17); Calcium 9.9 mg/dL (8.4-10.2); Carbon Dioxide 25 mmol/L (22-30); Chloride 105 mmol/L (98-107); Cholesterol 157 mg/dL (0-200); Estimated Glomerular Filt Rate > 60; Glucose 101 mg/dL (65-110); HDL Direct 42 mg/dL; Potassium 4.2 mmol/L (3.4-5.0); Sodium 140 mmol/L (137-145); Triglycerides 253 mg/dL (<150)
[2024-07-10 20:43] LABS: LDL Cholesterol Direct 68 mg/dL
== END 2024-07-10 13:39 | disposition home or self-care (01) ==
PROVIDERS: PCP Family Medicine; Visit Provider Nurse Practitioner Family
DX: E78.5 Hyperlipidemia, unspecified (principal); I10 Essential (primary) hypertension; E55.9 Vitamin D deficiency, unspecified
CPT/HCPCS: 36415; 80053; 80061; 82306; 84443; 85025

== ENCOUNTER 2025-01-15 13:09 | Outpatient (CLI) | payer MEDICARE, SELFPAY ==
[2025-01-15 18:16] LABS: Hematocrit 45.0 % (37.0-47.0); Hemoglobin 14.0 g/dL (12.0-15.0); Immature Granulocyte Percent A 0.2 % (0-0.5); Lymphocytes Absolute Auto 3.68 K/mm3 (0.9-3.2); Mean Corpuscular HGB Conc 31.1 g/dl (32-36); Mean Corpuscular Hemoglobin 30.0 pg (26-34); Mean Corpuscular Volume 96.6 fl (80-100); Nucleated Red Blood Cells Absolute Auto 0.000 K/mm3 (0.0-0.012); Nucleated Red Blood Cells Perc 0.0 % (0.0-0.2); Platelet Count Result 309 k/mm3 (150-375); Red Blood Count 4.66 M/mm3 (4.2-5.4); White Blood Count 9.8 K/mm3 (4.5-10.0)
[2025-01-15 18:26] LABS: Alanine Aminotransferase 45 U/L (6-35); Albumin Level 4.3 g/dL (3.5-5.1); Alkaline Phosphatase 99 U/L (38-126); Anion Gap 8 mmol/L (4-12); Aspartate Amino Transferase 74 U/L (14-36); Bilirubin,Total 0.5 mg/dL (0.2-1.3); Blood Urea Nitrogen 16 mg/dL (7-17); Calcium 9.5 mg/dL (8.4-10.2); Carbon Dioxide 28 mmol/L (22-30); Chloride 106 mmol/L (98-107); Cholesterol 133 mg/dL (0-200); Estimated Glomerular Filt Rate > 60; Glucose 76 mg/dL (65-110); HDL Direct 35 mg/dL; Potassium 4.6 mmol/L (3.4-5.0); Sodium 142 mmol/L (137-145); Total Protein 7.8 g/dL (6.3-8.2); Triglycerides 124 mg/dL (<150)
[2025-01-15 18:28] LABS: Hemoglobin A1C 6.1 % (<5.7)
[2025-01-15 18:55] LABS: Thyroid Stimulating Hormone Reflex 3.110 uIU/mL (0.465-4.68)
== END 2025-01-15 13:10 | disposition home or self-care (01) ==
PROVIDERS: PCP Nurse Practitioner Family; Visit Provider Nurse Practitioner Family
DX: E78.5 Hyperlipidemia, unspecified (principal); I10 Essential (primary) hypertension; E55.9 Vitamin D deficiency, unspecified; R73.01 Impaired fasting glucose
CPT/HCPCS: 36415; 80053; 80061; 82306; 83036; 84443; 85025